=== PATIENT | male | born 1950 | race Caucasian/White ===

== ENCOUNTER 2017-06-16 13:00 | Inpatient (IN) | payer OTHER ==
[~2017-06-16] VITALS: Ht 180.3 cm; Wt 115.8 kg
[~2017-06-16 13:00] MED LIST: ALBIPROI INH; ALBU90OI6 INH; BUME2 PO; FURO20 PO; FURO80 PO; HYDACE5 PO; METAGLIP; METF500 PO; PIOG15 PO; SULTRIDS PO; VALS80 PO
[2017-06-16 13:49] LABS: BASOPHILS ABSOLUTE AUTO 0.04 K/mm3 (0.00-0.23); BASOPHILS PERCENT AUTO 0 % (0-2); EOSINOPHILS ABSOLUTE AUTO 0.02 K/mm3 (0.00-0.68); EOSINOPHILS PERCENT AUTO 0 % (0-6); Hematocrit 47.3 % (37.0-53.0); Hemoglobin 14.7 g/dL (13.5-17.5); IMMATURE GRAN PERCENT AUTO 1 % (0-1); LYMPHOCYTES ABSOLUTE AUTO 1.03 K/mm3 (0.84-5.20); LYMPHOCYTES PERCENT AUTO 9 % (21-46); MONOCYTES ABSOLUTE AUTO 0.96 K/mm3 (0.16-1.47); MONOCYTES PERCENT AUTO 8 % (4-13); Mean Corpuscular HGB 26.4 pg (26.0-34.0); Mean Corpuscular HGB Conc 31.1 g/dL (31.5-36.5); Mean Corpuscular Volume 85 fL (80-100); Mean Platelet Volume 9.3 fL (9.1-12.4); NEUTROPHILS ABSOLUTE AUTO 9.57 K/mm3 (1.96-9.15); NEUTROPHILS PERCENT AUTO 82 % (41-73); Platelet Count 466 K/mm3 (150-400); RDW Coefficient Variation 15.6 % (11.7-14.2); Red Blood Cell Count 5.56 M/mm3 (4.30-5.90); White Blood Cell Count 11.72 K/mm3 (4.00-11.30)
[2017-06-16 14:00] LABS: Alanine Aminotransfer (ALT/SGP 16 U/L (12-78); Albumin/Globulin Ratio 0.3 (0.8-1.8); Alk Phos 138 U/L (50-136); Anion Gap 4 mmol/L (6-16); Aspartate Aminotrans (AST/SGOT 21 U/L (12-37); Bilirubin, Total 0.9 mg/dL (0.1-1.0); Blood Urea Nitrogen 21 mg/dL (8-24); Bun/Creatinine Ratio 34.5 (12.0-20.0); CO2, Blood 32 mmol/L (21-32); Chloride, Blood 98 mmol/L (98-108); Creatinine, Blood 0.61 mg/dL (0.60-1.20); Globulin, Blood 6.7 g/dL (2.2-4.0); Glomerular Filtration Rate >60 (60-); Glucose, Blood 243 mg/dL (70-99); Potassium, Blood 4.1 mmol/L (3.5-5.5); Sodium, Blood 134 mmol/L (136-145); Total Protein, Blood 8.7 g/dL (6.4-8.2)
[2017-06-16 14:14] LABS: Source, Urine Clean Catch
[2017-06-16 14:32] LABS: Blood, Urine Neg (Neg); Glucose Qualitative, Urine Neg (Neg); Ketones, Urine 1+ (Neg); Leukocyte Esterase, Urine 3+ (Neg); Nitrite, Urine Pos (Neg); Protein, Urine 2+ (Neg); Specific Gravity, Urine 1.015 (1.003-1.022); Urobilinogen, Urine 4+ (Normal)
[2017-06-16 14:35] LABS: Bilirubin, Urine 1+ (Neg)
[2017-06-16 14:36] LABS: Appearance, Urine Turbid (Clear); Color, Urine Amber (P-Yellow)
[2017-06-16 14:38] LABS: Bacteria Many /hpf; Red Blood Cells, Urine 0-2 /hpf (0-2); Squamous Epithelial Cells Few /hpf (Few); Triple Phosphate Crystals Few /hpf
[2017-06-16 14:39] LABS: Amorphous Mod (0-Heavy)
[2017-06-16 14:41] LABS: Troponin I <0.015 ng/mL (0.000-0.040)
[2017-06-17 05:11] LABS: Hematocrit 43.7 % (37.0-53.0); Hemoglobin 13.3 g/dL (13.5-17.5); Mean Corpuscular HGB 26.5 pg (26.0-34.0); Mean Corpuscular HGB Conc 30.4 g/dL (31.5-36.5); Mean Corpuscular Volume 87 fL (80-100); Mean Platelet Volume 9.3 fL (9.1-12.4); Platelet Count 396 K/mm3 (150-400); RDW Coefficient Variation 15.4 % (11.7-14.2); RDW Standard Deviation 48.4 fL (35.1-46.3); Red Blood Cell Count 5.02 M/mm3 (4.30-5.90); White Blood Cell Count 10.85 K/mm3 (4.00-11.30)
[2017-06-17 05:27] LABS: International Normalized Ratio 1.21; Prothrombin Time Results 12.7 Sec (9.7-11.5)
[2017-06-17 05:44] LABS: Albumin, Blood 1.8 g/dL (3.4-5.0); Anion Gap 6 mmol/L (6-16); Blood Urea Nitrogen 19 mg/dL (8-24); Bun/Creatinine Ratio 27.8 (12.0-20.0); CO2, Blood 31 mmol/L (21-32); Calcium, Blood 8.4 mg/dL (8.5-10.1); Chloride, Blood 99 mmol/L (98-108); Creatinine, Blood 0.68 mg/dL (0.60-1.20); Glomerular Filtration Rate >60 (60-); Glucose, Blood 238 mg/dL (70-99); Magnesium, Blood 2.2 mg/dL (1.6-2.4); Phosphorus, Blood 3.6 mg/dL (2.5-4.9); Potassium, Blood 4.4 mmol/L (3.5-5.5); Sodium, Blood 136 mmol/L (136-145)
[2017-06-17 19:17] LABS: Vancomycin, Trough 10.2 ug/mL (5.0-10.0)
[2017-06-18 04:59] LABS: BASOPHILS ABSOLUTE AUTO 0.05 K/mm3 (0.00-0.23); BASOPHILS PERCENT AUTO 1 % (0-2); EOSINOPHILS ABSOLUTE AUTO 0.06 K/mm3 (0.00-0.68); EOSINOPHILS PERCENT AUTO 1 % (0-6); Hematocrit 36.5 % (37.0-53.0); Hemoglobin 11.1 g/dL (13.5-17.5); IMMATURE GRAN ABSOLUTE AUTO 0.08 K/mm3 (0.00-0.10); IMMATURE GRAN PERCENT AUTO 1 % (0-1); LYMPHOCYTES ABSOLUTE AUTO 0.67 K/mm3 (0.84-5.20); LYMPHOCYTES PERCENT AUTO 7 % (21-46); MONOCYTES ABSOLUTE AUTO 0.75 K/mm3 (0.16-1.47); MONOCYTES PERCENT AUTO 8 % (4-13); Mean Corpuscular HGB 26.4 pg (26.0-34.0); Mean Corpuscular HGB Conc 30.4 g/dL (31.5-36.5); Mean Corpuscular Volume 87 fL (80-100); Mean Platelet Volume 9.6 fL (9.1-12.4); NEUTROPHILS ABSOLUTE AUTO 8.38 K/mm3 (1.96-9.15); NEUTROPHILS PERCENT AUTO 84 % (41-73); Platelet Count 351 K/mm3 (150-400); RDW Coefficient Variation 15.4 % (11.7-14.2); RDW Standard Deviation 48.2 fL (35.1-46.3); Red Blood Cell Count 4.21 M/mm3 (4.30-5.90); White Blood Cell Count 9.99 K/mm3 (4.00-11.30)
[2017-06-19 05:08] LABS: BASOPHILS ABSOLUTE AUTO 0.04 K/mm3 (0.00-0.23); BASOPHILS PERCENT AUTO 0 % (0-2); EOSINOPHILS PERCENT AUTO 1 % (0-6); Hematocrit 34.8 % (37.0-53.0); Hemoglobin 10.3 g/dL (13.5-17.5); IMMATURE GRAN PERCENT AUTO 1 % (0-1); LYMPHOCYTES ABSOLUTE AUTO 0.78 K/mm3 (0.84-5.20); LYMPHOCYTES PERCENT AUTO 9 % (21-46); MONOCYTES ABSOLUTE AUTO 0.79 K/mm3 (0.16-1.47); MONOCYTES PERCENT AUTO 9 % (4-13); Mean Corpuscular HGB 26.7 pg (26.0-34.0); Mean Corpuscular HGB Conc 29.6 g/dL (31.5-36.5); Mean Platelet Volume 9.4 fL (9.1-12.4); NEUTROPHILS ABSOLUTE AUTO 7.09 K/mm3 (1.96-9.15); NEUTROPHILS PERCENT AUTO 80 % (41-73); Platelet Count 304 K/mm3 (150-400); RDW Coefficient Variation 15.3 % (11.7-14.2); RDW Standard Deviation 50.2 fL (35.1-46.3); Red Blood Cell Count 3.86 M/mm3 (4.30-5.90)
[2017-06-19 05:14] LABS: Mean Corpuscular Volume 90 fL (80-100)
[2017-06-19 05:30] LABS: Anion Gap 4 mmol/L (6-16); Blood Urea Nitrogen 15 mg/dL (8-24); Bun/Creatinine Ratio 30.2 (12.0-20.0); CO2, Blood 32 mmol/L (21-32); Calcium, Blood 7.8 mg/dL (8.5-10.1); Chloride, Blood 99 mmol/L (98-108); Glomerular Filtration Rate >60 (60-); Glucose, Blood 231 mg/dL (70-99); Potassium, Blood 4.1 mmol/L (3.5-5.5); Sodium, Blood 135 mmol/L (136-145)
[2017-06-23 11:04] LABS: BASOPHILS ABSOLUTE AUTO 0.03 K/mm3 (0.00-0.23); BASOPHILS PERCENT AUTO 1 % (0-2); EOSINOPHILS ABSOLUTE AUTO 0.06 K/mm3 (0.00-0.68); EOSINOPHILS PERCENT AUTO 1 % (0-6); Hematocrit 36.4 % (37.0-53.0); Hemoglobin 11.1 g/dL (13.5-17.5); IMMATURE GRAN ABSOLUTE AUTO 0.01 K/mm3 (0.00-0.10); IMMATURE GRAN PERCENT AUTO 0 % (0-1); LYMPHOCYTES PERCENT AUTO 14 % (21-46); MONOCYTES ABSOLUTE AUTO 0.51 K/mm3 (0.16-1.47); MONOCYTES PERCENT AUTO 10 % (4-13); Mean Corpuscular HGB 26.8 pg (26.0-34.0); Mean Corpuscular HGB Conc 30.5 g/dL (31.5-36.5); Mean Corpuscular Volume 88 fL (80-100); Mean Platelet Volume 8.9 fL (9.1-12.4); NEUTROPHILS PERCENT AUTO 74 % (41-73); Platelet Count 334 K/mm3 (150-400); RDW Coefficient Variation 15.9 % (11.7-14.2); RDW Standard Deviation 50.4 fL (35.1-46.3); Red Blood Cell Count 4.14 M/mm3 (4.30-5.90); White Blood Cell Count 5.11 K/mm3 (4.00-11.30)
[2017-06-23 11:28] LABS: Alanine Aminotransfer (ALT/SGP 15 U/L (12-78); Albumin, Blood 1.6 g/dL (3.4-5.0); Albumin/Globulin Ratio 0.3 (0.8-1.8); Alk Phos 131 U/L (50-136); Anion Gap 4 mmol/L (6-16); Aspartate Aminotrans (AST/SGOT 17 U/L (12-37); Bilirubin, Total 0.4 mg/dL (0.1-1.0); Blood Urea Nitrogen 17 mg/dL (8-24); Bun/Creatinine Ratio 38.6 (12.0-20.0); CO2, Blood 31 mmol/L (21-32); Calcium, Blood 8.4 mg/dL (8.5-10.1); Chloride, Blood 101 mmol/L (98-108); Creatinine, Blood 0.44 mg/dL (0.60-1.20); Globulin, Blood 5.7 g/dL (2.2-4.0); Glomerular Filtration Rate >60 (60-); Glucose, Blood 143 mg/dL (70-99); Potassium, Blood 4.2 mmol/L (3.5-5.5); Sodium, Blood 136 mmol/L (136-145); Total Protein, Blood 7.3 g/dL (6.4-8.2); Troponin I <0.015 ng/mL (0.000-0.040)
[2017-06-24 05:35] LABS: Hematocrit 36.1 % (37.0-53.0); Hemoglobin 10.9 g/dL (13.5-17.5); Mean Corpuscular HGB 26.5 pg (26.0-34.0); Mean Corpuscular HGB Conc 30.2 g/dL (31.5-36.5); Mean Corpuscular Volume 88 fL (80-100); Platelet Count 350 K/mm3 (150-400); RDW Standard Deviation 51.8 fL (35.1-46.3); Red Blood Cell Count 4.11 M/mm3 (4.30-5.90)
[2017-06-25 05:35] LABS: Hematocrit 35.1 % (37.0-53.0); Hemoglobin 10.6 g/dL (13.5-17.5); Mean Corpuscular HGB 26.5 pg (26.0-34.0); Mean Corpuscular HGB Conc 30.2 g/dL (31.5-36.5); Mean Corpuscular Volume 88 fL (80-100); Mean Platelet Volume 9.4 fL (9.1-12.4); Platelet Count 329 K/mm3 (150-400); RDW Coefficient Variation 15.8 % (11.7-14.2); RDW Standard Deviation 50.9 fL (35.1-46.3); White Blood Cell Count 2.29 K/mm3 (4.00-11.30)
[2017-06-26 04:47] LABS: Hematocrit 36.5 % (37.0-53.0); Hemoglobin 11.1 g/dL (13.5-17.5); Mean Corpuscular HGB 26.4 pg (26.0-34.0); Mean Corpuscular HGB Conc 30.4 g/dL (31.5-36.5); Mean Corpuscular Volume 87 fL (80-100); Mean Platelet Volume 8.9 fL (9.1-12.4); Platelet Count 324 K/mm3 (150-400); RDW Coefficient Variation 15.6 % (11.7-14.2); RDW Standard Deviation 49.6 fL (35.1-46.3); Red Blood Cell Count 4.21 M/mm3 (4.30-5.90); White Blood Cell Count 1.88 K/mm3 (4.00-11.30)
[2017-06-26 05:12] LABS: BAND PERCENT MAN 4 % (0-8); BASOPHILS ABSOLUTE MAN 0.01 K/mm3 (0.00-0.23); BASOPHILS PERCENT MAN 1 % (0-2); EOSINOPHILS ABSOLUTE MAN 0.09 K/mm3 (0.00-0.68); EOSINOPHILS PERCENT MAN 5 % (0-6); LYMPHOCYTES ABSOLUTE MAN 0.62 K/mm3 (0.84-5.20); LYMPHOCYTES PERCENT MAN 33 % (21-46); MONOCYTES ABSOLUTE MAN 0.56 K/mm3 (0.16-1.47); MONOCYTES PERCENT MAN 30 % (4-13); NEUTROPHILS ABSOLUTE MAN 0.58 K/mm3 (1.96-9.15); SEG NEUTROPHILS PERCENT MAN 27 % (41-73); TOTAL CELLS COUNTED 100
[2017-06-27 04:46] LABS: BASOPHILS ABSOLUTE AUTO 0.03 K/mm3 (0.00-0.23); BASOPHILS PERCENT AUTO 1 % (0-2); EOSINOPHILS ABSOLUTE AUTO 0.07 K/mm3 (0.00-0.68); EOSINOPHILS PERCENT AUTO 3 % (0-6); Hematocrit 35.9 % (37.0-53.0); Hemoglobin 10.9 g/dL (13.5-17.5); IMMATURE GRAN ABSOLUTE AUTO 0.01 K/mm3 (0.00-0.10); IMMATURE GRAN PERCENT AUTO 0 % (0-1); LYMPHOCYTES ABSOLUTE AUTO 0.87 K/mm3 (0.84-5.20); LYMPHOCYTES PERCENT AUTO 39 % (21-46); MONOCYTES ABSOLUTE AUTO 0.49 K/mm3 (0.16-1.47); MONOCYTES PERCENT AUTO 22 % (4-13); Mean Corpuscular HGB 26.3 pg (26.0-34.0); Mean Corpuscular HGB Conc 30.4 g/dL (31.5-36.5); Mean Corpuscular Volume 87 fL (80-100); Mean Platelet Volume 8.8 fL (9.1-12.4); NEUTROPHILS ABSOLUTE AUTO 0.78 K/mm3 (1.96-9.15); NEUTROPHILS PERCENT AUTO 35 % (41-73); Platelet Count 309 K/mm3 (150-400); RDW Coefficient Variation 15.6 % (11.7-14.2); RDW Standard Deviation 49.1 fL (35.1-46.3); Red Blood Cell Count 4.15 M/mm3 (4.30-5.90); White Blood Cell Count 2.25 K/mm3 (4.00-11.30)
[2017-06-28 05:00] LABS: BASOPHILS ABSOLUTE AUTO 0.03 K/mm3 (0.00-0.23); BASOPHILS PERCENT AUTO 1 % (0-2); EOSINOPHILS PERCENT AUTO 3 % (0-6); Hematocrit 37.2 % (37.0-53.0); Hemoglobin 11.2 g/dL (13.5-17.5); IMMATURE GRAN ABSOLUTE AUTO 0.01 K/mm3 (0.00-0.10); IMMATURE GRAN PERCENT AUTO 0 % (0-1); LYMPHOCYTES ABSOLUTE AUTO 1.04 K/mm3 (0.84-5.20); LYMPHOCYTES PERCENT AUTO 32 % (21-46); MONOCYTES ABSOLUTE AUTO 0.56 K/mm3 (0.16-1.47); MONOCYTES PERCENT AUTO 17 % (4-13); Mean Corpuscular HGB 26.3 pg (26.0-34.0); Mean Corpuscular HGB Conc 30.1 g/dL (31.5-36.5); Mean Corpuscular Volume 87 fL (80-100); Mean Platelet Volume 9.1 fL (9.1-12.4); NEUTROPHILS ABSOLUTE AUTO 1.56 K/mm3 (1.96-9.15); NEUTROPHILS PERCENT AUTO 47 % (41-73); Platelet Count 323 K/mm3 (150-400); RDW Coefficient Variation 15.9 % (11.7-14.2); RDW Standard Deviation 50.3 fL (35.1-46.3); Red Blood Cell Count 4.26 M/mm3 (4.30-5.90)
[2017-06-29 04:46] LABS: BASOPHILS ABSOLUTE AUTO 0.03 K/mm3 (0.00-0.23); BASOPHILS PERCENT AUTO 1 % (0-2); EOSINOPHILS ABSOLUTE AUTO 0.12 K/mm3 (0.00-0.68); EOSINOPHILS PERCENT AUTO 3 % (0-6); Hematocrit 36.8 % (37.0-53.0); Hemoglobin 11.4 g/dL (13.5-17.5); IMMATURE GRAN ABSOLUTE AUTO 0.02 K/mm3 (0.00-0.10); IMMATURE GRAN PERCENT AUTO 0 % (0-1); LYMPHOCYTES ABSOLUTE AUTO 1.16 K/mm3 (0.84-5.20); LYMPHOCYTES PERCENT AUTO 26 % (21-46); MONOCYTES ABSOLUTE AUTO 0.54 K/mm3 (0.16-1.47); MONOCYTES PERCENT AUTO 12 % (4-13); Mean Corpuscular HGB 26.8 pg (26.0-34.0); Mean Corpuscular Volume 86 fL (80-100); Mean Platelet Volume 8.7 fL (9.1-12.4); NEUTROPHILS ABSOLUTE AUTO 2.59 K/mm3 (1.96-9.15); NEUTROPHILS PERCENT AUTO 58 % (41-73); Platelet Count 319 K/mm3 (150-400); RDW Coefficient Variation 15.9 % (11.7-14.2); Red Blood Cell Count 4.26 M/mm3 (4.30-5.90); White Blood Cell Count 4.46 K/mm3 (4.00-11.30)
[2017-06-29 05:11] LABS: Anion Gap 6 mmol/L (6-16); Blood Urea Nitrogen 26 mg/dL (8-24); Bun/Creatinine Ratio 53.3 (12.0-20.0); CO2, Blood 29 mmol/L (21-32); Calcium, Blood 8.3 mg/dL (8.5-10.1); Chloride, Blood 104 mmol/L (98-108); Creatinine, Blood 0.49 mg/dL (0.60-1.20); Glomerular Filtration Rate >60 (60-); Glucose, Blood 109 mg/dL (70-99); Potassium, Blood 4.1 mmol/L (3.5-5.5); Sodium, Blood 139 mmol/L (136-145)
[2017-06-30 04:53] LABS: BASOPHILS ABSOLUTE AUTO 0.05 K/mm3 (0.00-0.23); BASOPHILS PERCENT AUTO 1 % (0-2); EOSINOPHILS ABSOLUTE AUTO 0.14 K/mm3 (0.00-0.68); EOSINOPHILS PERCENT AUTO 3 % (0-6); Hematocrit 37.4 % (37.0-53.0); Hemoglobin 11.2 g/dL (13.5-17.5); IMMATURE GRAN ABSOLUTE AUTO 0.02 K/mm3 (0.00-0.10); IMMATURE GRAN PERCENT AUTO 0 % (0-1); LYMPHOCYTES ABSOLUTE AUTO 1.24 K/mm3 (0.84-5.20); LYMPHOCYTES PERCENT AUTO 26 % (21-46); MONOCYTES ABSOLUTE AUTO 0.52 K/mm3 (0.16-1.47); MONOCYTES PERCENT AUTO 11 % (4-13); Mean Corpuscular HGB 26.3 pg (26.0-34.0); Mean Corpuscular HGB Conc 29.9 g/dL (31.5-36.5); Mean Corpuscular Volume 88 fL (80-100); Mean Platelet Volume 8.8 fL (9.1-12.4); NEUTROPHILS PERCENT AUTO 60 % (41-73); Platelet Count 331 K/mm3 (150-400); RDW Standard Deviation 51.5 fL (35.1-46.3); Red Blood Cell Count 4.26 M/mm3 (4.30-5.90); White Blood Cell Count 4.87 K/mm3 (4.00-11.30)
[2017-06-30 05:11] LABS: Anion Gap 5 mmol/L (6-16); Blood Urea Nitrogen 25 mg/dL (8-24); Bun/Creatinine Ratio 53.8 (12.0-20.0); CO2, Blood 30 mmol/L (21-32); Calcium, Blood 8.4 mg/dL (8.5-10.1); Chloride, Blood 106 mmol/L (98-108); Creatinine, Blood 0.47 mg/dL (0.60-1.20); Glomerular Filtration Rate >60 (60-); Glucose, Blood 81 mg/dL (70-99); Potassium, Blood 3.9 mmol/L (3.5-5.5); Sodium, Blood 141 mmol/L (136-145)
[2017-07-02 14:47] LABS: BASOPHILS ABSOLUTE AUTO 0.04 K/mm3 (0.00-0.23); BASOPHILS PERCENT AUTO 1 % (0-2); EOSINOPHILS ABSOLUTE AUTO 0.13 K/mm3 (0.00-0.68); EOSINOPHILS PERCENT AUTO 2 % (0-6); Hemoglobin 12.1 g/dL (13.5-17.5); IMMATURE GRAN ABSOLUTE AUTO 0.02 K/mm3 (0.00-0.10); IMMATURE GRAN PERCENT AUTO 0 % (0-1); LYMPHOCYTES ABSOLUTE AUTO 1.12 K/mm3 (0.84-5.20); LYMPHOCYTES PERCENT AUTO 20 % (21-46); MONOCYTES ABSOLUTE AUTO 0.36 K/mm3 (0.16-1.47); MONOCYTES PERCENT AUTO 6 % (4-13); Mean Corpuscular HGB 26.5 pg (26.0-34.0); Mean Corpuscular HGB Conc 30.3 g/dL (31.5-36.5); Mean Corpuscular Volume 88 fL (80-100); Mean Platelet Volume 8.8 fL (9.1-12.4); NEUTROPHILS ABSOLUTE AUTO 4.07 K/mm3 (1.96-9.15); NEUTROPHILS PERCENT AUTO 71 % (41-73); Platelet Count 312 K/mm3 (150-400); RDW Coefficient Variation 15.7 % (11.7-14.2); RDW Standard Deviation 50.2 fL (35.1-46.3); Red Blood Cell Count 4.57 M/mm3 (4.30-5.90); White Blood Cell Count 5.74 K/mm3 (4.00-11.30)
[2017-07-02 15:08] LABS: Alanine Aminotransfer (ALT/SGP 22 U/L (12-78); Albumin, Blood 2.2 g/dL (3.4-5.0); Albumin/Globulin Ratio 0.4 (0.8-1.8); Alk Phos 155 U/L (50-136); Anion Gap 6 mmol/L (6-16); Aspartate Aminotrans (AST/SGOT 18 U/L (12-37); Bilirubin, Total 0.3 mg/dL (0.1-1.0); Blood Urea Nitrogen 24 mg/dL (8-24); Bun/Creatinine Ratio 53.5 (12.0-20.0); CO2, Blood 29 mmol/L (21-32); Calcium, Blood 8.4 mg/dL (8.5-10.1); Chloride, Blood 102 mmol/L (98-108); Creatinine, Blood 0.45 mg/dL (0.60-1.20); Globulin, Blood 5.5 g/dL (2.2-4.0); Glomerular Filtration Rate >60 (60-); Glucose, Blood 205 mg/dL (70-99); Potassium, Blood 4.3 mmol/L (3.5-5.5); Sodium, Blood 137 mmol/L (136-145); Total Protein, Blood 7.7 g/dL (6.4-8.2)
[2017-07-05] MEDS ORDERED: Tylenol325 MG PO (13:37)
[2017-07-05] MEDS ORDERED: ALBU2.5V5 NEB ×2 (13:37→13:38)
[2017-07-05] MEDS ORDERED: Juven1 EACH PO (13:38)
[2017-07-05] MEDS ORDERED: ASCO500 PO (13:39)
[2017-07-05] MEDS ORDERED: DULO60 PO (13:40)
[2017-07-05] MEDS ORDERED: Ferrous Sulfat325 MG PO (13:41)
[2017-07-05] MEDS ORDERED: HYDR1TAB94 PO (13:42)
[2017-07-05] MEDS ORDERED: GABA100 PO (13:42)
[2017-07-05] MEDS ORDERED: Novolog Fl100 UNIT/1 INJ (13:43)
[2017-07-05] MEDS ORDERED: LEVFLO500 PO (13:46)
[2017-07-05] MEDS ORDERED: INSDET100 SC (13:46)
[2017-07-05] MEDS ORDERED: Nystop60 GM TOP (13:47)
[2017-07-05] MEDS ORDERED: SENN187 PO (13:48)
[2017-07-05] MEDS ORDERED: ZINC220 PO (13:48)
== END 2017-07-05 14:49 | DRG 239 ==
LOC: ER 13:00 → MEDS 15:55 → ENPENDDIS 07-05 10:00 → MEDS 07-05 14:49
PROVIDERS: Emergency Medicine; Family Medicine; Internal Medicine; Orthopaedic Surgery; Physician Assistant
PROC: 3E0234Z Introduction of Serum, Toxoid and Vaccine into Muscle, Percutaneous Approach (ICD-10-PCS; 2017-06-16)
PROC: 0Y6D0Z3 Detachment at Left Upper Leg, Low, Open Approach (ICD-10-PCS; principal; 2017-06-18)
DX: E11.52 Type 2 diabetes mellitus with diabetic peripheral angiopathy with gangrene (principal); A48.0 Gas gangrene; E66.2 Morbid (severe) obesity with alveolar hypoventilation; Z68.44 Body mass index [BMI] 60.0-69.9, adult; I50.32 Chronic diastolic (congestive) heart failure; N39.0 Urinary tract infection, site not specified; M86.8X7 Other osteomyelitis, ankle and foot; L03.116 Cellulitis of left lower limb; E11.65 Type 2 diabetes mellitus with hyperglycemia; D63.8 Anemia in other chronic diseases classified elsewhere; F17.200 Nicotine dependence, unspecified, uncomplicated; J44.9 Chronic obstructive pulmonary disease, unspecified; F43.10 Post-traumatic stress disorder, unspecified; I27.81 Cor pulmonale (chronic); Z23 Encounter for immunization; D72.819 Decreased white blood cell count, unspecified; B96.4 Proteus (mirabilis) (morganii) as the cause of diseases classified elsewhere; R53.82 Chronic fatigue, unspecified; E11.69 Type 2 diabetes mellitus with other specified complication; G89.29 Other chronic pain; F32.9 Major depressive disorder, single episode, unspecified; S30.810A Abrasion of lower back and pelvis, initial encounter; X58.XXXA Exposure to other specified factors, initial encounter; R19.7 Diarrhea, unspecified; L89.152 Pressure ulcer of sacral region, stage 2; E11.42 Type 2 diabetes mellitus with diabetic polyneuropathy; Z88.5 Allergy status to narcotic agent; Z91.19 Patient's noncompliance with other medical treatment and regimen; Z99.81 Dependence on supplemental oxygen
CPT/HCPCS: 36415; 71046; 73560-LT; 73630; 80048; 80053; 80069; 80202; 81001; 82947; 83036; 83605; 83735; 83880; 84443; 84484; 85007; 85025; 85027; 85610; 85651; 85730; 86140; 87040; 87070; 87075; 87077; 87086; 87147; 87186; 87205; 87493; 88307; 93005; 93010; 93922; 94640; 94664; 94667; 94760; 94762; 96374; 96375; 97110; 97162; 97166; 97530; 98960; 99285; 99407; C9113; G0008; G8978; G8979; G8987; G8988; J0696; J1650; J1815; J2250; J2405; J2543; J3010; J3370; J7030; J7050; J7120; Q2038

== ENCOUNTER → 2017-07-07 | Outpatient (CLI) | payer OTHER ==
[~2017-07-07] MED LIST changes: +ALBU2.5V5 NEB; +ASCO500 PO; +DULO60 PO; +Ferrous Sulfat325 MG PO; +GABA100 PO; +HYDR1TAB94 PO; +INSDET100 SC; +Juven1 EACH PO; +LEVFLO500 PO; +Novolog Fl100 UNIT/1 INJ; +Nystop60 GM TOP; +SENN187 PO; +Tylenol325 MG PO; +ZINC220 PO
== END ==
LOC: LAB UVN 11:23 → EDSTATUS 11:55
DX: L03.116 Cellulitis of left lower limb (principal); M86.172 Other acute osteomyelitis, left ankle and foot; I73.9 Peripheral vascular disease, unspecified; A48.0 Gas gangrene
CPT/HCPCS: 87070; 87075; 87205

== ENCOUNTER 2017-07-12 08:01 | Day surgery (SDC) | payer OTHER | END 2017-07-12 23:19 | disposition home or self-care (01) | LOC: WOUND | PROC: 0HBLXZZ Excision of Left Lower Leg Skin, External Approach (ICD-10-PCS; principal; 2017-07-12) | DX: T81.89XA Other complications of procedures, not elsewhere classified, initial encounter (principal); Z89.612 Acquired absence of left leg above knee; I50.32 Chronic diastolic (congestive) heart failure; I73.9 Peripheral vascular disease, unspecified; G47.33 Obstructive sleep apnea (adult) (pediatric); F33.9 Major depressive disorder, recurrent, unspecified; I27.81 Cor pulmonale (chronic); Z87.891 Personal history of nicotine dependence; E11.9 Type 2 diabetes mellitus without complications | CPT/HCPCS: G0463 ==

== ENCOUNTER 2017-07-26 00:50 | Day surgery (SDC) | payer MEDICARE, OTHER | END 2017-07-26 22:46 | disposition home or self-care (01) | LOC: WOUND 00:50 | DX: Z48.00 Encounter for change or removal of nonsurgical wound dressing (principal); Z89.612 Acquired absence of left leg above knee; I50.32 Chronic diastolic (congestive) heart failure; I73.9 Peripheral vascular disease, unspecified; G47.33 Obstructive sleep apnea (adult) (pediatric); F33.9 Major depressive disorder, recurrent, unspecified; I27.81 Cor pulmonale (chronic) | CPT/HCPCS: G0463 ==

== ENCOUNTER 2018-07-21 05:45 | Inpatient (IN) | payer OTHER ==
[~2018-07-21] VITALS: Ht 177.8 cm; Wt 144.7 kg
[2018-07-21 06:04] LABS: PCO2 Arterial 54.3 mmHg (35-45); PO2 Arterial 71.8 mmHg (80-100); pH Blood Arterial 7.39 (7.35-7.45)
[2018-07-21 06:06] LABS: BASOPHILS ABSOLUTE AUTO 0.04 K/mm3 (0.00-0.23); BASOPHILS PERCENT AUTO 1 % (0-2); EOSINOPHILS ABSOLUTE AUTO 0.11 K/mm3 (0.00-0.68); EOSINOPHILS PERCENT AUTO 1 % (0-6); Hematocrit 48.9 % (37.0-53.0); Hemoglobin 15.3 g/dL (13.5-17.5); IMMATURE GRAN ABSOLUTE AUTO 0.03 K/mm3 (0.00-0.10); IMMATURE GRAN PERCENT AUTO 0 % (0-1); LYMPHOCYTES ABSOLUTE AUTO 0.92 K/mm3 (0.84-5.20); LYMPHOCYTES PERCENT AUTO 11 % (21-46); MONOCYTES ABSOLUTE AUTO 0.61 K/mm3 (0.16-1.47); MONOCYTES PERCENT AUTO 7 % (4-13); Mean Corpuscular HGB 28.5 pg (26.0-34.0); Mean Corpuscular HGB Conc 31.3 g/dL (31.5-36.5); Mean Corpuscular Volume 91 fL (80-100); Mean Platelet Volume 9.6 fL (9.1-12.4); NEUTROPHILS PERCENT AUTO 80 % (41-73); Platelet Count 177 K/mm3 (150-400); RDW Coefficient Variation 14.7 % (11.7-14.2); RDW Standard Deviation 49.2 fL (35.1-46.3); Red Blood Cell Count 5.36 M/mm3 (4.30-5.90); White Blood Cell Count 8.61 K/mm3 (4.00-11.30)
[2018-07-21] MEDS ORDERED: Vitamin D400 UNI2 (06:07)
[2018-07-21] MEDS ORDERED: Flonase 0.05% N16 GM (06:09)
[2018-07-21] MEDS ORDERED: STRIVERDI RESPIM4 GM (06:09)
[2018-07-21] MEDS ORDERED: DICL25ER (06:09)
[2018-07-21 06:29] LABS: Alanine Aminotransfer (ALT/SGP 15 U/L (12-78); Albumin, Blood 3.3 g/dL (3.4-5.0); Albumin/Globulin Ratio 0.7 (0.8-1.8); Alk Phos 159 U/L (50-136); Anion Gap 4 mmol/L (6-16); Aspartate Aminotrans (AST/SGOT 8 U/L (12-37); Bilirubin, Total 0.5 mg/dL (0.1-1.0); Blood Urea Nitrogen 12 mg/dL (8-24); Bun/Creatinine Ratio 21.9 (12.0-20.0); CO2, Blood 34 mmol/L (21-32); Calcium, Blood 8.9 mg/dL (8.5-10.1); Chloride, Blood 99 mmol/L (98-108); Creatinine, Blood 0.55 mg/dL (0.60-1.20); Globulin, Blood 4.6 g/dL (2.2-4.0); Glomerular Filtration Rate >60 (60-); Glucose, Blood 235 mg/dL (70-99); Potassium, Blood 3.9 mmol/L (3.5-5.5); Sodium, Blood 137 mmol/L (136-145); Total Protein, Blood 7.9 g/dL (6.4-8.2); Troponin I <0.015 ng/mL (0.000-0.040)
--- NOTE | 2018-07-21 09:41 | NUR ---
Assumed Care: Assumed care of pt at approx 0945 when pt arrived to unit from ED. VSS. Mild resp distress post transfer to new bed. Denies any pain at this time. Arrived to room on 4L O2 NC - baseline 2L O2 NC. After a few minutes post transfer, pt states that his breathing did not feel SOB at rest any more. Remaines on 4L NC at this time and denies BiPAP. Pt states that he has chronic numbness to the RLE, and venous ulcers noted. LLE amputation, and pt normally uses wheelchair at baseline. Pt repositions self. Calls appropriately. Currently resting in bed with call light within reach and family at bedside. Will continue to monitor.
[2018-07-21 11:53] LABS: Adenovirus Not Detected (NOT DETECT); Bordetella pertussis Not Detected (NOT DETECT); Chlamydophila pneumoniae Not Detected (NOT DETECT); Coronavirus 229E Not Detected (NOT DETECT); Coronavirus HKU1 Not Detected (NOT DETECT); Coronavirus NL63 Not Detected (NOT DETECT); Coronavirus OC43 Detected (NOT DETECT); Human Metapneumovirus Not Detected (NOT DETECT); Human Rhinovirus/Enterovirus Not Detected (NOT DETECT); Influenza A Not Detected (NOT DETECT); Influenza A/2009-H1 Not Detected (NOT DETECT); Influenza A/H1 Not Detected (NOT DETECT); Influenza A/H3 Not Detected (NOT DETECT); Influenza B Not Detected (NOT DETECT); Mycoplasma pneumoniae Not Detected (NOT DETECT); Parainfluenza Virus 1 Not Detected (NOT DETECT); Parainfluenza Virus 2 Not Detected (NOT DETECT); Parainfluenza Virus 3 Not Detected (NOT DETECT); Parainfluenza Virus 4 Not Detected (NOT DETECT); Respiratory Syncytial Virus Not Detected (NOT DETECT)
--- NOTE | 2018-07-21 17:27 | NUR ---
Shift Summary No acute changes since initial shift assessment. VSS. In no apparent sign of distress. Pt does become dyspnic w/exertion. Denies any pain t/o the shift. Pt has remained on 4L O2 NC and has refused BiPAP except for approx 45min when he wore it this afternoon. Pt repositions self. Calls appropriately. No changes or acute events on tele. Pt denies any acute events or complaints t/o the shift. Currently resting in bed with call light within reach. Denies any further questions, complaints or requests at this time. Will continue to monitor until report is given to leticia MAC.
--- NOTE | 2018-07-22 02:00 | NUR ---
ASSUMED CARE OF PATIENT AT APPROXIMATELY 1915 FROM EDDI Romero RN. PATIENT ALERT AND ORIENTED X4; FORGETFUL AT TIMES. PATIENT DENIED PAIN AT START OF SHIFT BUT LATER COMPLAINED OF HEADACHE; MEDICATED PER EMAR; GOOD RESULTS. PATIENT REPORTS CHRONIC NUMBESS IN LEGS. PATIENT DENIES NAUSEA. PATIENT AV DISSOCIATION ON TELE; OXYGEN SATURATION ABOVE 90% ON 4LPM VIA NC (BASELINE IS 2) OR ON BIPAP. PATIENT ABLE TO TOLERATE BIPAP FOR SHORT AMOUNT OF TIME. PATIENT MOVES AROUND IN BED; LAYS SIDEWAYS AT TIMES; EDUCATED ON FALL RISK AND PREVENTION. PATIENT BOOSTED AND REPOSISTIONED MULTIPLE TIMES. PIV S/L. PATIENT CURRENTLY SLEEPING IN BED; CALL LIGHT IN REACH; BED IN LOWEST POSISTION; BED ALARM ON; WILL CONTINUE TO MONITOR AND ASSESS UNTIL END OF SHIFT.
[2018-07-22 03:57] LABS: Hematocrit 49.2 % (37.0-53.0); Hemoglobin 15.3 g/dL (13.5-17.5); Mean Corpuscular HGB 28.4 pg (26.0-34.0); Mean Corpuscular HGB Conc 31.1 g/dL (31.5-36.5); Mean Corpuscular Volume 91 fL (80-100); Mean Platelet Volume 9.4 fL (9.1-12.4); Platelet Count 191 K/mm3 (150-400); RDW Coefficient Variation 14.9 % (11.7-14.2); RDW Standard Deviation 50.1 fL (35.1-46.3); Red Blood Cell Count 5.39 M/mm3 (4.30-5.90); White Blood Cell Count 8.57 K/mm3 (4.00-11.30)
[2018-07-22 04:18] LABS: Anion Gap 4 mmol/L (6-16); Blood Urea Nitrogen 25 mg/dL (8-24); Bun/Creatinine Ratio 48.6 (12.0-20.0); CO2, Blood 33 mmol/L (21-32); Calcium, Blood 9.1 mg/dL (8.5-10.1); Chloride, Blood 99 mmol/L (98-108); Creatinine, Blood 0.51 mg/dL (0.60-1.20); Glomerular Filtration Rate >60 (60-); Glucose, Blood 288 mg/dL (70-99); Potassium, Blood 4.6 mmol/L (3.5-5.5); Sodium, Blood 136 mmol/L (136-145)
--- NOTE | 2018-07-22 09:34 | NUR ---
Assumed Care: Assumed care of pt at approx 0700. VSS. In no apparent sign of distress. Pt is A&Ox4. Calls appropriately. Repositions self. C/o LOMBARDI this AM. Pt given tylenol and a cup of coffee per his request. 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 Camp aware and no further interventions or orders at this time. Pt has stable rate in the 80's. Denies any CP/pressure or dizziness. Dr. Camp to place orders for lasix, nicotene patch, and potassium replacement as well as ST per pt request d/t c/o coughing on food/drink per his report. See shift assessment for detailed assessment. Pt updated by Dr. Camp that he may expect a 3-5 day hospital stay d/t his viral infection and worsening resp status. Pt currently resting in bed with call light within reach. Denies any further questions, complaints or requests at this time. Will continue to monitor.
--- NOTE | 2018-07-22 14:29 | NUR ---
Met pt. in bed and talking with two family members in the room, pt.ots doing well offered prayers
--- NOTE | 2018-07-22 17:09 | NUR ---
Met with patient to review POLST he has one on file but put himself as DNR so new POLST needed. [facility]. Review of symptoms pt has been getting more headaches and starting to get some ringing in ears. He has cataracts and some blurry vision. no sores in mouth he does not have teeth. difficulty swallowing due todryness. Mild dyspnea today. no nausea or GI stress. pt states his foot hurts all the time and his back and shoulders ache. He states he dosed off in his chair at home and had a recent fall. Pt states he never really sleeps he doses off and ino if he sleeps a couple of hours. He states he has never had a sleep study. his cpap is really old and he cant stand it. He has never taken sleep medication. He is Struggling with grief and phantom leg pain. His children try to get him to go places but states he is starting to isolate. He says he feels like a freak. He relays a good relationship with his children. And, since his amputation his grandchildren are more involved in his life. He relays that his signed up for another tour in the and never came back. We reviewed that he did a good job of managing and raising his children. He would like to rebuild his life and have more independence and a dragline mechanic or girlfriend. We reviewed some startegies of getting out [facility] the [facility] and some spiritual care and grief support. We reviewed getting a sleep study and a new bipap and sleep hygience. Will update SS. Pt needs support post amputaion with grief and symptom management. We did not discuss his fear of loosing function of his other leg. Will update POLST with him, this visit ended up being theraputic dscussion of symptoms and stress. Pt may benefit from pulmonary program and /or home health.
--- NOTE | 2018-07-22 18:40 | NUR ---
Shift Summary: No acute changes since initial shift assessment. VSS. In no apparent sign of distress. Denies any pain at this time. Pt has remained on 6L O2 NC. C/o SOB with exertion. No acute changes or events on tele. Pt has repositioned self t/o the shift. Pt is currently resting in bed with call light within reach. Denies any further questions, complaints or requests at this time. Will continue to montior until report is given to leticia MAC.
[2018-07-23 04:08] LABS: BASOPHILS PERCENT AUTO 0 % (0-2); EOSINOPHILS PERCENT AUTO 0 % (0-6); Hematocrit 49.2 % (37.0-53.0); Hemoglobin 15.2 g/dL (13.5-17.5); IMMATURE GRAN ABSOLUTE AUTO 0.03 K/mm3 (0.00-0.10); IMMATURE GRAN PERCENT AUTO 0 % (0-1); LYMPHOCYTES ABSOLUTE AUTO 0.34 K/mm3 (0.84-5.20); LYMPHOCYTES PERCENT AUTO 4 % (21-46); MONOCYTES ABSOLUTE AUTO 0.27 K/mm3 (0.16-1.47); MONOCYTES PERCENT AUTO 3 % (4-13); Mean Corpuscular HGB 27.9 pg (26.0-34.0); Mean Corpuscular HGB Conc 30.9 g/dL (31.5-36.5); Mean Corpuscular Volume 90 fL (80-100); Mean Platelet Volume 9.8 fL (9.1-12.4); NEUTROPHILS PERCENT AUTO 93 % (41-73); Platelet Count 190 K/mm3 (150-400); RDW Coefficient Variation 14.7 % (11.7-14.2); RDW Standard Deviation 48.9 fL (35.1-46.3); Red Blood Cell Count 5.45 M/mm3 (4.30-5.90); White Blood Cell Count 9.34 K/mm3 (4.00-11.30)
[2018-07-23 04:24] LABS: Anion Gap 3 mmol/L (6-16); Blood Urea Nitrogen 31 mg/dL (8-24); Bun/Creatinine Ratio 55.6 (12.0-20.0); CO2, Blood 36 mmol/L (21-32); Calcium, Blood 8.9 mg/dL (8.5-10.1); Chloride, Blood 95 mmol/L (98-108); Creatinine, Blood 0.56 mg/dL (0.60-1.20); Glomerular Filtration Rate >60 (60-); Glucose, Blood 289 mg/dL (70-99); Potassium, Blood 4.7 mmol/L (3.5-5.5); Sodium, Blood 134 mmol/L (136-145)
--- NOTE | 2018-07-23 06:31 | NUR ---
END OF SHIFT SUMMARY ASSUMMED CARE OF PT @1900. PT HAD PREVIOUSLY BEEN TITRATED DOWN TO 4L NC BY RT. PT NOT TOLERATING WELL, THIS NURSE TITRATED BACK UP TO 5L NC. PT HAS TOLERATED THIS 02 AMOUNT WELL T/O NIGHT. BIPAP AT BEDSIDE, PT HAS NOT USED IT THIS SHIFT. PT HAS BEEN AWAKE FOR MAJORITY OF NIGHT. HAS ONLY BEGAN TOREST IN LAST FEW HOURS. PT HAS REQUIRED ASSISTANCE WITH URINATING INTO URINAL MULTIPLE TIMES THIS SHIFT. PT HAS BEEN REPOSITIONING SELF. HAS BEEN AT SIDE OF BED FOR MOST OF SHIFT. LUNGS HAVE REMIANED COARSE WITH EXPIRATORY WHEAZES. WHEEZES HAVE LESSENED THIS SHIFT. PT CONTINUES TO BE IN AV DISSOCIATION RHYTHM PER MASTER COASTAL WATERS. RL ULCERS, ASSESED BY NURSE, MEPILEX REAPPLIED AT BEGINNING OF SHIFT. PT VSS T/O SHIFT. PT VERY COOPERATIVE AND FRIENDLY T/O NIGHT. WILL CONTINUE TO MONITOR UNTIL SHIFT CHANGE.
--- NOTE | 2018-07-23 17:35 | NUR ---
The pt has been cooperative, alert, and without complaints throughout the day. Oxygen was weaned down to 4 l/min and he has kept his spo2 greater than 89%. Activity is limited to sitting on the side of the bed, and he was awake all day today. Lung sounds wheezy this morning, but no dypsnea at rest. Appetite good, voiding using the urinal. States he has not had a bowel movement for 2 days but that every 5-6 days is not unusual for him. He declined bowel care today. Blood sugar was elevated quite a bit this evening, at 355. He is covered with a sliding scale, but no long acting insulin or oral hypoglycemic medications. Vancomycin was started IV today by Dr. Camp, in addition to oral azithromycin which the pt had been receiving.
--- NOTE | 2018-07-24 01:15 | NUR ---
RESP STATUS PT NOTED TO HAVE INCREASING WHEEZING, EXP/INSP. LUNS SOUNDS CONGESTED TO AUSCULTATION. RT NOTIFIED, BREATHING TREATMENT ADMINISTERED. BREATH SOUNDS PRESENT WITH LESSENED WHEEZING/CONGESTION, PT PRESENTS WITH DECREASED LABORED BREATHING. PT NOW RESTING, EVEN CHEST RISE. SPO2 92%, 4L NC.
[2018-07-24 04:35] LABS: BASOPHILS ABSOLUTE AUTO 0.01 K/mm3 (0.00-0.23); BASOPHILS PERCENT AUTO 0 % (0-2); EOSINOPHILS PERCENT AUTO 0 % (0-6); Hematocrit 49.9 % (37.0-53.0); Hemoglobin 15.3 g/dL (13.5-17.5); IMMATURE GRAN ABSOLUTE AUTO 0.04 K/mm3 (0.00-0.10); IMMATURE GRAN PERCENT AUTO 0 % (0-1); LYMPHOCYTES ABSOLUTE AUTO 0.66 K/mm3 (0.84-5.20); LYMPHOCYTES PERCENT AUTO 7 % (21-46); MONOCYTES ABSOLUTE AUTO 0.92 K/mm3 (0.16-1.47); MONOCYTES PERCENT AUTO 9 % (4-13); Mean Corpuscular HGB Conc 30.7 g/dL (31.5-36.5); Mean Corpuscular Volume 91 fL (80-100); Mean Platelet Volume 9.7 fL (9.1-12.4); NEUTROPHILS ABSOLUTE AUTO 8.45 K/mm3 (1.96-9.15); NEUTROPHILS PERCENT AUTO 84 % (41-73); Platelet Count 194 K/mm3 (150-400); RDW Standard Deviation 49.7 fL (35.1-46.3); Red Blood Cell Count 5.46 M/mm3 (4.30-5.90); White Blood Cell Count 10.08 K/mm3 (4.00-11.30)
[2018-07-24 04:49] LABS: Anion Gap 4 mmol/L (6-16); Blood Urea Nitrogen 35 mg/dL (8-24); Bun/Creatinine Ratio 59.9 (12.0-20.0); CO2, Blood 38 mmol/L (21-32); Calcium, Blood 8.9 mg/dL (8.5-10.1); Chloride, Blood 97 mmol/L (98-108); Creatinine, Blood 0.58 mg/dL (0.60-1.20); Glomerular Filtration Rate >60 (60-); Glucose, Blood 105 mg/dL (70-99); Sodium, Blood 139 mmol/L (136-145)
--- NOTE | 2018-07-24 06:20 | NUR ---
END OF SHIFT SUMMARY ASSUMED CARE OF PT @1900. PT ALERT AND ORIENTED, TALKING APPROPRIATELY WITH STAFF. PT ON 4L NC QAT BEGINNING OF SHIFT. HAS REQUIRED TITRATION TO 5L WHILE SLEEPING. PT HAS BEEN AWAKE FOR MAJORITY OF SHIFT, RESTING THE LAST 3 HOURS. PT STATES RECEIVING BEDBATH LAST DAY SHIFT WHEN ASKED. LUNG SOUNDS HAVE FLUCTUATED FROM EXTREMELY WHEEZY/CONGESTED TO SIGNIFICANTLY LESS WHEEZY WITH BREATHING TREATMENTS. VANCOMYCIN INFUSED. PT STATES WANTING TO "GET OUT OF HERE" SOON HE CAN. URINE CONTINUES TO BE DARK YELLOW, CLOUDY, FOUL SMELL. WILL CONTINUE TO MONITOR PT UNTIL SHIFT CHANGE.
--- NOTE | 2018-07-24 16:16 | NUR ---
EVENING NOTE PT RESTING.SR. NO ECTOPY. LUNGS EXP WHEEZES T/O. WHEEZES ARE BETTER AFTER BREATHING TREAMENT. SCANR COUGH. HE IS USING THE FLUTTER VALVE. PT INDEPENDENT ON BED MOBILITY. HE NEEDS STAFF TO PLACE THE URINAL FOR VOIDING. PT HAS DENIED PAIN OR DISCOMFORT. GOOD APPETITE. COVERED BLOOD SUGAR PER SLIDING SCALE CONVERAGE BREAKFAST AND LUNCH. H/L PATENT. WOUND CARE TO RIGHT LE DONE. PLEASE SEE WOUND CARE ASSESSMENT FOR DETAILS. CONTINUE POT.
--- NOTE | 2018-07-25 02:01 | NUR ---
CHANGE IN MENTAL STATUS 0100 THIS NURSE WALKED INTO THE ROOM LIZZ GARNETT RN WAS ATTEMPTING TO OBTAIN VITAL SIGNS FROM PATIENT. UP UNTIL THIS TIME, PATIENT HAD APPEARED TO BE SLEEPING IN ROOM, LIGHTS OFF, 4L NC FLOWING. PT HAD BEEN CONFUSED BUT REDIRECTABLE BEFORE GOING TO SLEEP. PT HAD BEEN UP ONCE TO EAT A SANDWHICH, AND SHOWED NO SIGN OF COGNITION CHANGE. PT TALKING WITH STAFF. UPON ATTEMPTING TO OBTAIN VITALS, PT WOKEN UP AND SHOWS APARENT SIGNS OF AMS. PT PULLS NC OUT OF NOSE, SPEECH GRABLED, PT APPEARS AGITATED. THIS NURSE COMES IN TO HELP LIZZ MAC OBTAIN VITALS AND PLACE NC BACK IN NOSE. PT BEGINS TO SWING AT STAFF. PT RED IN FACE. BRANDYN GOLDEN CALLED BY CHARGE NURSE RENE TO OBTAIN NEEDED STAFF TO RESTRAIN PATIENT IN ORDER TO OBTAIN VS AND REPLACE NC. SECURITY TO ROOM. PT PLACED IN 4PT SOFT RESTRAINTS. SPO2 PRESENTS 75%. NC REPLACED, UNABLE TO GET SATS BACK ABOVE 90%, PT GRABBING AND PULLING NC OUT AND CHEWING ON IT. PT ATEMPTED TO BITE THIS NURSE MULTIPLE TIMES, SECURITY ABLE TO RESTRAIN HEAD. NONREBREATHER, 15L PLACED ON PT. SPO2 90%. PT EXTRMELY AGITATED AND CONFUSED AT THIS POINT. RESPIRATORY THERAPIST ANJELICA TO ROOM TO OBTAIN VBG, OBTAINED SUCCESFULLY. DR BEAR CALLED REGARDING PT. DR BEAR HAS PRIOR KNOWLEDGE OF PT. STATES TO PLACE ORDERS TO TRANSFER TO ICU, BEGIN BIPAP TREATMENT DUE TO PLAUSIBLE CO2 RETENTION ETIOLOGY OF AMS, AND TO PLACE PT ON PRECEDEX DRIP IN ICU HE HAD REQUIRED IT PREVIOUSLY IN ICU TO TOLERATE BIPAP. ORDERS ALONGSIDE ORDERS FOR 4PT SOFT RESTRAINTS AND ROBYN VEST PLACED. 0145 PT TAKEN TO ICU. BIPAP IN TOW. PT TO ROOM, TRANSFERRED TO ICU BED. MULTIPLE NURSES IN ROOM, RT ANJELICA IN ROOM TO BEGIN BIPAP. REPORT GIVEN TO NURSE, NURSE HAD PREVIOUSLY BEEN THE NURSE IN CARE FOR THIS PT BEFORE TRANSFERRING TO PCU. ALL BELONGINGS BROUGHT TO ICU WITH PATIENT.
--- NOTE | 2018-07-25 05:23 | NUR ---
PT TRANSFERRED TO ROOM APPROX 0430. LIFTING ASSISTANCE NEEDED FROM BED TO BED. A/O NO C/O PAIN. VSS. CALL LIGHT IN REACH.
--- NOTE | 2018-07-25 13:48 | NUR ---
PT REPORTS TAKING HIS CYMBALTA AT BEDTIME
--- NOTE | 2018-07-25 18:40 | NUR ---
SHIFT SUMMARY PT MOVING ABOUT IN BED AND LAYING HIS HEAD AT FOOT OF BED STATING HE PREFERS THAT POSITION. NO RESP DISTRESS NOTED. REMAINS ON O2. HOPES TO DISCHARGE TOMORROW. HE REPORTS HE HAS A CAREGIVER AT HOME.
--- NOTE | 2018-07-26 05:16 | NUR ---
VSS, AFEBRILE, A/O, PT SLEPT WELL FOR SOME TIME BUT WOKE VERY EARLY. PT DENIES PAIN, AND REPORTS A DESIRE TO GO HOME SOON POSSIBLE. PT SPENDS MUCH OF HIS TIME TALKING ON HIS CELL PHONE. NO SIGNIFICANT CHANGES NOTED. WILL REPORT TO ON-COMING SHIFT.
[2018-07-26 05:24] LABS: BASOPHILS ABSOLUTE AUTO 0.02 K/mm3 (0.00-0.23); BASOPHILS PERCENT AUTO 0 % (0-2); EOSINOPHILS ABSOLUTE AUTO 0.12 K/mm3 (0.00-0.68); EOSINOPHILS PERCENT AUTO 2 % (0-6); Hematocrit 47.9 % (37.0-53.0); Hemoglobin 14.6 g/dL (13.5-17.5); IMMATURE GRAN ABSOLUTE AUTO 0.03 K/mm3 (0.00-0.10); IMMATURE GRAN PERCENT AUTO 1 % (0-1); LYMPHOCYTES ABSOLUTE AUTO 1.29 K/mm3 (0.84-5.20); LYMPHOCYTES PERCENT AUTO 20 % (21-46); MONOCYTES ABSOLUTE AUTO 0.52 K/mm3 (0.16-1.47); MONOCYTES PERCENT AUTO 8 % (4-13); Mean Corpuscular HGB Conc 30.5 g/dL (31.5-36.5); Mean Corpuscular Volume 92 fL (80-100); Mean Platelet Volume 9.5 fL (9.1-12.4); NEUTROPHILS ABSOLUTE AUTO 4.41 K/mm3 (1.96-9.15); NEUTROPHILS PERCENT AUTO 69 % (41-73); Platelet Count 172 K/mm3 (150-400); RDW Coefficient Variation 14.5 % (11.7-14.2); RDW Standard Deviation 49.1 fL (35.1-46.3); Red Blood Cell Count 5.21 M/mm3 (4.30-5.90); White Blood Cell Count 6.39 K/mm3 (4.00-11.30)
[2018-07-26 05:43] LABS: Anion Gap 2 mmol/L (6-16); Blood Urea Nitrogen 25 mg/dL (8-24); Bun/Creatinine Ratio 47.7 (12.0-20.0); CO2, Blood 40 mmol/L (21-32); Calcium, Blood 8.8 mg/dL (8.5-10.1); Chloride, Blood 97 mmol/L (98-108); Creatinine, Blood 0.52 mg/dL (0.60-1.20); Glomerular Filtration Rate >60 (60-); Glucose, Blood 137 mg/dL (70-99); Potassium, Blood 4.4 mmol/L (3.5-5.5); Sodium, Blood 139 mmol/L (136-145)
[2018-07-26] MEDS ORDERED: CEFU500T30 PO (11:28)
[2018-07-26] MEDS ORDERED: FURO40 PO (11:29)
[2018-07-26] MEDS ORDERED: Nicoderm Cq1 EAC1 TOP (11:30)
[2018-07-26] MEDS ORDERED: PRED10 (11:30)
[2018-07-26] MEDS ORDERED: PRED20 (11:34)
[2018-07-26] MEDS ORDERED: POTA10T PO (11:35)
[2018-07-26] MEDS ORDERED: BRAIN MIGHT-DH1 EACH PO (11:38)
[2018-07-26] MEDS ORDERED: METF500 (11:39)
--- NOTE | 2018-07-26 11:59 | NUR ---
Met pt in bed and talking to family members in the room on visit ,pt. is doing much better encouraged him and prayed for him.
--- NOTE | 2018-07-26 16:08 | NUR ---
DISCHARGED TO HOME BY 1330 WITH INSTRUCTIONS AND BELONGINGS. HE HAS HOME O2 ALREADY. [facility] 11 AM. 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
== END 2018-07-26 13:30 | disposition home or self-care (01) | DRG 189 ==
LOC: ER 05:45 → PCU 07:44 → MEDS 07:44 → PCU 08:34 → MEDS 07-25 04:33 → ENPENDDIS 07-26 11:39 → MEDS 07-26 13:30
PROVIDERS: Emergency Medicine; Internal Medicine; ADMIT Hospitalist
DX: J96.21 Acute and chronic respiratory failure with hypoxia (principal); J13 Pneumonia due to Streptococcus pneumoniae; J44.1 Chronic obstructive pulmonary disease with (acute) exacerbation; E66.2 Morbid (severe) obesity with alveolar hypoventilation; I50.32 Chronic diastolic (congestive) heart failure; E11.9 Type 2 diabetes mellitus without complications; Z79.84 Long term (current) use of oral hypoglycemic drugs; F17.210 Nicotine dependence, cigarettes, uncomplicated; M54.9 Dorsalgia, unspecified; E11.40 Type 2 diabetes mellitus with diabetic neuropathy, unspecified; E66.01 Morbid (severe) obesity due to excess calories; Z89.612 Acquired absence of left leg above knee; F32.9 Major depressive disorder, single episode, unspecified; Z99.81 Dependence on supplemental oxygen
CPT/HCPCS: 36415; 36600; 71045; 80048; 80053; 82803; 82947; 83880; 84145; 84484; 85025; 85027; 87070; 87186; 87205; 87486; 87581; 87633; 87798; 92526; 92610; 93005; 93010; 94640; 94644; 94660; 94667; 94760; 94761; 94762; 96374; 96375; 99285-25; A9270-GY; J0456; J0696; J1650; J2920; J2930; J3370; J7050; J7512

== ENCOUNTER 2018-12-05 08:59 | Inpatient (IN) | payer MEDICARE, OTHER ==
[~2018-12-05] VITALS: Ht 175.3 cm; Wt 149.2 kg
[~2018-12-05 08:59] MED LIST changes: +B Complex #11 EACH PO; +CEFU500T30 PO; +DULO30 PO; -DULO60 PO; +FURO40 PO; +Ferrous Glucon324 M1 PO; -Ferrous Sulfat325 MG PO; +Flonase 0.05% N16 GM; -GABA100 PO; +GABA300 PO; +HYDR1TAB94; -HYDR1TAB94 PO; +Nicoderm Cq1 EAC1 TOP; +POTA10T PO; +PRED10; +PRED20; +STIOLTO RESPIMAT4 GM INH; +VITAMIN D32000 UNI2 PO; +VOLTAREN100 GM TOP
[2018-12-05 09:43] LABS: pH Blood Arterial 7.36 (7.35-7.45)
[2018-12-05 09:44] LABS: PCO2 Arterial 71 mmHg (35-45)
[2018-12-05 09:55] LABS: BASOPHILS ABSOLUTE AUTO 0.02 K/mm3 (0.00-0.23); BASOPHILS PERCENT AUTO 0 % (0-2); EOSINOPHILS ABSOLUTE AUTO 0.05 K/mm3 (0.00-0.68); EOSINOPHILS PERCENT AUTO 1 % (0-6); Hematocrit 44.2 % (37.0-53.0); Hemoglobin 13.8 g/dL (13.5-17.5); IMMATURE GRAN ABSOLUTE AUTO 0.03 K/mm3 (0.00-0.10); IMMATURE GRAN PERCENT AUTO 0 % (0-1); LYMPHOCYTES ABSOLUTE AUTO 0.68 K/mm3 (0.84-5.20); LYMPHOCYTES PERCENT AUTO 9 % (21-46); MONOCYTES ABSOLUTE AUTO 0.51 K/mm3 (0.16-1.47); MONOCYTES PERCENT AUTO 7 % (4-13); Mean Corpuscular HGB 29.1 pg (26.0-34.0); Mean Corpuscular HGB Conc 31.2 g/dL (31.5-36.5); Mean Corpuscular Volume 93 fL (80-100); Mean Platelet Volume 9.8 fL (9.1-12.4); NEUTROPHILS ABSOLUTE AUTO 6.35 K/mm3 (1.96-9.15); NEUTROPHILS PERCENT AUTO 83 % (41-73); Platelet Count 151 K/mm3 (150-400); RDW Coefficient Variation 13.9 % (11.7-14.2); RDW Standard Deviation 46.8 fL (35.1-46.3); Red Blood Cell Count 4.75 M/mm3 (4.30-5.90); White Blood Cell Count 7.64 K/mm3 (4.00-11.30)
[2018-12-05 10:15] LABS: Alanine Aminotransfer (ALT/SGP 15 U/L (12-78); Albumin, Blood 3.2 g/dL (3.4-5.0); Albumin/Globulin Ratio 0.8 (0.8-1.8); Alk Phos 128 U/L (50-136); Anion Gap 2 mmol/L (6-16); Aspartate Aminotrans (AST/SGOT 9 U/L (12-37); Bilirubin, Total 0.4 mg/dL (0.1-1.0); Blood Urea Nitrogen 14 mg/dL (8-24); CO2, Blood 39 mmol/L (21-32); Calcium, Blood 8.4 mg/dL (8.5-10.1); Chloride, Blood 97 mmol/L (98-108); Creatinine, Blood 0.48 mg/dL (0.60-1.20); Globulin, Blood 4.1 g/dL (2.2-4.0); Glomerular Filtration Rate >60 (60-); Glucose, Blood 244 mg/dL (70-99); Potassium, Blood 4.1 mmol/L (3.5-5.5); Sodium, Blood 138 mmol/L (136-145); Total Protein, Blood 7.3 g/dL (6.4-8.2); Troponin I <0.015 ng/mL (0.000-0.040)
[2018-12-05] MEDS ORDERED: ALBU90OI INH (11:14)
[2018-12-05] MEDS ORDERED: Aspirin EC81 MG PO (11:20)
[2018-12-05] MEDS ORDERED: ATOR80 PO (11:21)
[2018-12-05] MEDS ORDERED: ALBU3IS INH (14:00)
[2018-12-05 14:02] LABS: CPK Creatine Kinase 82 U/L (39-308); Troponin I <0.015 ng/mL (0.000-0.040)
--- NOTE | 2018-12-05 18:16 | NUR ---
PT ARRIVAL. PT ARRIVED ON UNIT VIA GURNEY. PT WAS INCONT OF URINE. PT WAS NOT ON BIPAP BUT ON 4L NC WITH O2 SATS >92%. PT'S VS STABLE AT THIS TIME. PT'S SKIN FOLDS IN HIS GROIN AREA A VERY RED, SORE AND SMELL OF URINE AND YEAST. PRESENT ON ADMIT PT HAS SKIN BREAKDOWN ON HIS COCCYX. PT IS ABLE TO HELP TURN HIMSELF IN BED. PT IS NOT AGREEABLE TO TO WEARING THE BIPAP AT THIS TIME. L/S COARSE RHONCHI AND WHEEZES T/O. BT PRESENT AND NORMOACTIVE. ABD IS SOFT AND NONTENDER TO PALP. PT IS GRUNTING WITH BREATHING AND USING ACCESSORY MUSCLES TO BREATH AT THIS TIME. O2 SATS ARE 90 ON 4LNC. CALL LIGHT IN REACH, BED IS LOCKED AND LOW WILL CONTINUE TO MONITOR.
[2018-12-05 18:28] LABS: Source, Urine Clean Catch
[2018-12-05 18:33] LABS: Bilirubin, Urine Neg (Neg); Blood, Urine 5+ (Neg); Glucose Qualitative, Urine 4+ (Neg); Ketones, Urine 4+ (Neg); Leukocyte Esterase, Urine 3+ (Neg); Nitrite, Urine Pos (Neg); Protein, Urine 1+ (Neg); Urobilinogen, Urine 1+ (Normal)
[2018-12-05 19:01] LABS: Appearance, Urine Hazy (Clear); Color, Urine Yellow (P-Yellow)
[2018-12-05 19:04] LABS: Bacteria Many /hpf; Red Blood Cells, Urine TNTC /hpf (0-2); Squamous Epithelial Cells Rare /hpf (Few); White Blood Cells, Urine TNTC /hpf (0-5)
[2018-12-05 22:08] LABS: CPK Creatine Kinase 98 U/L (39-308); Troponin I <0.015 ng/mL (0.000-0.040)
[2018-12-06 03:52] LABS: Hematocrit 44.7 % (37.0-53.0); Hemoglobin 13.8 g/dL (13.5-17.5); Mean Corpuscular HGB 28.4 pg (26.0-34.0); Mean Corpuscular HGB Conc 30.9 g/dL (31.5-36.5); Mean Corpuscular Volume 92 fL (80-100); Mean Platelet Volume 9.9 fL (9.1-12.4); Platelet Count 150 K/mm3 (150-400); RDW Coefficient Variation 13.7 % (11.7-14.2); Red Blood Cell Count 4.86 M/mm3 (4.30-5.90); White Blood Cell Count 8.51 K/mm3 (4.00-11.30)
[2018-12-06 04:15] LABS: Alanine Aminotransfer (ALT/SGP 18 U/L (12-78); Albumin, Blood 3.2 g/dL (3.4-5.0); Albumin/Globulin Ratio 0.8 (0.8-1.8); Alk Phos 112 U/L (50-136); Anion Gap 3 mmol/L (6-16); Aspartate Aminotrans (AST/SGOT 10 U/L (12-37); Bilirubin, Total 0.5 mg/dL (0.1-1.0); Blood Urea Nitrogen 19 mg/dL (8-24); CO2, Blood 39 mmol/L (21-32); Calcium, Blood 8.8 mg/dL (8.5-10.1); Chloride, Blood 94 mmol/L (98-108); Creatinine, Blood 0.45 mg/dL (0.60-1.20); Glomerular Filtration Rate >60 (60-); Glucose, Blood 249 mg/dL (70-99); Potassium, Blood 4.3 mmol/L (3.5-5.5); Sodium, Blood 136 mmol/L (136-145); Total Protein, Blood 7.2 g/dL (6.4-8.2)
--- NOTE | 2018-12-06 05:20 | NUR ---
SHIFT SUMMARY PT HAS REMAINED AOX4 THROUGHOUT SHIFT WITH OCCASIONAL DISORIENTATION UPON WAKING. VSS. PLEASANT AND COOPERATIVE WITH CARE. PT HAS RESTED THROUGHOUT MUCH OF THE NIGHT WITH BIPAP IN PLACE WITH SETTINGS OF 12/6 45% FIO2. O2 SATS HAVE REMAINED >90% ON 4-5L VIA NASAL CANNULA OR ON BIPAP. PT REMAINS INCONTINENT OF URINE AND STOOL; ENCOURAGED TO CALL FOR RESTROOM ASSISTANCE DUE TO EXCORIATED SKIN IN PERINEAL AREA AND PANNUS; NYSTATIN APPLIED. PT TOLERATED PO MEDS IN APPLESAUCE WELL, BUT DID HAVE SLIGHT COUGH SHORTLY AFTER SWALLOWING. PT ENCOURAGED TO USE CHIN TUCK METHOD WHEN SWALLOWING MEDICATIONS. WILL CONTINUE TO KEEP NPO OTHERWISE. NO OTHER CHANGES NOTED FROM INITIAL ASSESSMENT. WILL CONTINUE TO MONITOR AND REPORT TO ONCOMING SHIFT RN. BED IN LOW POSITION,CALL LIGHT IN REACH. BED ALARM SET FOR SAFETY.
--- NOTE | 2018-12-06 08:48 | NUR ---
AM NOTE. ASSUMED CARE OF PT APROX 0700. PT IS A&Ox4 AND ON BEDREST, PT WAS ADMITTED FOR RESP FAILURE AND ON THE BIPAP. PT REQUESTED TO HAVE THE BIPAP REMOVED AND PLACED ON 5 L NC WITH O2 SATS AT 90-93%, PT'S WORK OF BREATHING INRECREASED QUICKLY. PT WAS ENCOURAGED TO GO BACK ON THE BIPAP BUT REFUSED. PT REQUESTED A DIET ORDER, PROVIDER WAS AT THE BEDSIDE, EDUCATED PT ON EATING WHILE IN RESPIRATORY DISTRESS AND POSSIBLE ASPIRATION. PT STATED HIS UNDERSTANDING. SHORTLY AFTER THE PROVIDER LEFT THE PT'S SON ARRIVED WITH FAST FOOD AND GAVE IT TO THE PT. A BAJWA/COUDE WAS PLACED D/T PROVIDER WANTING STRICT I&O, PT WAS ALSO REFUSING TO TAKE THE DIURETIC THAT WAS ORDERED BECAUSE HE WAS "TIRED OF PEEING ALL THE TIME." PT EDUCATED ON CHF, FLUIDOVERLOAD AND DIURETICS. PT STATED HIS UNDERSTANDING. PT IS IN [place] IN THE 80'S-90'S. PT HAS TRACE EDEMA TO HIS RLE AND GENERALIZED EDEMA EVERYWEHRE ELSE. L/S COARSE WHEEZES T/O AND DIM T/O. REDNESS TO THE PT'S PANNUS AND GROIN AREA SEEMS SLIGHTLY IMPROVED FROM YESTERDAY AT ADMIT. WILL CONTINUE TO MONITOR.
--- NOTE | 2018-12-06 16:33 | NUR ---
PT UPDATE... AT APROX 1345 PT STARTED HAVING RESPIRTORY DISTRESS, PT WAS NOT ON THE BIPAP AT THIS TIME PT WAS ON 6L NC, PT HAD BEEN APPROACHED MULTIPLE TIMES ABOUT PUTTING THE BIPAP BACK ON FOR APROX 1 HOUR PRIOR TO THIS EVENT. PT REFUSED EACH TIME. THIS RN ENTERED THE ROOM AND NOTICED THE PT'S O2 SATS WERE AT 85% WITH 6L NC, PT WAS TALKING ON THE PHONE. PT WAS WORKING VERY HARD TO BREATH USING ACCESSORY MUSCLES. PT WAS ASKED TO HANG UP THE PHONE AND GET ON THE BIPAP, AT THIS TIME PT'S O2 SAT WAS AT 80%. PT WAS PLACED ON THE BIPAP, PT WAS WRITHING ON THE BED, YELLING THAT HE WAS HAVING 9/10 ABD PAIN AND "I CAN'T BREATH." PT'S AGITATION STARTED TO INCREASE, PT WAS PULLING ON THE BIPAP MASK TRYING TO REMOVE IT, WHILE STATING HE COULD NOT BREATH. AT THIS TIME PT'S EYES WERE NOT FOCUSING, HIS ARMS/HANDS WERE FLAPPING AND VERY SHAKY. PROVIDER WAS CALLED AND ORDERS OBTAINED FOR IV ATIVAN AND FENTANYL. PT WAS GIVEN THESE MEDICATIONS, WHICH HELPED SLIGHTLY, FOR THE NEXT HOUR AND A HALF THE PT WAS WRITHING AROUND THE BED, TRYING TO PULL THE BIPAP MASK OFF. PT WAS A&Ox1 AND REACHING OUT INTO THIN AIR, WHEN ASKED WHAT HE WAS DOING THE PT STATED "I AM PICKING APPLES IN THE ORCHARD." PT'S L/S AT THIS TIME HAD INCREASED COARSNESS/CRACKLES, PER RT. PROVIDER WAS CALLED AND ORDERS OBTAINED FOR ONE TIME DOSE OF LASIX 60MG. THIS WAS GIVEN TO THE PT. DURING THIS EPISODE THE PT STATED THAT HE WAS "FREEZING" PT WAS PALE AND DIAPHORETIC DURING THIS WELL. THIS RN STAYED WITH THE PT TO ENSURE THE PT DID NOT REMOVE THE BIPAP MASK AND DID NOT FALL OUT OF BED. DURING THIS TIME THE PT STATED: " I WANT TO GO HOME" WHENT HE PT WAS INFORMED THAT HE WAS IN NO CONDITION TO GO HOME RIGHT NOW THE PT STATED "I AM DONE, IF I AM GOING TO I WANT TO AT HOME I DON'T WANT TO DO THIS ANYMORE." AT THIS TIME THE PT BEGAN TO CALL OUT NAMES AND WAS HALLUCINATING. AT APROX 1600 THE PT BEGAN TO CALM DOWN AND REST, PT WAS NOT PULLING ON THE BIPAP MASK ANY MORE AND WAS RELAXING. CURRENTLY THE PT IS SLEEPING WITH THE BIPAP MASK ON. WILL CONTINUE TO MONITOR.
--- NOTE | 2018-12-06 18:32 | NUR ---
SHIFT SUMMARY. NO ACUTE CHANGES NOTED SINCE LAST NOTE. PT HAS BEEN SLEEPING SINCE THE EPISODE OF RESPIRATORY DISTRESS. PT'S BAJWA IS PATENT AND DRAINING PEYTON URINE TO GRAVITY. PT HAS BIPAP ON WITH SETTINGS OF 14/8 AND 45% FIO2. PT'S VS STABLE AT THIS TIME. WILL CONTINUE TO MONITOR UNTIL REPORT IS GIVEN TO ONCOMING RN.
--- NOTE | 2018-12-07 06:14 | NUR ---
SHIFT SUMMARY PT HAS REMAINED AOX4 THROUGHOUT SHIFT. VSS. MOSTLY COOPERATIVE WITH CARE. PT HAS WORN BIPAP THROUGHOUT MAJORITY OF THE NIGHT WHILE SLEEPING AND TOLERATED IT WELL. PT WOKE ONCE AND REQUESTED BREAK FROM BIPAP IN ORDER TO HAVE DRINK AND SNACK. BREATHING IS ALMOST INSTANTLY MORE LABORED WHEN BIPAP REMOVED WITH USE OF ACCESSORY MUSCLES, THOUGH O2 SATS REMAINED >90% ON 5L VIA NASAL CANNULA WHEN OFF BIPAP. PT TOLERATED SOFT FOOD WELL WITHOUT COUGHING. BIPAP OFF PT FOR APPROXIMATELY 30 MINUTES AND WAS COMPLIANT WHEN IT WAS SUGGESTED TO PUT IT BACK ON. LUNG SOUNDS REMAIN UNCHANGED FROM INITIAL ASSESSMENT. BAJWA REMAINS PATENT AND DRAINING TO GRAVITY NO OTHER CHANGES FROM INITIAL ASSESSMENT. WILL CONTINUE TO MONITOR AND REPORT TO ONCOMING SHIFT RN. BED IN LOW POSITION, CALL LIGHT IN REACH. BED ALARM SET FOR SAFETY.
--- NOTE | 2018-12-07 09:17 | NUR ---
PT'S FAMILY HAD BROUGHT HOME INHALER IN FOR PT, MEDICATION IS NOT ORDERED FOR ADMIT USE IS PLACED PN BEDSIDE TABLE PRIOR TO LEAVING PT'S ROOM, DURING MEDCIATION ADMIN IT IS NOTED THAT PT'S HOME MEDICATIONS ARE NO LONGER ON BEDSIDE TABLE, PT STS HE IS NOT SURE IF THEY HAD TAKEN THEM HOME. MED IS NOT ON FLOOR
--- NOTE | 2018-12-07 10:19 | NUR ---
ARRANGING HOME O2 FROM [facility] PT DOES NOT HAVE O2 TANKS AT HOME
[2018-12-07] MEDS ORDERED: VISBIOME 112.51 EACH PO (11:31)
[2018-12-07] MEDS ORDERED: LEVFLO500 PO (11:32)
[2018-12-07] MEDS ORDERED: PRED20 PO (11:33)
--- NOTE | 2018-12-07 14:55 | NUR ---
DISCHARGE NOTE PT STABLE FOR DISCHARGE. IV REMOVED. BAJWA REMOVED. DISCHARGE INSTRUCTIONS AND DISCHARGE MEDICATIONS REVIEWED WITH PT. PT VERBALIZES UNDERSTANDING AND DENIES QUESTIONS. PT DISCHARGED VIA PT's OWN WHEELCHAIR AND ON OXYGEN AT 5L/MIN VIA OR WITH BELONGINGS. DISCHARGED VIA TRANSPORT COMPANY.
--- NOTE | 2018-12-07 15:08 | NUR ---
Pt. is doing much better and may go home today offered prayers.
== END 2018-12-07 15:03 | disposition home or self-care (01) | DRG 291 ==
LOC: ER 08:59 → PCU 12:02 → ERHOLD 12:02 → PCU 17:42
PROVIDERS: Emergency Medicine; ADMIT Internal Medicine
PROC: 5A09357 Assistance with Respiratory Ventilation, Less than 24 Consecutive Hours, Continuous Positive Airway Pressure (ICD-10-PCS; principal; 2018-12-05)
DX: I11.0 Hypertensive heart disease with heart failure (principal); J96.21 Acute and chronic respiratory failure with hypoxia; J96.22 Acute and chronic respiratory failure with hypercapnia; J44.1 Chronic obstructive pulmonary disease with (acute) exacerbation; N39.0 Urinary tract infection, site not specified; Z68.42 Body mass index [BMI] 45.0-49.9, adult; I50.33 Acute on chronic diastolic (congestive) heart failure; E66.01 Morbid (severe) obesity due to excess calories; G47.33 Obstructive sleep apnea (adult) (pediatric); E11.9 Type 2 diabetes mellitus without complications; B96.4 Proteus (mirabilis) (morganii) as the cause of diseases classified elsewhere; E11.65 Type 2 diabetes mellitus with hyperglycemia; D64.9 Anemia, unspecified; F17.200 Nicotine dependence, unspecified, uncomplicated; Z89.612 Acquired absence of left leg above knee; Z88.5 Allergy status to narcotic agent; Z79.84 Long term (current) use of oral hypoglycemic drugs; Z79.82 Long term (current) use of aspirin; Z79.51 Long term (current) use of inhaled steroids; Z79.899 Other long term (current) drug therapy
CPT/HCPCS: 36415; 36600; 71045; 80053; 81001; 82550; 82803; 82947; 83880; 84484; 85025; 85027; 87077; 87081; 87086; 87186; 93005; 93010; 93306; 94640; 94660; 94762; 96372-59; 96374; 96375; 99285-25; A9270-GY; J0696; J1650; J1940; J1956; J2060; J2930; J3010

== ENCOUNTER 2019-07-27 17:50 | Inpatient (IN) | payer OTHER, MEDICARE ==
[~2019-07-27] VITALS: Ht 177.8 cm; Wt 130.1 kg
[~2019-07-27 17:50] MED LIST changes: +ALBU3IS INH; +ALBU90OI INH; +ATOR80 PO; +Aspirin EC81 MG PO; -HYDR1TAB94; +HYDR1TAB94 PO; +PRED20 PO; +VISBIOME 112.51 EACH PO; -VITAMIN D32000 UNI2 PO; +Vitamin D2000 UNIT PO
[2019-07-27 18:25] LABS: BASOPHILS ABSOLUTE AUTO 0.03 K/mm3 (0.00-0.23); BASOPHILS PERCENT AUTO 0 % (0-2); EOSINOPHILS ABSOLUTE AUTO 0.05 K/mm3 (0.00-0.68); EOSINOPHILS PERCENT AUTO 1 % (0-6); Hematocrit 36.7 % (37.0-53.0); Hemoglobin 10.3 g/dL (13.5-17.5); IMMATURE GRAN ABSOLUTE AUTO 0.03 K/mm3 (0.00-0.10); IMMATURE GRAN PERCENT AUTO 0 % (0-1); LYMPHOCYTES ABSOLUTE AUTO 0.53 K/mm3 (0.84-5.20); LYMPHOCYTES PERCENT AUTO 5 % (21-46); MONOCYTES ABSOLUTE AUTO 0.79 K/mm3 (0.16-1.47); MONOCYTES PERCENT AUTO 8 % (4-13); Mean Corpuscular HGB Conc 28.1 g/dL (31.5-36.5); Mean Corpuscular Volume 96 fL (80-100); Mean Platelet Volume 9.5 fL (9.1-12.4); NEUTROPHILS ABSOLUTE AUTO 8.52 K/mm3 (1.96-9.15); NEUTROPHILS PERCENT AUTO 86 % (41-73); Platelet Count 261 K/mm3 (150-400); Red Blood Cell Count 3.82 M/mm3 (4.30-5.90); White Blood Cell Count 9.95 K/mm3 (4.00-11.30)
[2019-07-27 18:40] LABS: PCO2 Arterial 83.9 mmHg (35-45); PO2 Arterial 70.4 mmHg (80-100); pH Blood Arterial 7.37 (7.35-7.45)
[2019-07-27 18:43] LABS: Alanine Aminotransfer (ALT/SGP 17 U/L (12-78); Albumin, Blood 2.5 g/dL (3.4-5.0); Albumin/Globulin Ratio 0.5 (0.8-1.8); Alk Phos 115 U/L (50-136); Aspartate Aminotrans (AST/SGOT 11 U/L (12-37); Bilirubin, Total 0.7 mg/dL (0.1-1.0); Blood Urea Nitrogen 15 mg/dL (8-24); Bun/Creatinine Ratio 30.7 (12.0-20.0); Calcium, Blood 8.8 mg/dL (8.5-10.1); Chloride, Blood 89 mmol/L (98-108); Creatinine, Blood 0.49 mg/dL (0.60-1.20); Glomerular Filtration Rate >60 (60-); Glucose, Blood 235 mg/dL (70-99); Magnesium, Blood 1.9 mg/dL (1.6-2.4); Potassium, Blood 4.6 mmol/L (3.5-5.5); Sodium, Blood 136 mmol/L (136-145); Total Protein, Blood 7.5 g/dL (6.4-8.2)
[2019-07-27 18:47] LABS: Anion Gap Unable to Calculate mmol/L (6-16)
[2019-07-27] MEDS ORDERED: BASAGLAR K100 UNIT/1 (18:49)
[2019-07-27 18:50] LABS: CO2, Blood >45 mmol/L (21-32)
[2019-07-27] MEDS ORDERED: Cymbalta30 MG PO (18:51)
[2019-07-27] MEDS ORDERED: FUROSEMIDE40 MG PO (18:51)
[2019-07-27 21:56] LABS: Adenovirus Not Detected (NOT DETECT); Coronavirus 229E Not Detected (NOT DETECT); Coronavirus HKU1 Not Detected (NOT DETECT); Coronavirus NL63 Not Detected (NOT DETECT); Coronavirus OC43 Not Detected (NOT DETECT); Human Metapneumovirus Not Detected (NOT DETECT); Human Rhinovirus/Enterovirus Not Detected (NOT DETECT)
[2019-07-27 21:57] LABS: Bordetella pertussis Not Detected (NOT DETECT); Chlamydophila pneumoniae Not Detected (NOT DETECT); Influenza A/2009-H1 Not Detected (NOT DETECT); Influenza A/H1 Not Detected (NOT DETECT); Influenza A/H3 Not Detected (NOT DETECT); Influenza B Not Detected (NOT DETECT); Mycoplasma pneumoniae Not Detected (NOT DETECT); Parainfluenza Virus 1 Not Detected (NOT DETECT); Parainfluenza Virus 2 Not Detected (NOT DETECT); Parainfluenza Virus 3 Not Detected (NOT DETECT); Parainfluenza Virus 4 Not Detected (NOT DETECT); Respiratory Syncytial Virus Not Detected (NOT DETECT)
--- NOTE | 2019-07-28 02:00 | NUR ---
PT ADMITTED TO ROOM ICU 8 FROM ED. REPORT RECEIVED. PT ARRIVES TO ROOM AT 2340 AND IS SLIDE TRANSFERRED TO BED FROM [facility]. PT NOTED TO BE SOMEWHAT AGITATED WITH MOVEMENT. PT SOMEWHAT UNKEMPT, AND ODEPHOROUS. DOMINGUEZ COLORED SECRETIONS FROM ETT SUCTIONING. AFLUTTER PER CARDIAC MONITORING. WILL REVIEW CHART AND PLAN OF CARE.
[2019-07-28 03:25] LABS: BASOPHILS ABSOLUTE AUTO 0.01 K/mm3 (0.00-0.23); BASOPHILS PERCENT AUTO 0 % (0-2); EOSINOPHILS ABSOLUTE AUTO 0.01 K/mm3 (0.00-0.68); EOSINOPHILS PERCENT AUTO 0 % (0-6); Hematocrit 32.9 % (37.0-53.0); Hemoglobin 9.3 g/dL (13.5-17.5); IMMATURE GRAN ABSOLUTE AUTO 0.05 K/mm3 (0.00-0.10); IMMATURE GRAN PERCENT AUTO 1 % (0-1); LYMPHOCYTES ABSOLUTE AUTO 0.26 K/mm3 (0.84-5.20); LYMPHOCYTES PERCENT AUTO 3 % (21-46); MONOCYTES ABSOLUTE AUTO 0.23 K/mm3 (0.16-1.47); MONOCYTES PERCENT AUTO 2 % (4-13); Mean Corpuscular HGB 26.3 pg (26.0-34.0); Mean Corpuscular HGB Conc 28.3 g/dL (31.5-36.5); Mean Platelet Volume 9.5 fL (9.1-12.4); NEUTROPHILS ABSOLUTE AUTO 8.94 K/mm3 (1.96-9.15); NEUTROPHILS PERCENT AUTO 94 % (41-73); Platelet Count 232 K/mm3 (150-400); RDW Coefficient Variation 15.9 % (11.7-14.2); RDW Standard Deviation 54.2 fL (35.1-46.3); Red Blood Cell Count 3.53 M/mm3 (4.30-5.90)
[2019-07-28 03:33] LABS: Mean Corpuscular Volume 93 fL (80-100)
[2019-07-28 03:41] LABS: Anion Gap 4 mmol/L (6-16); Blood Urea Nitrogen 18 mg/dL (8-24); Bun/Creatinine Ratio 39.9 (12.0-20.0); CO2, Blood 41 mmol/L (21-32); Calcium, Blood 8.4 mg/dL (8.5-10.1); Chloride, Blood 90 mmol/L (98-108); Creatinine, Blood 0.45 mg/dL (0.60-1.20); Glomerular Filtration Rate >60 (60-); Glucose, Blood 339 mg/dL (70-99); Potassium, Blood 4.6 mmol/L (3.5-5.5); Sodium, Blood 135 mmol/L (136-145)
--- NOTE | 2019-07-28 04:00 | NUR ---
FULL BEDBATH DONE. NO MAGGOTS NOTED. BITS OF FACIAL OR TOILET TISSUE NOTED. LIFT SHEET PLACED UNDER PT TO PROVIDE FOR EASE OF TURNING PT. SEE WOUND PICS IN CHART FOR DETAILS OF ALL WOUNDS FOUND.
--- NOTE | 2019-07-28 06:04 | NUR ---
PT CONTINUES ON VENT AC 16, Tv 500, FIO2 60, PEEP 5. PT TOLERATES THIS ON PROPOFOL AT 65 MCG/KG. SECRETIONS PER ETT SUCTIONING HAVE DECREASED. DURING TURNS IS SOMEWHAT RESISTANT. DOES MOVE EXTREMITIES EVEN WITH PROPOFOL. FULL BED BATH DONE WHICH FAILED TO FIND ANY SIGNS OF MAGGOTS. OF NOTE: WHAT WAS FOUND IS SMALL FRAGMENTS OF TISSUE THAT PT POSSIBLY HAD PLACED IN HIS FOLDS GROIN, AND ABDOMINAL FOLDS. POWDER APPLIED TO FOLDS AFTER BEDBATH COMPLETED. PILLOW CASES ALSO PLACED IN ANY FOLD THAT HAD ESCORIATION OR YEAST LIKE RASHING. SPOKE WITH DR BEAR PER PHONECALL AND GAVE UPDATE ON NO FINDINGS OF MAGGOTS WELL GLUTEAL AREA WITH ESCORIATION. ORDER RECEIVED FOR NYSTATIN PRN. WILL CONTINUE TO MONITOR PT, AND WILL REPORT OFF TO ONCOMING RN.
[2019-07-28 13:53] LABS: Free Thyroxine 1.34 ng/dL (0.70-1.60)
[2019-07-28 13:55] LABS: Thyroid Stimulating Hormone 0.277 uIU/mL (0.360-4.800); Triiodothyronine, Free 1.55 pg/mL (2.18-3.98)
--- NOTE | 2019-07-28 15:12 | NUR ---
Echocardiogram completed.
--- NOTE | 2019-07-28 19:00 | NUR ---
ASSUMED CARE ASSUMED CARE OF PATIENT. REMAINS INTUBATED- AC 16, TV 500, PEEP 7, FIO2 50%. RR 20s. SEDATED WITH PROPOFOL @ 50MCG/KG/MIN. MOVES EXTREMITIES WEAKLY AND SPONTANEOUSLY, BUT NOT FOLLOWING COMMANDS. BILATERAL SOFT WRIST RESTRAINTS IN PLACE TO PREVENT SELF-EXTUBATION. MONITOR SHOWS AFLUTTER, RATE 40s-50s. BP STABLE AT THIS TIME. OG TO LIS WITH SMALL AMOUNT OF LIQUID BROWN DRAINAGE. BAJWA PATENT AND DRAINING CLOUDY YELLOW URINE. LEFT AKA NOTED. MULTIPLE SKIN ISSUES NOTED. REMAINS IN ISOLATION TO R/O COVID. SEE SHIFT ASSESSMENT FOR FULL ASSESSMENT.
--- NOTE | 2019-07-28 20:05 | NUR ---
SEDATION/CALL TO MD DR. CUEVAS NOTIFIED OF CONTINUED NEED FOR HIGHER DOSE PROPOFOL AND CONTINUED BRADYCARDIA, RATE 40s. NEW ORDER RECEIVED FOR ATIVAN IV. WILL ATTEMPT TO TITRATE PROPOFOL DOWN POSSIBLE.
[2019-07-28 21:39] LABS: Source, Urine Catheter
[2019-07-28 21:42] LABS: Bilirubin, Urine Neg (Neg); Blood, Urine 5+ (Neg); Glucose Qualitative, Urine Neg (Neg); Ketones, Urine Neg (Neg); Leukocyte Esterase, Urine 3+ (Neg); Nitrite, Urine Neg (Neg); Protein, Urine 2+ (Neg); Specific Gravity, Urine 1.015 (1.003-1.022); Urobilinogen, Urine 2+ (Normal)
[2019-07-28 22:00] LABS: Appearance, Urine Cloudy (Clear); Color, Urine Yellow (P-Yellow)
[2019-07-28 22:09] LABS: Red Blood Cells, Urine 25-50 /hpf (0-2); Squamous Epithelial Cells Rare /hpf (Few); White Blood Cells, Urine 50-100 /hpf (0-5)
[2019-07-28 22:10] LABS: Bacteria Few /hpf; Transitional Epithelial Cells Few /hpf (0-Rare)
--- NOTE | 2019-07-28 23:20 | NUR ---
HR/BP DR. CUEVAS NOTIFIED OF CONTINUED HR 35-45 AND HYPOPTENSION WITH BP 80s/30s. NEW ORDER RECEIVED FOR EPINEPHRINE GTT TO START AT 7MCG/MIN PER MD.
[2019-07-29 03:46] LABS: Hematocrit 36.9 % (37.0-53.0); Hemoglobin 10.6 g/dL (13.5-17.5); Mean Corpuscular HGB 26.4 pg (26.0-34.0); Mean Corpuscular HGB Conc 28.7 g/dL (31.5-36.5); Mean Corpuscular Volume 92 fL (80-100); Mean Platelet Volume 9.6 fL (9.1-12.4); Platelet Count 327 K/mm3 (150-400); RDW Coefficient Variation 16.1 % (11.7-14.2); RDW Standard Deviation 54.8 fL (35.1-46.3); Red Blood Cell Count 4.02 M/mm3 (4.30-5.90); White Blood Cell Count 11.73 K/mm3 (4.00-11.30)
[2019-07-29 04:03] LABS: Anion Gap 4 mmol/L (6-16); Blood Urea Nitrogen 22 mg/dL (8-24); Bun/Creatinine Ratio 46.5 (12.0-20.0); CO2, Blood 43 mmol/L (21-32); Calcium, Blood 8.9 mg/dL (8.5-10.1); Chloride, Blood 91 mmol/L (98-108); Creatinine, Blood 0.47 mg/dL (0.60-1.20); Glomerular Filtration Rate >60 (60-); Glucose, Blood 221 mg/dL (70-99); Phosphorus, Blood 2.4 mg/dL (2.5-4.9); Potassium, Blood 3.6 mmol/L (3.5-5.5); Sodium, Blood 138 mmol/L (136-145)
--- NOTE | 2019-07-29 06:23 | NUR ---
SHIFT SUMMARY REMAINS INTUBATED- AC 16, TV 500, PEEP 7, FIO2 BETWEEN 50-60%. FIO2 NOW AT 60%. RR 16-20s. SEDATED WITH PROPOFOL BETWEEN 35-50MCG/KG/MIN- NOW AT 40MCG/KG/MIN. ALSO MEDICATED WITH ATIVAN 2MG IV X 1 FOR SEDATION. NORCO GIVEN X 1 FOR PAIN. BILATERAL SOFT WRIST RESTRAINTS REMAIN IN PLACE TO PREVENT SELF-EXTUBATION. PT REACHES HANDS UP TOWARDS ETT WHEN RESTRAINTS OFF. MOVES ALL EXTREMITIES. NOT FOLLOWING ANY COMMANDS. MONITOR SHOWS AFLUTTER, RATE NOW 60-70s. BP STABLE. EPINEPHRINE STARTED DURING SHIFT AND INFUSED BETWEEN 3-7MCG/MIN. NOW INFUSING @ 3MCG/MIN. OG CLAMPED. BAJWA PATENT AND DRAINING CLOUDY YELLOW URINE. INCONTINENT OF EXTRA LARGE STOOL X 1. UPDATE GIVEN TO DAUGHTER KEN THIS AM. WILL REPORT TO DAY SHIFT RN WHEN AVAILABLE.
--- NOTE | 2019-07-29 08:44 | NUR ---
PT SEDATED ON PROPOFOL AT 40MCG FOR MECH VENT. PT ON EPI GTT AT 3MCG FOR HYPOTENSION/BRADYCARDIA. PT IN AFLUTTER W RATE 60-80'S. BP W MAP>65. PT GRIMACES, STACKS BREATHS, EXCESSIVELY GAG'S AND COUGHS WITH MINIMAL STIMULATION. ATIVAN 1MG IVP GIVEN . PROP DECREASED TO 35MCG, EPI DECREASED 2MCG. PT HAS COPIOUS AMTS OF THICK SPUTUM. PEEP AT 7, FIO2 AT 60%. SATS 97%, WILL TITRATE FIO2 DOWN. PT MORBIDLY OBESE W EXCORITATED SKIN T/O. BLOOD SUGARS TRENDING UP EPI GTT IS IN D5. WILL NOTIFY
[2019-07-29 09:00] LABS: Vancomycin, Trough 9.3 ug/mL (5.0-10.0)
[2019-07-29 11:26] LABS: Base Excess Venous 24.5 mmol/L; Bicarbonate Venous 45.3 mmol/L (24.0-30.0); PCO2 Venous 66.4 mmHg (38-42); PO2 Venous 37.7 mmHg (38-42); pH Blood Venous 7.47 (7.34-7.37)
--- NOTE | 2019-07-29 12:58 | NUR ---
PICC PLACED TO NERIS W/O DIFFICULTY. PRECEDEX STARTED AT 0.2MCG AND TITRATED UP TO 0.6MCG OVER 2 HRS. PROPOFOL DECREASED TO 20MCG, WILL ATTEMPT TO WEAN PROPOFOL OFF PER DR HIGH. FIO2 TITRATED DOWN TO 45% W GOAL SATS 88-93% PER DR HIGH. RESP RATE DECREASED ON VENT TO [address] HIGH. SLIDING SCALE INCREASED TO HIGH. PT AROUSES MORE EASILY, DOES NOT FOLLOW COMMANDS, DOES NOT OPEN EYES, BUT IS CALM AND TOLERATING VENT. COPIOUS AMT OF THIN WHITE SECRETIONS REMAIN UNCHANGED. LARGE ROUND WOUND TO R [place] FROM BLISTER CLEANED, PICTURE TAKEN, DRSG PLACED. PT HAS SEVERAL OLDER OPEN WOUNDS TO BUTTOCKS, NEW PICTURES TAKEN FOR IMPROVED CLARITY. MEPILEX PLACED. TUBE FEEDING TO BE STARTED. EPI TITRATED BACK TO 3MCG HR DECREASED INTO 50'S WITH INCREASE OF PRECEDEX. ORDERS TO TITRATE EPI TO COMPENSATE FOR PRECEDEX GIVEN BY DR HIGH.
--- NOTE | 2019-07-29 17:04 | NUR ---
SHIFT SUMMERY PRECEDEX GTT AT 0.7MCG, PROPOFOL TITRATED OFF. EPI AT 2MCG TO KEEP HEART RATE >50. HR BETWEEN 50-60'S, BP STABLE. WILL TITRATE PRECEDEX DOWN TOLERATED. PT MOVES SPONT, DOES NOT OPEN EYES, BUT ATTEMPTS TO VOICE, DOES NOT FOLLOW DIRECTIONS. SATS 88-92% ON 50% FIO2. RESP REMIAN AT 14, PT'S RATE 16-18. LUNGS CLEAR, OCC COARSE. COPIOUS THIN WHITE SECRETIONS CONTINUE FROM ETT SX. VITAL PROTEIN TF STARTED AT 15CC/HR, WHICH IS THE GOAL RATE. PT HAS HAD >3000 U/O W LASIX. PT'S DAUGHTER GIVEN UP DATE VIA PHONE.
--- NOTE | 2019-07-29 18:21 | NUR ---
PRECEDEX TITRATED DOWN TO 0.6MCG, EPI DECREASED TO 1MCG.
--- NOTE | 2019-07-29 19:00 | NUR ---
ASSUMED CARE ASSUMED CARE OF PATIENT. REMAINS INTUBATED- AC 14, TV 500, PEEP 7, FIO2 50%. RR 19. SEDATED WITH PRECEDEX @ 0.6MCG/KG/HR. MOVES ALL EXTTEMITIES SPONTANEOUSLY. NOT FOLLOWING ANY COMMANDS. DOES OPEN EYES TO NOXIOUS STIMULI. BILATERAL SOFT WRIST RESTRAINTS IN PLACE TO PREVENT SELF-EXTUBATION. MONITOR SHOWS AFLUTTER, RATE 50S-60s. BP STABLE. EPINEPHRINE CONTINUES AT 1MCG/MIN. OG WITH VITAL HIGH PROTEIN AT GOAL RATE OF 15CC/HR WITH 30CC H20 Q4H. BAJWA PATENT AND DRAINING CLOUDY YELLOW URINE. SEE SHIFT ASSESSMENT FOR FULL ASSESSMENT.
[2019-07-30 04:15] LABS: Anion Gap 5 mmol/L (6-16); Blood Urea Nitrogen 20 mg/dL (8-24); Bun/Creatinine Ratio 48.9 (12.0-20.0); CO2, Blood 43 mmol/L (21-32); Calcium, Blood 8.3 mg/dL (8.5-10.1); Chloride, Blood 92 mmol/L (98-108); Creatinine, Blood 0.41 mg/dL (0.60-1.20); Glomerular Filtration Rate >60 (60-); Glucose, Blood 235 mg/dL (70-99); Magnesium, Blood 1.9 mg/dL (1.6-2.4); Phosphorus, Blood 3.2 mg/dL (2.5-4.9); Potassium, Blood 3.2 mmol/L (3.5-5.5); Sodium, Blood 140 mmol/L (136-145)
--- NOTE | 2019-07-30 06:27 | NUR ---
SHIFT SUMMARY REMAINS INTUBATED- AC 14, TV 500, PEEP 7, FIO2 50%. RR 16-20s. SEDATED WITH PRECEDEX BETWEEN 0.5-0.6MCG/KG/HR- NOW AT 0.5MCG/KG/HR. NORCO GIVEN X 1 FOR PAIN. BILATERAL SOFT WRIST RESTRAINTS REMAIN IN PLACE TO PREVENT SELF-EXTUBATION. PT REACHES HANDS UP TOWARDS ETT WHEN RESTRAINTS OFF. MOVES ALL EXTREMITIES. NOT FOLLOWING ANY COMMANDS. OPENS EYES WITH NOXIOUS STIMULI. MONITOR SHOWS AFLUTTER, RATE 50s-70s. BP STABLE. EPINEPHRINE INFUSED BETWEEN 1-1.5MCG/MIN. NOW INFUSING @ 3MCG/MIN. OG WITH VITAL HIGH PROTEIN AT GOAL RATE OF 15CC/HR WITH 30CC H20 q4H. OG RESIDUAL BETWEEN 10-80cc. BAJWA PATENT AND DRAINING CLOUDY YELLOW URINE. INCONTINENT OF SMALL SMEAR OF DARK BROWN STOOL X 1. AM POTASSIUM LEVEL IS 3.2- IV KCL STARTED PER ELECTROLYTE PROTOCOL. 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 WILL REPORT TO DAY SHIFT RN WHEN AVAILABLE.
--- NOTE | 2019-07-30 08:53 | NUR ---
BEDSIDE REPORT TAKEN AT 0710. PT OPENS EYES TO VOICE AND TECHNICAL RESEARCH SCIENTIST HAND TO COMMAND. PT UNABLE TO NOD APPROPRIATELY TO QUESTIONS. EPI DECREASED FROM 1.5MCG TO 1MCG. HR IN 50-60'S, BP STABLE. FIO2 DECREASED TO 45%, PT MARLEY WELL W SATS 90-92%. PEEP REMIANS AT 7 AND MAY BE DECREASED TO [address] HIGH. PRECEDEX AT 0.5MCG. PROPOFOL HAS BEEN OFF SINCE YESTERDAY. PT CONT TO HAVE COPIOUS AMT'S OF THIN WHITE SECRETIONS FROM ETT.
--- NOTE | 2019-07-30 10:55 | NUR ---
DR HIGH IN TO SEE PT. FIO2 DECREASED TO 40, PEEP DECREASED TO 5. ATIVAN GIVEN FOR AGITATION. PT WILL REMIAN ON VENT TODAY D/T EXCESSIVE SECRETIONS. PT IS COVID NEG, MRSA POS. NEW TF ORDERS.
--- NOTE | 2019-07-30 12:00 | NUR ---
PT AWAKE, ANXIOUS, MILDLY AGITATED. NODS HEAD YES TO PAIN, AND YES TO FEELING ANXIOUS/AFRAID. RESP HIGH 30'S. ATIVAN 1MG IVP AND VICODIN 5MG DOWN OGT GIVEN FOR PAIN AND ANXIETY; THIS HAD A GOOD EFFECT. PRECEDEX LEFT AT 0.5MCG. NO OTHER CHANGES IN 1200 ASSESSMENT FROM AM ASSESS. PT'S DAUGHTER GIVEN UPDATE VIA PHONE
--- NOTE | 2019-07-30 12:30 | NUR ---
TUBE FEEDING CHANGED TO PIVOT 1.5 AT 20CC/HR. RESIDUAL 5CC.
--- NOTE | 2019-07-30 16:41 | NUR ---
UNNA BOOT REMOVED FROM RIGHT FOOT THAT WAS PLACED YESTERDAY BY MYSELF FOR DRY FLAKEY/PEELING SKIN AND SORES TO TOES. FOOT LOOKS MUCH IMPROVED. PRECEDEX REMIANS AT 0.5MCG, EPI AT 1MCG. NO OTHER CHANGES FROM PRIOR ASSESSMENT
--- NOTE | 2019-07-30 21:00 | NUR ---
ASSUMPTION OF CARE ASSUMED CARE OF PT @1900, PT INTUBATED AND SEDATED, VENT SET TO AC 14/500/5/50%, PRECEDEX INFUSING @ 0.5. MONITOR SHOWS AFLUTTER, HR 60'S, BP STABLE, EPI INFUSING @ 1mcg/min. EXTENSIVE REDNESS AND SOME EXCORIATION TO BREANNE AND ABD FOLDS, AREAS CLEANED, DRIED AND NYSTATIN POWDERED APPLIED, WOUND TO RIGHT [place] CLEANED AND NEW DRESSING PLACED. PT MOVING ALL EXTREMETIES, NOT FOLLOWING COMMANDS, OPENS EYES TO PRESSURE, GRIMACES WITH SOME NURSING CARE.
[2019-07-31 04:47] LABS: BASOPHILS ABSOLUTE AUTO 0.02 K/mm3 (0.00-0.23); BASOPHILS PERCENT AUTO 0 % (0-2); EOSINOPHILS ABSOLUTE AUTO 0.09 K/mm3 (0.00-0.68); EOSINOPHILS PERCENT AUTO 1 % (0-6); Hemoglobin 10.1 g/dL (13.5-17.5); IMMATURE GRAN ABSOLUTE AUTO 0.09 K/mm3 (0.00-0.10); IMMATURE GRAN PERCENT AUTO 1 % (0-1); LYMPHOCYTES ABSOLUTE AUTO 0.61 K/mm3 (0.84-5.20); LYMPHOCYTES PERCENT AUTO 8 % (21-46); MONOCYTES ABSOLUTE AUTO 0.71 K/mm3 (0.16-1.47); MONOCYTES PERCENT AUTO 9 % (4-13); Mean Corpuscular HGB 26.1 pg (26.0-34.0); Mean Corpuscular HGB Conc 28.9 g/dL (31.5-36.5); Mean Corpuscular Volume 90 fL (80-100); Mean Platelet Volume 9.6 fL (9.1-12.4); NEUTROPHILS ABSOLUTE AUTO 6.53 K/mm3 (1.96-9.15); NEUTROPHILS PERCENT AUTO 81 % (41-73); Platelet Count 261 K/mm3 (150-400); RDW Coefficient Variation 16.5 % (11.7-14.2); RDW Standard Deviation 54.6 fL (35.1-46.3); Red Blood Cell Count 3.87 M/mm3 (4.30-5.90); White Blood Cell Count 8.05 K/mm3 (4.00-11.30)
[2019-07-31 05:02] LABS: Anion Gap 2 mmol/L (6-16); Blood Urea Nitrogen 25 mg/dL (8-24); Bun/Creatinine Ratio 54.8 (12.0-20.0); CO2, Blood 41 mmol/L (21-32); Calcium, Blood 8.2 mg/dL (8.5-10.1); Chloride, Blood 96 mmol/L (98-108); Creatinine, Blood 0.46 mg/dL (0.60-1.20); Glomerular Filtration Rate >60 (60-); Glucose, Blood 253 mg/dL (70-99); Magnesium, Blood 1.9 mg/dL (1.6-2.4); Potassium, Blood 3.8 mmol/L (3.5-5.5); Sodium, Blood 139 mmol/L (136-145)
--- NOTE | 2019-07-31 06:17 | NUR ---
SHIFT SUMMARY PT REMAINS INUTBATED AND SEDATED, VENT SET TO AC 14/500/5/40%, MONITOR SHOWS AFLUTTER WITH HR 50'S-60'S, BP LOW BUT STABLE WITH MAPS>65, EPI ON SB SINCE 514. SEDATION VACATION AND SBT THIS AM, PT BECAME MORE ALERT WITH PRECEDEX @ 0.3, FOLLOWING SOME COMMANDS, PROFOUNDLY WEAK COMMUNITY ARTS OFFICER, BARELY ABLE TO LIFT HAND OFF OF BED, PT REPORTS DISCOMFORT WITH ETT, DENIES PAIN, TRIES TO MOUTH WORDS TO COMMUNICATE. RESPIRATORY RATE INCREASED TO 50'S DURING SBT. PT CONTINUES TO HAVE VERY LARGE AMOUNTS OF ORAL AND ETT SECRETIONS. TF INF @ GOAL RATE OF 40ml/hr, RESIDUALS 40-110, CBG'S 250-305. BAJWA IN PLACE WITH GOOD URINE OUTPUT. PRECEDEX CURRENTLY INFUSING @ 0.2, PT AROUSABLE BUT QUICKLY FALLS ASLEEP.
--- NOTE | 2019-07-31 06:29 | NUR ---
SHIFT SUMMARY PT SLEEPS ON AND OFF T/O SHIFT, USES CALL LIGHT APPROPRIATELY, REMAINS ORIENTED. PT REMAINS ON AIRVO, DECLINES BIPAP T/O SHIFT, OXYGEN NEEDS UNCHANGED WITH FIO2 50-70%, HOWEVER PT HAS EXTREME DYSPNEA WITH MINIMAL EXERTION (REPOSITIONS IN BED) REQUIRING BREIF INCREASE OF FIO2 UP TO 90% FOR RECOVERY, ALL OTHER VSS. PT REMAINS NPO AFTER MIDNIGHT. BAJWA IN PLACE, DECREASED URINE OUTPUT. PT HARO, REPOSITIONS SELF IN BED DESIRED.
--- NOTE | 2019-07-31 10:44 | NUR ---
CARE ASSUMED ASSESSMENT COMPLETED, PT SEDATED WITH PRECEDEX 0.2MCG, VENT SETTINGS AC 14, Vt 500, FIO2 40%, PEEP 5. PT'S RR 19, SPO2 88-93%. LS COARSE T/O WITH SOME WHEEZES, COPIOUS AMOUNTS OF THICK YELLOW SPUTUM FROM ETT. HR 60'S A FLUTTER, BP WNL. SKIN EXCORIATED IN FOLDS, NYSTATIN POWDER APPLIED. DRESSINGS TO COCCYX AND RLE CDI, WILL CHANGE LATER THIS SHIFT. PT REPOSITIONED, RLE ELEVATED, SWB IN PLACE. PT BECAME AGITATED AFTER CARES, MEDICATED WITH ATIVAN, PRECEDEX RATE INCREASED. WILL CONTINUE TO MONITOR.
[2019-07-31 11:44] LABS: Vancomycin, Trough 11.7 ug/mL (5.0-10.0)
--- NOTE | 2019-07-31 15:07 | NUR ---
UPDATE PT'S LUNGS CLEARING THIS AFTERNOON, NO COARSE LS OR WHEEZES NOTED. FIO2 REMAINS 45% WITH SPO2 LOW 90'S. SECRETIONS FROM ETT SLOWING. DRESSINGS TO RLE AND COCCYX CHANGED, SEE REASSESSMENT CHARTING. NYSTATIN APPLIED TO GROIN AND SKIN FOLDS. WOUNDS AND EXCORIATIONS IMPROVING BASED ON CHART PICTURES. HR 50'S, BP STABLE, EPINEPHERINE REMAINS OFF. PRECEDEX AT 0.3MCG.
--- NOTE | 2019-07-31 18:54 | NUR ---
SEDATION VACATION/END OF SHIFT SEDATION VACATION COMPLETED AT 1800, PRECEDEX OFF FOR ABOUT 1 HOUR, PT REMAINED CALM AND QUIET, TOLERATED VENT WITHOUT DIFFICULTY, VSS. PT ABLE TO FOLLOW SIMPLE COMMANDS AND TRACK, RR 18, VT'S 500'S. PT RESEDATED WITH PRECEDEX 0.3MCG FOR COMFORT. REPOSITIONED Q2H T/O SHIFT, RLE AND UE'S ELEVATED ON PILLOWS. PT'S LS HAVE CLEARED T/O DAY, SECRETIONS HAVE DECREASED. HR 50'S-60'S AT THIS TIME, BP WNL. REPORT TO ONCOMING SHIFT.
--- NOTE | 2019-07-31 19:10 | NUR ---
ASSUME CARE: REPORT RECIEVED FROM EDDI OFF GOING RN. VENT SETTING AC 14, TV 500, FIO2 45% PEEP 5, RATE 18, SPO2 93% LUNG SOUNDS DISTANT WITH FEW SCATTERED EXPIRATIORY WHEEZES IN THE BASES. MONITOR INTACT SHOWING A FLUTTER HEART RATE 50'S-60'S. AROUSES/ OPENS EYES TO VERBAL STIMULI. ABDOMEN SOFT WITH BOWEL SOUNDS FOUR QUADS. BAJWA PATENT DRAINING PEYTON URINE WITH SEDIMENT. DRESSING TO WOUNDS INTACT. NYSTATIN POWDER TO FOLDS . BREANNE CARE GIVEN. CONTINUE TO MONITOR AND REPORT CHANGE IN PATENT CONDITION.
[2019-08-01 04:20] LABS: BASOPHILS ABSOLUTE AUTO 0.02 K/mm3 (0.00-0.23); BASOPHILS PERCENT AUTO 0 % (0-2); EOSINOPHILS ABSOLUTE AUTO 0.19 K/mm3 (0.00-0.68); EOSINOPHILS PERCENT AUTO 3 % (0-6); Hemoglobin 8.9 g/dL (13.5-17.5); IMMATURE GRAN ABSOLUTE AUTO 0.08 K/mm3 (0.00-0.10); IMMATURE GRAN PERCENT AUTO 1 % (0-1); LYMPHOCYTES ABSOLUTE AUTO 0.64 K/mm3 (0.84-5.20); LYMPHOCYTES PERCENT AUTO 9 % (21-46); MONOCYTES ABSOLUTE AUTO 0.48 K/mm3 (0.16-1.47); MONOCYTES PERCENT AUTO 7 % (4-13); Mean Corpuscular HGB 26.5 pg (26.0-34.0); Mean Corpuscular HGB Conc 28.7 g/dL (31.5-36.5); Mean Corpuscular Volume 92 fL (80-100); Mean Platelet Volume 9.7 fL (9.1-12.4); NEUTROPHILS PERCENT AUTO 80 % (41-73); Platelet Count 199 K/mm3 (150-400); RDW Standard Deviation 54.4 fL (35.1-46.3); Red Blood Cell Count 3.36 M/mm3 (4.30-5.90); White Blood Cell Count 7.01 K/mm3 (4.00-11.30)
[2019-08-01 04:37] LABS: Alanine Aminotransfer (ALT/SGP 10 U/L (12-78); Albumin, Blood 1.5 g/dL (3.4-5.0); Albumin/Globulin Ratio 0.4 (0.8-1.8); Alk Phos 76 U/L (50-136); Anion Gap 3 mmol/L (6-16); Aspartate Aminotrans (AST/SGOT 7 U/L (12-37); Blood Urea Nitrogen 27 mg/dL (8-24); Bun/Creatinine Ratio 73.2 (12.0-20.0); CO2, Blood 35 mmol/L (21-32); Calcium, Blood 7.1 mg/dL (8.5-10.1); Chloride, Blood 103 mmol/L (98-108); Creatinine, Blood 0.37 mg/dL (0.60-1.20); Glomerular Filtration Rate >60 (60-); Glucose, Blood 225 mg/dL (70-99); Magnesium, Blood 1.8 mg/dL (1.6-2.4); Potassium, Blood 3.5 mmol/L (3.5-5.5); Sodium, Blood 141 mmol/L (136-145); Total Protein, Blood 5.5 g/dL (6.4-8.2)
[2019-08-01 05:24] LABS: PCO2 Arterial 60.7 mmHg (35-45); PO2 Arterial 61.3 mmHg (80-100); pH Blood Arterial 7.45 (7.35-7.45)
--- NOTE | 2019-08-01 06:55 | NUR ---
SHIFT SUMMARY: VENT SETTINGS REMAIN SAME AC 14, TV 500, FIO2 45% PEEP 5. RATE 18, SPO2 94% DID NOT PASS WEAN THIS AM SECONDARY TO INCREASED RESP RATE, AND DECREASED TV. MONITOR REMAINS INTACT SHOWING A FLUTTER HEART RATE 50'S-60'S. ABDOMEN SOFT WITH BOWEL SOUNDS FOUR QUADS. BAJWA PATENT DRAINING PEYTON URINE. DRESSINGS TO WOUNDS DRY/INTACT. EXTREMITIES ELEVATED ON PILLOWS SECONDARY TO GENERALIZED DEPENDENT EDEMA. CONTINUE TO MONITOR AND REPORT CHANGE IN PATIENT CONDITION. MEDICATED WITH ATIVAN FOR INCREASED AGITATION. AROUSES TO VERBAL STIMULI MAKES EYE CONTACT AND FOLLOWS SIMPLE REQUESTS.
--- NOTE | 2019-08-01 10:29 | NUR ---
SEDATION VACATION/WEAN PRECEDEX TURNED OFF AND PT WAS OPENING EYES SPONTANEOUSLY AND FOLLOWING COMMANDS AFTER ABOUT 20 MINUTES. RT NOTIFIED AND STARTED WEAN. PT DID NOT TOLERATE WEAN WELL WITH RR GOING UP TO THE HIGH 30S AND ONLY PULLING VOLUMES IN THE 200S WITH PS 12. PT SWITCHED BACK TO AC MODE AND SEDATION RESTARTED. DR. ZENDEJAS INFORMED OF PT'S FAILURE TO WEAN.
[2019-08-01 11:30] LABS: Vancomycin, Trough 17.8 ug/mL (5.0-10.0)
--- NOTE | 2019-08-01 11:50 | NUR ---
REASSESSMENT PT REMAINS SEDATED AND INTUBATED. PT WAS OPENING EYES SPONTANEOUSLY AND FOLLOWING COMMANDS WHEN HIS SEDATION IS OFF. HE DID NOT DO WELL ON HIS REPEAT WEAN WITH RR GOING UP AND NOT PULLING GOOD VOLUMES. AFLUTTER WITH RATE IN THE 50-60S, BP STABLE, SEE VITALS. LUNGS CLEAR. LARGE AMT OF THICK WHITE SECRETIONS AND ORAL SECRETIONS. TOLERATING TUBE FEED WITH LESS THAN 10ML RESIDUAL. SPOKE WITH PT'S SHEKHAR AND PROVIDED UPDATE. CONTINUING TO MONITOR.
--- NOTE | 2019-08-01 16:25 | NUR ---
SHIFT SUMMARY PT REMAINED INTUBATED AND SEDATED TODAY. HIS LUNGS THIS AFTERNOON HAD SOME SCATTERED WHEEZES THAT CLEARED WITH SUCTIONING. ONLY A MODERATE AMT OF SECRETIONS THIS AFTERNOON. NO INCREASE IN OXYGEN/VENT NEEDS THIS SHIFT. REMAINS IN AFIB WITH RATE IN THE 50S AND 60S, BP STABLE, SEE FLOWSHEET. TOLERATING TUBE FEED. URINE IS CL WITH SMALL AMT OF SEDIMENT. FAMILY WAS UPDATED. CONTINUING TO MONITOR.
--- NOTE | 2019-08-01 19:00 | NUR ---
ASSUMED CARE ASSUMED CARE OF PATIENT. REMAINS INTUBATED- AC 14, TV 500, PEEP 5, FIO2 50%. RR 20s. SEDATED WITH PRECEDEX @ 0.4MCG/KG/HR. OPENS EYES TO VERBAL STIMULI. BILATERAL SOFT WRIST RESTRAINTS IN PLACE TO PREVENT SELF-EXTUBATION. MONITOR SHOWS AFLUTTER, RATE 60s. BP STABLE. OG WITH PIVOT 1.5 AT GOAL RATE OF 45CC/HR. 30CC H20 FLUSH SCHEDULED EVERY 4H. BAJWA PATENT AND DRAINING DARK YELLOW URINE. L AKA NOTED. PICC LINE PATENT TO NERIS. REMAINS IN DROPLET/CONTACT ISOLATION FOR MRSA IN SPUTUM AND URINE. SEE SHIFT ASSESSMENT FOR FULL ASSESSMENT.
[2019-08-02 05:15] LABS: PCO2 Arterial 56.3 mmHg (35-45); PO2 Arterial 56.5 mmHg (80-100); pH Blood Arterial 7.47 (7.35-7.45)
[2019-08-02 05:49] LABS: BASOPHILS ABSOLUTE AUTO 0.03 K/mm3 (0.00-0.23); BASOPHILS PERCENT AUTO 0 % (0-2); EOSINOPHILS ABSOLUTE AUTO 0.14 K/mm3 (0.00-0.68); EOSINOPHILS PERCENT AUTO 2 % (0-6); Hematocrit 33.5 % (37.0-53.0); Hemoglobin 9.7 g/dL (13.5-17.5); IMMATURE GRAN ABSOLUTE AUTO 0.06 K/mm3 (0.00-0.10); IMMATURE GRAN PERCENT AUTO 1 % (0-1); LYMPHOCYTES ABSOLUTE AUTO 0.81 K/mm3 (0.84-5.20); LYMPHOCYTES PERCENT AUTO 11 % (21-46); MONOCYTES PERCENT AUTO 10 % (4-13); Mean Corpuscular HGB 26.6 pg (26.0-34.0); Mean Corpuscular Volume 92 fL (80-100); Mean Platelet Volume 10.4 fL (9.1-12.4); NEUTROPHILS ABSOLUTE AUTO 5.51 K/mm3 (1.96-9.15); NEUTROPHILS PERCENT AUTO 76 % (41-73); Platelet Count 225 K/mm3 (150-400); RDW Standard Deviation 53.7 fL (35.1-46.3); Red Blood Cell Count 3.64 M/mm3 (4.30-5.90); White Blood Cell Count 7.25 K/mm3 (4.00-11.30)
[2019-08-02 05:56] LABS: Anion Gap 2 mmol/L (6-16); Blood Urea Nitrogen 29 mg/dL (8-24); Bun/Creatinine Ratio 54.3 (12.0-20.0); CO2, Blood 37 mmol/L (21-32); Calcium, Blood 8.1 mg/dL (8.5-10.1); Chloride, Blood 100 mmol/L (98-108); Creatinine, Blood 0.53 mg/dL (0.60-1.20); Glomerular Filtration Rate >60 (60-); Glucose, Blood 283 mg/dL (70-99); Magnesium, Blood 2.3 mg/dL (1.6-2.4); Phosphorus, Blood 2.3 mg/dL (2.5-4.9); Potassium, Blood 4.4 mmol/L (3.5-5.5); Sodium, Blood 139 mmol/L (136-145)
--- NOTE | 2019-08-02 06:27 | NUR ---
SHIFT SUMMARY NO ACUTE CHANGES DURING NOC. REMAINS INTUBATED- AC 14, TV 500, PEEP 5, FIO2 55%. SEDATED WITH PRECEDEX @ 0.4MCG/KG/HR. SHORT SEDATION VACATION DONE- PT SQUEEZED HANDS TO COMMAND AND OPENED EYES. REACHED BILATERAL HANDS UP TO ETT WHEN RESTRAINTS OFF. SEDATION RESTARTED AFTER PATIENT STARTED COUGHING AND RESPIRATORY RATE INCREASED. BP STABLE T/O NOC. REMAINED IN AFLUTTER, RATE 50s-70s. TMAX 100.7F- MEDICATED WITH TYLENOL 650MG PT WITH TEMP DECREASING TO 99.6F. MEDICATED WITH NORCO X 1 DURING SHIFT FOR GRIMACING. OG WITH PIVOT 1.5 AT GOAL RATE OF 45CC/HR. OG RESIDUAL <10CC WITH EACH CHECK. BAJWA PATENT AND DRAINING YELLOW URINE. SEDIMENT NOTED IN URINE. NA PHOS IVPB ORDERED PER ELECTROLYTE REPLACEMENT PROTOCOL FOR PHOS LEVEL OF 2.3. WILL REPORT TO DAY SHIFT RN WHEN AVAILABLE.
--- NOTE | 2019-08-02 07:05 | NUR ---
I saw [facility] MAC waste 25mcg Fentanyl
--- NOTE | 2019-08-02 10:00 | NUR ---
PT ASSESSED THIS AM AT 0715. PT SEDATED ON PRECEDEX AT 0.4MCG FOR MECH VENT. PT SOMULENT BUT AROUSES TO LIGHT TOUCH/VOICE. PT NODS HEAD APPROPRIATELY AT TIMES, AND RADIO INSTALLER AUTOMOBILE HAND TO COMMAND. AT 0800, PRECEDEX DECREASED TO 0.2MCG FOR PROBABLE WEANING TRIAL THIS AM, THEN TURNED OFF AT 0900. AT [address] ZENDEJAS AT BEDSIDE. PT PLACED ON SPONT W PS18/PEEP10. PT TOLERATED THIS WELL AND WAS THEN CHANGED TO PS12/PEEP6 AT 1120.
[2019-08-02 12:40] LABS: Creatinine, Blood 0.49 mg/dL (0.60-1.20); Vancomycin, Trough 16.4 ug/mL (5.0-10.0)
--- NOTE | 2019-08-02 13:38 | NUR ---
PT RESP RATE 40'S, PT ANXIOUS, SLIGHTLY AGITATED BUT REMAINS SOMEWHAT SOMULENT AT THE SAME TIME. FENT 25MCG HELPED PT'S PAIN AND HE WAS ABLE TO TOLERATE VENT FOR ABOUT 30MIN BEFORE RESP RATE UP AGAIN. DR HAMILTON NOTIFIED AND AT BEDSIDE. PT TO BE STARTED ON LOW DOSE PROPOFOL; DC PRECEDEX, AND PLACE PT BACK ON AC SETTINGS. AC14/TV500/55%/5. LASIX 20MG IV GIVEN PER DR ZENDEJAS. CATH MAX TO WHITE PICC PORT FOR POOR PATENCY. DR ZENDEJAS UPDATED PT'S DAUGHTER THIS AM WELL I. DR CASILLAS IN TO SEE PT THIS AM WELL. PT TOLERATING TUBE FEEDING W 0 RESIDUALS, LUNGS COARSE T/O WITH FAINT INSP WHEEZING TO NIDA. TEMP 100.0, NO OTHER CHANGES
--- NOTE | 2019-08-02 19:00 | NUR ---
ASSUMED CARE ASSUMED CARE OF PATIENT. REMAINS INTUBATED- AC 14, TV 500, PEEP 5, FIO2 55%. RR 20s. SEDATED WITH PRECEDEX NOW AT 20MCG/KG/MIN- INCREASED FROM 10MCG/KG/MIN D/T INCREASED RESTLESSNESS NOTED. PT ATTEMPTING TO MOUTH WORDS. DOES NOT NOD/SHAKE HEAD YES/NO. MOVES ALL EXTREMITIES. NOT FOLLOWING COMMANDS. MONITOR SHOWS AFLUTTER WITH OCCASIONAL PVCs, RATE 70s. BP STABLE. OG WITH PIVOT 1.5 AT GOAL RATE OF 45CC/HR. BAJWA PATENT AND DRAINING YELLOW URINE SOME SEDIMENT NOTED. L AKA NOTED. NERIS PICC PATENT WITH DRSG D/I. REMAINS IN DROPLET/CONTACT ISOLATION FOR MRSA. SEE SHIFT ASSESSMENT FOR FULL ASSESSMENT.
--- NOTE | 2019-08-02 19:39 | NUR ---
PT TOLERATED TWO HOUR WEAN FROM APPROX 10-12. RESP RATE AND AGITATION INCREASED DURING THIS TIME. AFTER GOSMAN PLACED PT BACK ON AC SETTINGS PROPOFOL WAS NOT NEEDED IMMEDIATELY. PT CALM AND RELAXED ONLY NEEDING TWO DOSES OF FENT AT 25MCG. PROPOFOL STARTED AT 10MCG AT 1739 FOR INCREASED AGITATION. TF RESIDUALS "0" T/O SHIFT. PT HAD COPIOUS WHITE SECRETIONS WITH EVERY TURN. REPORT GIVEN TO DREAD MAC AT 1900.
[2019-08-03 03:33] LABS: BASOPHILS ABSOLUTE AUTO 0.02 K/mm3 (0.00-0.23); BASOPHILS PERCENT AUTO 0 % (0-2); EOSINOPHILS ABSOLUTE AUTO 0.24 K/mm3 (0.00-0.68); EOSINOPHILS PERCENT AUTO 3 % (0-6); Hematocrit 33.7 % (37.0-53.0); Hemoglobin 9.6 g/dL (13.5-17.5); IMMATURE GRAN ABSOLUTE AUTO 0.08 K/mm3 (0.00-0.10); IMMATURE GRAN PERCENT AUTO 1 % (0-1); LYMPHOCYTES ABSOLUTE AUTO 0.85 K/mm3 (0.84-5.20); LYMPHOCYTES PERCENT AUTO 12 % (21-46); MONOCYTES ABSOLUTE AUTO 0.65 K/mm3 (0.16-1.47); MONOCYTES PERCENT AUTO 9 % (4-13); Mean Corpuscular HGB Conc 28.5 g/dL (31.5-36.5); Mean Corpuscular Volume 91 fL (80-100); Mean Platelet Volume 10.1 fL (9.1-12.4); NEUTROPHILS ABSOLUTE AUTO 5.27 K/mm3 (1.96-9.15); NEUTROPHILS PERCENT AUTO 74 % (41-73); Platelet Count 230 K/mm3 (150-400); RDW Coefficient Variation 15.9 % (11.7-14.2); RDW Standard Deviation 53.9 fL (35.1-46.3); Red Blood Cell Count 3.69 M/mm3 (4.30-5.90); White Blood Cell Count 7.11 K/mm3 (4.00-11.30)
--- NOTE | 2019-08-03 03:40 | NUR ---
RUE EDEMA RUE EDEMA NOTED TO BE INCREASED. NO REDNESS NOTED TO EXTREMITY. WARM TO TOUCH, BUT NOT HOT. STRONG RADIAL PULSE.
[2019-08-03 03:48] LABS: Anion Gap 3 mmol/L (6-16); Blood Urea Nitrogen 28 mg/dL (8-24); Bun/Creatinine Ratio 58.3 (12.0-20.0); CO2, Blood 38 mmol/L (21-32); Calcium, Blood 8.2 mg/dL (8.5-10.1); Chloride, Blood 100 mmol/L (98-108); Creatinine, Blood 0.48 mg/dL (0.60-1.20); Glomerular Filtration Rate >60 (60-); Glucose, Blood 209 mg/dL (70-99); Magnesium, Blood 2.1 mg/dL (1.6-2.4); Phosphorus, Blood 2.3 mg/dL (2.5-4.9); Potassium, Blood 3.9 mmol/L (3.5-5.5); Sodium, Blood 141 mmol/L (136-145)
--- NOTE | 2019-08-03 05:58 | NUR ---
SHIFT SUMMARY NO ACUTE CHANGES DURING NOC. REMAINS INTUBATED- AC 14, TV 500, PEEP 5, FIO2 45-55% T/O MOST OF NOC. CHANGED TO PRESSURE SUPPORT AT 0518- SEE RT DOCUMENTATION. SEDATED WITH PROPOFOL 10-20MCG/KG/MIN DURING NOC- NOW AT 10MCG/KG/MIN. WITH PROPOFOL @ 10MCG/KG/MIN, PT SQUEEZED HANDS TO COMMAND AND OPENED EYES. ATTEMPTS TO MOUTH WORDS. DOES NOT NOD/SHAKE HEAD YES/NO. PERIODS OF INCREASED RESTLESSNESS, BUT PT CALMS WITH REASSURANCE. REACHES BILATERAL HANDS UP TO ETT WHEN RESTRAINTS OFF. BP STABLE T/O NOC. REMAINED IN AFLUTTER, RATE 50s-70s. OCCASIONAL PVCs AND TRIGEMINY NOTED. AFEBRILE. MEDICATED WITH FENTANYL 25MCG IV X 2 DOSES FOR GRIMACING. RUE WITH INCREASED SWELLING NOTED.OG WITH PIVOT 1.5 AT GOAL RATE OF 45CC/HR. OG RESIDUAL <10CC WITH EACH CHECK. BAJWA PATENT AND DRAINING YELLOW URINE WITH SEDIMENT. POTASSIUM PHOS IVPB STARTED PER ELECTROLYTE REPLACEMENT PROTOCOL FOR PHOS LEVEL OF 2.3. WILL REPORT TO DAY SHIFT RN WHEN AVAILABLE.
[2019-08-03 05:59] LABS: PCO2 Arterial 58.6 mmHg (35-45); PO2 Arterial 56.7 mmHg (80-100); pH Blood Arterial 7.46 (7.35-7.45)
--- NOTE | 2019-08-03 08:55 | NUR ---
REPORT TAKEN AT 0700. PT ON PROPOFOL AT 10MCG FOR MECH VENT. PT ON SPONT W PS 15/5. PT DECREASED TO 13/5 AROUND 0800 AND ONLY TOLERATED THIS FOR APPROX 30 MIN BEFORE RESP RATE HIGH 30'S, TV <300, WITH INCREASED AGITATION. PT PLACED BACK TO 13/5 ALONG WITH FENT 25MCG WHICH SEEMED TO HELP WELL. ON ASSESSMENT PT IN AND OUT OF SLEEP W EYES OPEN SPONT. PT VERY SOMULENT AT TIMES, AROUSES TO SHAKE AND LOUD VOICE. NODS HEAD APPROPRIATELY AT TIMES. WILL GRASP HAND TO COMMAND. LUNGS COARSE AT TIMES AND CONTINUES TO HAVE COPIOUS ETT SECRETIONS W TURNS AND ORAL CARE; SECRETIONS THIN AND WHITE.
--- NOTE | 2019-08-03 09:51 | NUR ---
DR KENNEY IN TO SEE PT, VENOUS DOPPLER TO BE ORDERED.
--- NOTE | 2019-08-03 11:52 | NUR ---
PT CONT TO DO WELL ON PS WEAN W PROPOFOL AT 10MCG. BACK/BOTTOM CHACKED AT 1100. NO CHANGE IN SKIN, OVERALL INTACT, NO CHANGE TO PRIOR ULCERS, MEPILEX ON. PT'S BACK FELT VERY HOT C/O TYMPANIC READING OF 99.9. RECTAL PROBE PLACED W IMMEDIATE READING OF 103.8. DR KENNEY IN UNIT AND NOTIFIED. TYLENOL GIVEN DOWN OGT. GONZALEZ CX'S REPEATED.
--- NOTE | 2019-08-03 13:03 | NUR ---
NO IMPROVEMENT IN TEMP AFTER TYLENOL GIVEN. ICE TO UNDERARMS, NECK, AND GROIN. FAN PLACED ON PT. BACTRIM INFUSING.
--- NOTE | 2019-08-03 14:56 | NUR ---
TEMP REMAINS AT 103.6. ICED TOWEL PLACED TO CHEST W FAN. PT SLIGHTLY LESS RESPONSIVE ON SAME PROPOFOL DOSE AT 10MCG. PT HAS NOT RECEIVED ADDITIONAL SEDATION. PT ROUSED SOMEWHAT AFTER ICE PACKS PLACED, BUT OVERALL REMAINS VERY SOMULENT. COPIOUS SECRETIONS UNCHANGED.
--- NOTE | 2019-08-03 16:51 | NUR ---
PROPOFOL PLACED ON STANDBY TO ASSESS NEURO FUNCTION PT HAD BEEN MORE SOMULENT THAN EARLIER. PT AWOKE AFTER 10MIN AND WAS ABLE TO FOLLOW COMMANDS AND NOD HEAD NO TO PAIN, AND NO TO DISCOMFORT. PROPOFOL RESUMED AGAIN AT 10MCG. ICED TOWEL DRY AND ROOM TEMP REPLACED W ITH NEW COOL TOWEL. TEMP DOWN TO 101.1. NEW ICE PACKS AND FAN PLACED WELL.
--- NOTE | 2019-08-03 16:57 | NUR ---
RUE WITHOUT CLOT PER DOPPLER.
--- NOTE | 2019-08-03 18:30 | NUR ---
PT TEMP NOW 100.0. PT CONT TO TOLERATE PS WEAN ON PROPOFOL AT 10MCG. DR KENNEY CALLED PT'S DAUGHTER AND GAVE FULL UPDATE ON PT'S CONDITION. RESIDUALS "0" T/O SHIFT. PT REMAINS IN AFLUTTER W CONTROLLED RATE IN 70-80'S. BP'S HAVE BEEN STABLE/SLIGHTLY HTN T/O SHIFT.
--- NOTE | 2019-08-03 19:00 | NUR ---
ASSUMED CARE ASSUMED CARE OF PATIENT. REMAINS INTUBATED- PS 15/5, FIO2 45%. RR 20. SEDATED WITH PROPOFOL @ 10MCG/KG/MIN. OCCASIONALLY RESTLESS. MOVING ALL EXTREMITIES AND FOLLOWS SIMPLE COMMANDS. DOES NOT NOD HEAD, BUT DOES TRY TO MOUTH WORDS. BILATERAL SOFT WRIST RESTRAINTS IN PLACE TO PREVENT SELF-EXTUBATION. MONITOR SHOWS AFLUTTER WITH OCCASIONALY PVCs, RATE 60s. BP STABLE. TEMP 99.6F VIA RECTAL PROBE. OG WITH PIVOT 1.5 AT GOAL RATE OF 45CC/HR. BAJWA PATENT AND DRAINING YELLOW URINE WITH SEDIMENT. NERIS PICC NOTED. RUE SWELLING NOTED. SEE SHIFT ASSESSMENT FOR FULL ASSESSMENT.
--- NOTE | 2019-08-04 00:40 | NUR ---
HR/RR MONITOR SHOWS AFLUTTER, RATE MID-40s TO 60s. SBP 90s-100s. RR 8-12. PROPOFOL INFUSING AT 10MCG/KG/MIN. WILL HOLD SEDATION AT THIS TIME AND RE-EVALUATE.
--- NOTE | 2019-08-04 01:08 | NUR ---
CHANGE BACK TO AC VENTILATION PT'S RESPIRATORY RATE CONTINUES TO BE 8-10. TV >800. WHEN ASKED IF HE FEELS LIKE HE IS HAVING A HARD TIME BREATHING, HE SHRUGS HIS SHOULDERS AND THEN NODS HIS HEAD 'YES". CHANGED BACK TO AC VENTILATION AT THIS TIME- AC 14, TV 500, PEEP 5, AND FIO2 NOW 35%.
--- NOTE | 2019-08-04 01:20 | NUR ---
RESTLESSNESS/SEDATION PT WITH INCREASED RESTLESSNESS. ATTEMPTING TO MOUTH WORDS AND POLLING AGAINST RESTRAINTS. DENIES C/O PAIN BY SHAKING HIS HEAD "NO." RR MID-20s, TV MID-300s. MEDICATED WITH ATIVAN 1MG IV AND PROPOFOL RESTARTED AT 10MCG/KG/MIN AT THIS TIME. WILL CONTINUE TO MONITOR.
[2019-08-04 03:49] LABS: BASOPHILS ABSOLUTE AUTO 0.01 K/mm3 (0.00-0.23); BASOPHILS PERCENT AUTO 0 % (0-2); EOSINOPHILS ABSOLUTE AUTO 0.24 K/mm3 (0.00-0.68); EOSINOPHILS PERCENT AUTO 4 % (0-6); Hematocrit 30.7 % (37.0-53.0); Hemoglobin 8.9 g/dL (13.5-17.5); IMMATURE GRAN ABSOLUTE AUTO 0.04 K/mm3 (0.00-0.10); IMMATURE GRAN PERCENT AUTO 1 % (0-1); LYMPHOCYTES ABSOLUTE AUTO 0.52 K/mm3 (0.84-5.20); LYMPHOCYTES PERCENT AUTO 9 % (21-46); MONOCYTES ABSOLUTE AUTO 0.53 K/mm3 (0.16-1.47); MONOCYTES PERCENT AUTO 9 % (4-13); Mean Corpuscular HGB 26.3 pg (26.0-34.0); Mean Corpuscular Volume 91 fL (80-100); Mean Platelet Volume 10.4 fL (9.1-12.4); NEUTROPHILS ABSOLUTE AUTO 4.48 K/mm3 (1.96-9.15); NEUTROPHILS PERCENT AUTO 77 % (41-73); Platelet Count 195 K/mm3 (150-400); RDW Coefficient Variation 15.7 % (11.7-14.2); RDW Standard Deviation 52.2 fL (35.1-46.3); Red Blood Cell Count 3.39 M/mm3 (4.30-5.90); White Blood Cell Count 5.82 K/mm3 (4.00-11.30)
[2019-08-04 04:08] LABS: Anion Gap 3 mmol/L (6-16); Blood Urea Nitrogen 27 mg/dL (8-24); Bun/Creatinine Ratio 57.1 (12.0-20.0); CO2, Blood 37 mmol/L (21-32); Calcium, Blood 8.1 mg/dL (8.5-10.1); Chloride, Blood 97 mmol/L (98-108); Creatinine, Blood 0.47 mg/dL (0.60-1.20); Glomerular Filtration Rate >60 (60-); Glucose, Blood 239 mg/dL (70-99); Phosphorus, Blood 2.2 mg/dL (2.5-4.9); Sodium, Blood 137 mmol/L (136-145)
--- NOTE | 2019-08-04 05:18 | NUR ---
SHIFT SUMMARY NO ACUTE CHANGES. PT REMAINED ON PS 15/5 UNTIL 0100 THIS AM. CHANGED BACK TO AC 14, TV 500, PEEP 5 AT THAT TIME D/T PT COMPLAINING THAT HE FELT LIKE HE COULDN'T BREATHE. FIO2 BETWEEN 35-45% T/O SHIFT- NOW AT 45%. SEDATED WITH PROPOFOL AT 10MCG/KG/MIN. SHORT SEDATION VACATION DONE THIS AM. PT OPENS EYES TO SOUND. OCCASIONALLY NODS HEAD YES/NO APPROPRIATELY. ATTEMPTS TO MOUTH WORDS AND POINT AT THINGS. MEDICATED WITH ATIVAN X 1 DOSE AN ADJUNCT TO SEDATION. ALSO MEDICATED WITH FENTANLY 25MCG IV X 1 FOR C/O PAIN WITH GOOD RELIEF. BILATERAL SOFT WRIST RESTRAINTS REMAIN IN PLACE. REMAINS IN AFLUTTER, RATE 40s-60s. BP STABLE. TMAX 99.7F. OG WITH PIVOT 1.5 AT GOAL RATE OF 45CC/HR. BAJWA PATENT AND DRAINING YELLOW URINE WITH SEDIMENT- TOTAL OF 1200CC T/O NOC. NERIS PICC PATENT. RUE EDEMA UNCHANGED. WILL REPORT TO DAY SHIFT RN WHEN AVAILABLE.
[2019-08-04 05:29] LABS: PO2 Arterial 58.5 mmHg (80-100); pH Blood Arterial 7.44 (7.35-7.45)
--- NOTE | 2019-08-04 09:36 | NUR ---
CARE ASSUMED ASSESSMENT COMPLETED, PT REMAINS LIGHTLY SEDATED WITH PROPOFOL 10MCG/KG/MIN, IS ABLE TO OPEN EYES TO SOUND, TRACKS, FOLLOWS DIRECTIONS, SHAKES HEAD "NO" WHEN ASKED IF HAVING PAIN. VENT SETTINGS AC 14, Vt 500, FIO2 45%, PEEP 5, PLAN FOR PRESSURE SUPPORT AROUND LUNCH TIME TODAY. PT MEDICATED WITH ATIVAN FOR RESTLESSNESS/COUGHING WITH GOOD RESULTS. HR 70'S AFLUTTER, BP WNL, LS COARSE ON RIGHT, DIM ON LEFT, NO WHEEZES NOTED. DRESSINGS REMAIN CDI, WILL CHANGE AND TAKE PICTURES TODAY. RUE EDEMATOUS, NO HEAT OR REDNESS NOTED. ALL EXTREMS ELEVATED ON PILLOWS. BLISTERS TO R 1ST, 2ND, AND 3RD TOES DRY, APPEAR UNCHANGED FROM WEDNESDAY WHEN THIS RN CARED FOR PT LAST.
--- NOTE | 2019-08-04 10:10 | NUR ---
UPDATE TF DECREASED TO PIVOT 1.5 40ML/HR PER GLASS DRILLER. VENT AND PROPOFOL SETTINGS UNCHANGED, PT TOLERATING WELL. SPO2 >90%, RR 18. PT GIVEN TYLENOL THIS MORNING FOR FEVER, TEMP PER RECTAL PROBE DECREASING. PT RESTING QUIETLY WITH EYES CLOSED, NO RESTLESSNESS/AGITATION/COUGHING NOTED.
[2019-08-04 11:32] LABS: Vancomycin, Trough 17.1 ug/mL (5.0-10.0)
--- NOTE | 2019-08-04 11:47 | NUR ---
UPDATE RT AT BEDSIDE, VENT MODE CHANGED TO PRESSURE SUPPORT 12/5, RR 13, Vt 600'S, SPO2 97%. PT RESTING QUIETLY, WILL CONTINUE TO MONITOR. PROPOFOL REMAINS AT 10MCG.
--- NOTE | 2019-08-04 13:53 | NUR ---
UPDATE PT BECAME TACHYPNEIC ON SPONTANEOUS MODE, Vt'S 200'S. ATIVAN ADMINISTERED FOR ANXIETY, PS CHANGED TO 15/5 WITHOUT IMPROVEMENT IN Vt OR RR. PT BACK TO AC MODE AT PREVIOUS SETTINGS AROUND 1250. PT'S RR NOW 16, VT'S 500'S. PT RESTING QUIETLY WITH EYES CLOSED, WILL CONTINUE TO MONITOR.
--- NOTE | 2019-08-04 18:47 | NUR ---
END OF SHIFT PT TOLERATED VENT SETTINGS WELL, AC 14, Vt 500, FIO2 45%, PEEP 5. NO SEDATION VACATION THIS SHIFT PATIENT IS ALERT, RESPONSIVE, FOLLOWS DIRECTIONS, AND ANSWERS YES/NO QUESTIONS WITH PROPOFOL AT 10MCG/KG/MIN. MEDICATED WITH ATIVAN INTERMITTENTLY FOR COUGHING/RESTLESSNESS WITH GOOD RESULTS. VSS THIS SHIFT, HR 70'S AFLUTTER WITH PVC'S. LS COARSE TODAY, SECRETIONS FROM ETT DECREASING THIS EVENING, REMAIN WHITE. WOUND PICTURES TAKEN, WOUNDS CLEANSED AND DRESSED, SEE WOUND ASSESSMENT. PT RESTING IN BED WITH EYES CLOSED AT THIS TIME, VSS, NO S/SX AGITATION/RESTLESSNESS NOTED. PLAN TO ATTEMPT PS SETTING AGAIN TOMORROW. REPORT TO ONCOMING NURSE.
--- NOTE | 2019-08-04 20:00 | NUR ---
ASSUMED CARE OF PT AT 1915. REPORT RECEIVED AT BEDSIDE. PT PRESENTS IN BED. DOES OPEN EYES WITH VERBAL STIMULI. PT VENTED. AC 14, Tv 500, FIO2 45%, PEEP 5. SUCTIONED PT WITH RETURN OF PALE YELLOW SECRETIONS. WILL REVIEW CHART AND PLAN OF CARE FOR THIS PT.
--- NOTE | 2019-08-04 21:49 | NUR ---
FULL BEDBATH DONE FOR PT. TOLERATES IT WELL. DOES HAVE SOME COUGH WITH TURNS. MYCOSTATIN PUT IN FOLDS. SKIN FOLDS NOTED TO HAVE LIGHT PINK IN COLORATION WITH SOME BROKEN SKIN IN RIGHT PANNUS. WILL DO Q 2 HOUR TURNS TO PROTECT SKIN INTEGRITY.
--- NOTE | 2019-08-05 01:11 | NUR ---
MEDICATED PT WITH 25 MCG FENTANYL TO IMPROVE TOLERANCE OF VENT. ALSO INCREASED PROPOFOL TO 25 MCG/KG. MAINTAINING SAS 3-4. WILL CONTINUE TO MONITOR PT.
[2019-08-05 03:49] LABS: BASOPHILS ABSOLUTE AUTO 0.03 K/mm3 (0.00-0.23); BASOPHILS PERCENT AUTO 1 % (0-2); EOSINOPHILS ABSOLUTE AUTO 0.26 K/mm3 (0.00-0.68); EOSINOPHILS PERCENT AUTO 5 % (0-6); Hematocrit 30.9 % (37.0-53.0); Hemoglobin 9.2 g/dL (13.5-17.5); IMMATURE GRAN ABSOLUTE AUTO 0.03 K/mm3 (0.00-0.10); IMMATURE GRAN PERCENT AUTO 1 % (0-1); LYMPHOCYTES ABSOLUTE AUTO 0.53 K/mm3 (0.84-5.20); LYMPHOCYTES PERCENT AUTO 10 % (21-46); MONOCYTES ABSOLUTE AUTO 0.48 K/mm3 (0.16-1.47); MONOCYTES PERCENT AUTO 9 % (4-13); Mean Corpuscular HGB 26.6 pg (26.0-34.0); Mean Corpuscular HGB Conc 29.8 g/dL (31.5-36.5); Mean Corpuscular Volume 89 fL (80-100); Mean Platelet Volume 10.7 fL (9.1-12.4); NEUTROPHILS ABSOLUTE AUTO 4.13 K/mm3 (1.96-9.15); NEUTROPHILS PERCENT AUTO 76 % (41-73); Platelet Count 216 K/mm3 (150-400); RDW Coefficient Variation 15.3 % (11.7-14.2); RDW Standard Deviation 49.9 fL (35.1-46.3); Red Blood Cell Count 3.46 M/mm3 (4.30-5.90); White Blood Cell Count 5.46 K/mm3 (4.00-11.30)
[2019-08-05 04:06] LABS: Anion Gap 2 mmol/L (6-16); Blood Urea Nitrogen 21 mg/dL (8-24); Bun/Creatinine Ratio 40.6 (12.0-20.0); CO2, Blood 37 mmol/L (21-32); Chloride, Blood 97 mmol/L (98-108); Creatinine, Blood 0.52 mg/dL (0.60-1.20); Glomerular Filtration Rate >60 (60-); Glucose, Blood 173 mg/dL (70-99); Phosphorus, Blood 2.9 mg/dL (2.5-4.9); Sodium, Blood 136 mmol/L (136-145)
--- NOTE | 2019-08-05 06:08 | NUR ---
PT HAS BEEN MEDICATED SEVERAL TIMES THIS NIGHT WITH 25 MCG'S FENTANYL FOR VENT TOLERANCE. HAVE HAD PT TO PRESSURE SUPPORT THIS AM. UNFORTUNATELY PT'S RESPIRATORY RATE > 30 DURING THIS TIME. PT PLACED BACK TO AC SETTINGS PREVIOUS. PT CONTINUES TO TOLERATE TUBE FEEDING AT GOAL. PT HAS RHONCHI SCATTERED THROUGHOUT LUNGS. LIGHT YELLOW SECRETIONS PER ETT. COLOR HAS IMPROVED TO PALE COLOR. WHEN PT OFF SEDATION, WAS ABLE TO NOD HEAD 'YES' AND 'NO' TO QUESTIONS. PT CURRENTLY RESTING WITHOUT ISSUES. WILL CONTINUE TO MONITOR PT, AND WILL REPORT OFF TO ONCOMING RN.
--- NOTE | 2019-08-05 08:15 | NUR ---
ASSUMED CARE RECEIVED REPORT FROM BUBBA POPE. PT IS LYING ON HIS LEFT SIDE INTUBATED WITH 8.0 ETT LOCATED 24 @ [facility]. VENT SETTINGS: AC14/500/5/45%; PEAK PRESSURES ARE IN THE 20'S, HIS RR IS LOW 20'S. PROPOFOL INFUSING AT 25 MCG/KG/MIN, AND NS TKO INFUSING. HE IS IN A FLUTTER CURRENTLY WITH A RATE IN THE LOW 60's, WITH STABLE BPs. HE HAS A PICC LINE IN HIS NERIS WITH A BLUE/GOLDEN PORT THAT IS NOT FLUSHING OR DRAWING BLOOD, THE SITE LOOKS WNL AND THE OTHER TWO PORTS ARE INFUSING ADEQUETLY. HE IS ON TF VIA OG TUBE, PIVOT 1.5 INFUSING AT GOAL, 40 ML/HR WITH Q4H 30 ML FLUSHES. HIS 0800 RESIDUALS WERE 0. HE HAS A PATENT BAJWA DRAINING YELLOW URINE. HE HAS BILATERAL SOFT WRIST RESTRAINTS SECURED TO BED. BED LOW AND LOCKED.
--- NOTE | 2019-08-05 14:58 | NUR ---
UPDATE WOUND CARE - PT'S RIGHT ANTERIOR [place] OPEN BLISTER/ULCER(?) APPEARS TO BE HEALING UP QUITE WELL COMPARED TO PREVIOUS PICTURES. GRANULATION TISSUE PRESENT, NO S/S OF INFECTION, AND NO DRAINAGE AT THIS TIME. RIGHT LATERAL [place] OPEN BLISTER ALSO APPEARS TO BE HEALING UP COMPARATIVELY WITH NO SIGNS OF INFECTION AND NO DRAINAGE. NEW MEPIPLEX CLOVERS WERE REPLACED FOR BOTH OF THEM. ON THE COCCYX THERE APPEARS TO BE EXCORIATIONS, RATHER THAN A DECUB ULCER. THERE WAS SCANT SEROSANGUINOUS DRAINAGE, SURROUNDING TISSUE LOOKED LIKE A 'CECE RED'. APPEARS TO BE GETTING BETTER COMPARATIVELY TO THE PREVIOUS PICTURES. THE MEPIPLEX WAS CHANGED TO A NEW ONE HERE WELL. FOLDS: PANNUS, BREANNE AREA, BREASTS, AND LEGS - THE BREANNE AREA WAS VERY MOIST, AND RED AROUND THE SCROTUM AND BREANNE-ANAL AREA. WE USED SOAPY WARM WATER AND CLEANED UP THE AREA (ALONG WITH THE FOLDS IN HIS BREASTS, LEGS AND PANNUS). AFTER, WE PATTED DRY THE AREA DRY, AND APPLIED NYSTATIN POWDER. THE RIGHT BREAST HAD SOME ERYTHEMA INSIDE THE FOLD. THE LEFT UNDER-SIDE OF THE PANNUS HAD SOME ERYTHEMA AND MOISTURE WELL. THE RLE HAS SOME MAJOR DARKENED DISCOLORATION, WITH NO HAIR GROWING. THE RIGHT FOOT WAS VERY DRY WITH WHAT APPEARED TO BE SCABS THAT HAVE NEVER REALLY HEALED.
--- NOTE | 2019-08-05 15:18 | NUR ---
VITAL SIGNS/RESP RATE CORRECTION THE ICU MONITOR IS CALCULATING THE RESPIRATORY RATE INCORRECTLY. THE VENTILATOR SHOWS THE PT BREATHING ~18-25 BREATHS/MIN, WHILE THE MONITOR SEEMS TO BE DOUBLING THE RATE SHOWING IT IN THE 30's-40's. SO WHEN LOOKING AT VITALS FOR MAJORITY OF MY SHIFT - PAY NO ATTENTION TO THE RRs > 30, FOR HE REMAINED IN THE 18-25 RANGE UP TIL AT LEAST THIS POINT (1518).
--- NOTE | 2019-08-05 17:13 | NUR ---
SHIFT SUMMARY PT CURRENTLY LYING SUPINE UNDERGOING A SPONTANEOUS BREATHING TRIAL. VENT IS ON SPONTANEOUS SETTINGS WITH PS 15/5. PROPOFOL IS ON STANDBY. PT IS MAINTAINING TIDAL VOLUMES > 300, AND A RR BELOW 30 - HOWEVER, WILL SOMETIMES HIT THE 30'S, BUT HE IS REDIRECTABLE AND FOLLOWS COMMANDS. HE CONSCIOUSLY WILL TRY TO TAKE SLOWER AND DEEPER BREATHS WHEN YOU TELL HIM TO. SATS ARE MAINTAINED AT 90-92%. NEURO. PT FOLLOWS COMMANDS, SQUEEZES FINGERS, AND LETS GO. HE HARO ON COMMAND. HE CAN NOD AND SHAKE HIS HEAD, HOWEVER, IT CAN BE QUITE DIFFICULT TO GET HIM TO DO THIS PART. HE MAY NOT BE ABLE TO UNDERSTAND EVERYTHING I AM SAYING, THOUGH. HE TRACKS WITH HIS EYES. HE CONTINUES TO TRY AND REACH FOR HIS TUBE AND FIGHTS AGAINST RESTRAINTS. EVERYTIME I WALK IN AND TELL HIM TO STOP AND RELAX - HE DOES, UNTIL HE REACHES AGAIN MINUTES LATER. THE PLAN IS TO KEEP HIM ON SPONTANEOUS MODE (UNLESS HE FAILS CERTAIN PARAMETERS) TILL TONIGHT, AND THEN HE CAN HAVE A BREAK ON AC MODE OVERNIGHT. PREVIOUS SETTINGS WERE AC 14/500/5/45%. PT IS PRODUCING LESS PHLEGM BY THE END OF SHIFT, BUT IT HAS BEEN WHITE COLOR WITH THIN - TO - MODERATELY THICK CONSISTENCY. SEE PREVIOUS NOTE REGARDING WOUND CARE. WOUNDS OVERALL LOOK THOUGH THEY ARE GETTING BETTER. HE HAS PLENTY URINE OUTPUT, BUT SWELLING REMAINS FAILY SIGNIFICANT IN HIS UPPER EXTREMETIES. DR. KENNEY INCREASED LASIX DOSE TO 40 MG BID, FROM 20 MG. NO BM TODAY. RESIDUALS WERE 0 - TO - 5 TODAY, FORMULA COLORED. PIVOT 1.5 REMAINS AT 40 ML/HR, GOAL WITH THE Q4H 30 mL WATER FLUSHES. PT'S 1200 SUGAR WS 160 AND WITHIN THE RANGE THE DOCTOR WISHED FOR IN HER NOTE. THE SLIDING SCALE TOLD ME TO GIVE HER 3 UNITS OF REGULAR INSULIN ANYWAY. BED LOW AND LOCKED. NO CALL FROM FAMILY TODAY. PT MEDICATED WITH FENTANYL/NORCO WITH ELEVATED CPOT SCORE.
--- NOTE | 2019-08-05 19:00 | NUR ---
PT BACK ON AC /5/45% VENT SETTINGS. HE WAS GETTING TIRED, RESTLESS, AND TACHYPNEIC. HE SPENT A FEW HOURS ON SPONTANEOUS 03/08, DR KENNEY WANTED HIM TO GO BACK TO AC SETTINGS FOR OVERNIGHT. PT SAT'ING LOW 90'S, AND DOING WELL AFTER TURNING SEDATION BACK ON.
--- NOTE | 2019-08-05 20:00 | NUR ---
ASSUMED CARE OF PT AT 191. REPORT RECEIVED AT 1914. PT PRESENTS IN BED. VENTED. AC 14, Tv 500, FIO2 45 %, PEEP 5. PT TOLERATING VENT WITH PROPOFOL AT 35 MCG/KG. WILL REVIEW CHART AND PLAN OF CARE FOR THIS PT.
--- NOTE | 2019-08-06 | NUR ---
FULL BEDBATH COMPLETED. OF NOTE: PT'S WOUNDS AND ESCORIATIONS HAVE BEEN HEALING WELL. DID PLACE MYCOSTATIN TO ANY AREA THAT WAS REDDENED AND ESCORIATED. PILLOW CASES PLACED IN FOLDS. HAVE SUCTIONED PT PER ETT. SMALL AMOUNTS OF LIGHT COLORED SECRETIONS. PT CONTINUES ON TUBE FEEDING AT GOAL RATE. PT TOLERATING WELL. MINIMAL RESIDUALS NOTED. WILL CONTINUE TO MONITOR PT.
[2019-08-06 05:02] LABS: BASOPHILS ABSOLUTE AUTO 0.03 K/mm3 (0.00-0.23); BASOPHILS PERCENT AUTO 1 % (0-2); EOSINOPHILS PERCENT AUTO 4 % (0-6); Hemoglobin 9.4 g/dL (13.5-17.5); IMMATURE GRAN ABSOLUTE AUTO 0.03 K/mm3 (0.00-0.10); IMMATURE GRAN PERCENT AUTO 1 % (0-1); LYMPHOCYTES ABSOLUTE AUTO 0.72 K/mm3 (0.84-5.20); LYMPHOCYTES PERCENT AUTO 15 % (21-46); MONOCYTES ABSOLUTE AUTO 0.44 K/mm3 (0.16-1.47); MONOCYTES PERCENT AUTO 9 % (4-13); Mean Corpuscular HGB 26.3 pg (26.0-34.0); Mean Corpuscular HGB Conc 29.4 g/dL (31.5-36.5); Mean Corpuscular Volume 90 fL (80-100); Mean Platelet Volume 10.8 fL (9.1-12.4); NEUTROPHILS ABSOLUTE AUTO 3.29 K/mm3 (1.96-9.15); NEUTROPHILS PERCENT AUTO 70 % (41-73); Platelet Count 228 K/mm3 (150-400); RDW Coefficient Variation 15.5 % (11.7-14.2); RDW Standard Deviation 50.5 fL (35.1-46.3); Red Blood Cell Count 3.57 M/mm3 (4.30-5.90); White Blood Cell Count 4.71 K/mm3 (4.00-11.30)
[2019-08-06 05:24] LABS: Anion Gap 4 mmol/L (6-16); Blood Urea Nitrogen 21 mg/dL (8-24); Bun/Creatinine Ratio 40.3 (12.0-20.0); CO2, Blood 36 mmol/L (21-32); Calcium, Blood 8.3 mg/dL (8.5-10.1); Chloride, Blood 98 mmol/L (98-108); Creatinine, Blood 0.52 mg/dL (0.60-1.20); Glomerular Filtration Rate >60 (60-); Glucose, Blood 158 mg/dL (70-99); Potassium, Blood 4.2 mmol/L (3.5-5.5); Sodium, Blood 138 mmol/L (136-145)
--- NOTE | 2019-08-06 06:14 | NUR ---
MEDICATED PT WITH 25 MCG'S FENTANYL WHILE FOR VENT TOLERANCE. PT CURRENTLY OFF PROPOFOL SEDATION AND ON SPONTANEOUS BREATHING. PT'S RESPIRATORY RATE 20'S TO LOW 30'S. IS DIRECTABLE. NO S/S ADVERSE REACTIONS TO ANTIBIOTIC THERAPY TO NOTE. PT HAS REMAINED AFEBRILE THROUGHOUT THE SHIFT. WILL CONTINUE TO MONITOR PT, AND WILL REPORT OFF TO ONCOMING RN.
--- NOTE | 2019-08-06 09:55 | NUR ---
PT IS ON PS 16 AT PEEP-10. VS NOTED. PT RESTING WELL ON SETTING.
--- NOTE | 2019-08-06 10:27 | NUR ---
PT HAS BEEN TURNED TO PD [address] KENNEY AND PT IS TOLERATING WELL. PEEP REMAINS AT 10 AND FIO2 AT 45%.
--- NOTE | 2019-08-06 12:14 | NUR ---
T.F. PIVOT DEC. TO 25ML/HR PER VAMSHI Guy. VERBAL ORDER AND WRITTEN TO FOLLOW. PT APPEARS TO BE ATTEMPTING TO REACH FOR ET TUBE AND RESTRAINTS FULLY ASSESSES WITH THIS TURN.
--- NOTE | 2019-08-06 18:30 | NUR ---
PT IS TOLEARTING PS-14 WITH 10 PEEP AND RR HAS GENERALLY BEEN 18-35 WITH TV 600-800 AND HAS SEEMED TO TOLERATE THESE SETTINGS THIS DAY. PT SECREATIONS HAVE BEEN LESS AND WHITE IN CHARACTER. I/O'S NOTED. NO TF RESIDUALS AND PIVOT AT 25ML. CBG NOTED AND COVERED. WOUND DSG REMAIN INTACT. PT HAS BEEN OBSERVED ACTIVELY ATTEMPTING TO REACH FOR ETT AND RESTRAINTS HAVE BEEN DOUBLE CHECKED.
--- NOTE | 2019-08-06 20:00 | NUR ---
PATIENT RESTLESS AND PULLING ON RESTRAINTS, SHAKING HEAD YES AND NO TO QUESTIONS, BUT NOT ALWAYS CONSISTENT WITH ANSWERS. ETT REMAINS IN PLACE WITH VENT CHANGED TO AC 14, TV 500, PEEP 10, FIO2 45% BY RT. PROPOFOL RESTARTED AT 25 MCG TO HELP PATIENT RELAX. OG IN PLACE WITH TUBE FEEDING AT GOAL RATE OF 25 CC/HR. LEFT AKA. DRESSING INTACT TO LEFT LEG AND COCCYX. FAN ON PATIENT DUE TO ELEVATED TEMP OF 101.0
[2019-08-07 04:15] LABS: Base Excess Venous 13.4 mmol/L; Bicarbonate Venous 35.8 mmol/L (24.0-30.0); PCO2 Venous 44.2 mmHg (38-42); pH Blood Venous 7.52 (7.34-7.37)
[2019-08-07 04:41] LABS: BASOPHILS ABSOLUTE AUTO 0.03 K/mm3 (0.00-0.23); BASOPHILS PERCENT AUTO 1 % (0-2); EOSINOPHILS ABSOLUTE AUTO 0.16 K/mm3 (0.00-0.68); EOSINOPHILS PERCENT AUTO 3 % (0-6); Hematocrit 31.3 % (37.0-53.0); Hemoglobin 9.1 g/dL (13.5-17.5); IMMATURE GRAN ABSOLUTE AUTO 0.02 K/mm3 (0.00-0.10); IMMATURE GRAN PERCENT AUTO 0 % (0-1); LYMPHOCYTES ABSOLUTE AUTO 1.02 K/mm3 (0.84-5.20); LYMPHOCYTES PERCENT AUTO 19 % (21-46); MONOCYTES ABSOLUTE AUTO 0.55 K/mm3 (0.16-1.47); MONOCYTES PERCENT AUTO 11 % (4-13); Mean Corpuscular HGB 25.9 pg (26.0-34.0); Mean Corpuscular HGB Conc 29.1 g/dL (31.5-36.5); Mean Corpuscular Volume 89 fL (80-100); Mean Platelet Volume 10.9 fL (9.1-12.4); NEUTROPHILS ABSOLUTE AUTO 3.47 K/mm3 (1.96-9.15); NEUTROPHILS PERCENT AUTO 66 % (41-73); Platelet Count 250 K/mm3 (150-400); RDW Standard Deviation 51.9 fL (35.1-46.3); Red Blood Cell Count 3.52 M/mm3 (4.30-5.90); White Blood Cell Count 5.25 K/mm3 (4.00-11.30)
[2019-08-07 04:57] LABS: Anion Gap 4 mmol/L (6-16); Blood Urea Nitrogen 22 mg/dL (8-24); Bun/Creatinine Ratio 38.4 (12.0-20.0); CO2, Blood 35 mmol/L (21-32); Calcium, Blood 8.3 mg/dL (8.5-10.1); Chloride, Blood 97 mmol/L (98-108); Creatinine, Blood 0.57 mg/dL (0.60-1.20); Glomerular Filtration Rate >60 (60-); Glucose, Blood 119 mg/dL (70-99); Potassium, Blood 3.8 mmol/L (3.5-5.5); Sodium, Blood 136 mmol/L (136-145)
--- NOTE | 2019-08-07 06:28 | NUR ---
SUMMARY PATIENT REMAINS INTUBATED AND SEDATED WITH VENT SET AT AC 14, TV 500, PEEP 8, FIO2 40%. PROPOFOL ON FOR THE NIGHT TITRATED TO 20 MCG THIS AM. PATIENT AWAKENS EASILY, CONTINUES TO REACH FOR ETT WHEN AWAKE, BILAT WRIST RESTRAINTS CONTINUES TO PREVENT ACCIDENTAL EXTUBATION. OG REMAINS IN PLACE WITH TUBE FEEDING AT GOAL RATE OF 25/HR.
--- NOTE | 2019-08-07 08:00 | NUR ---
PT OPENS EYES TO VOICE. NODS APPROPRIATELY TO "YES" OR "NO" QUESTIONS APPROPRIATELY. PT REACHES FOR ETT WHEN NOT RESTRAINED, BUT GENERALLY COOPERATIVE AND FOLLOWING COMMANDS WITH PROPOFOL @ 20 MCG/KG/MIN. ECG CONTIUES AFLUTTER WITH RATE 50-60'S. TEMP 100.0 (RECTAL). BP STABLE. LUNGS COARSE T/O AND DIMINISHED IN THE BASES. ETT TO VENT: AC 14, TV 500, FIO2 40% PEEP 8. SATS>90% SUCTION PRODUCTIVE OF A MODERATE AMOUNT OF THICK, DOMINGUEZ SECRETIONS. ABDOMEN OBESE WITH HYPOACTIVE BT'S X 4. NO RESIDUAL FROM OGTF-CONTINUES WITH PIVOT 1.5 @ GOAL OF 25 ML/HR. BAJWA WITH ADEQUATE AMOUNT OF CLEAR, YELLOW URINE TO UROMETER. NYSTATIN POWDER TO SKIN FOLDS. DRESSING TO COCCYX C/D/I. DRESSING X 2 (MEPILEX) TO RIGHT LOWER EXTREMITY C/D/I. SCATTERED SCABS PRESENT TO RIGHT LOWER EXTREMITY. EDEMA CONTINUES-SKIN THIN AND FRAGILE.
--- NOTE | 2019-08-07 08:30 | NUR ---
PROPOFOL DECREASED TO 10 MCG/KG/MIN AND PT MED WITH FENTANYL 25 MCG IVP X 1 IN PREP FOR SBT. VENT PLACED ON PS 14/10-FIO2 40%.
--- NOTE | 2019-08-07 08:45 | NUR ---
PT AGITIATED. RESPIRATORY RATE 30'S. STACKING BREATHES. SATS 85%. TITRATED FIO2 TO 60% TO KEEP SATS>90% AND MED WITH ATIVAN 2 MG IVP X 1 FOR AGITATION.
--- NOTE | 2019-08-07 09:00 | NUR ---
PT NO LONGER AGITATED. SATS 97% TITRATED FIO2 DOWN TO 50%.
--- NOTE | 2019-08-07 10:10 | NUR ---
DR. HIGH IN TO SEE PT. UPDATED TO CURRENT VS AND STATUS. PS 14, PEEP 8, FIO2 40$-SATS >90%
--- NOTE | 2019-08-07 10:45 | NUR ---
PT AGITATED. RESP 30. SATS 85% ON FIO2 40%-MED WITH FENTANYL 25 MCG IVP X 1.
--- NOTE | 2019-08-07 11:20 | NUR ---
PT PLACED ON PS 5-MAINTAINING SATS>90%
--- NOTE | 2019-08-07 11:45 | NUR ---
PT MAINTAINING SATS>90% ON PS 14, PEEP 5, FIO2 40% CONTINUES TO TOLERATE TF @ GOAL WITH NO RESIDUAL. CBG 119-NO COVERAGE REQUIRED. VANCO TROUGH SENT.
[2019-08-07 12:24] LABS: Vancomycin, Trough 21.9 ug/mL (5.0-10.0)
--- NOTE | 2019-08-07 15:30 | NUR ---
PT AWAKE AND ALERT-SLIGHTLY AGITATED-REACHING FOR ETT/PULLING ON RESTRAINTS.. MED WITH FENTANYL 50 MCG IVP X1, THEN WOUND CARE AND DRESSING CHANGE TO COCCYX. PT GIVEN SUPPOSITORY NO BM X SEVERAL DAYS, AND LINEN CHANGE COMPLETED. PT TOLERATED WELL. PT THEN SHAVED. PT AGITATED AFTER SHAVE AND ORAL CARE COMPLETED. MED WITH ATIVAN 2 MG IVP X 1. PROPOFOL DRIP CONTINUES @ 10 MCG/KG/MIN. LUNGS DIMINISHED IN THE BASES. SUCTION PRODUCTIVE OF MODERATE AMOUNT OF THICK, DOMINGUEZ SECRETIONS-SOME MUCUS PLUGS SUCTIONED. MAINTAINS SATS>90% ON PS 14, FIO2 40%, PEEP 5. CONTINUES TO TOLERATE OFTF WITH MINIMAL RESIDUAL. BAJWA WITH 1200 CC OUT SO FAR THIS SHIFT. PT GIVEN AFTERNOON DOSE OF LASIX-SEE EMAR.
--- NOTE | 2019-08-07 16:15 | NUR ---
PT NO LONGER ABLE TO MAINTAIN SATS>90% ON PS VENTILATION. RETURNED TO AC 14, TV 500, FIO2 40%, PEEP 5-SATS>90%. PROPOFOL INCREASED TO 20 MCG/KG/MIN.
--- NOTE | 2019-08-07 17:37 | NUR ---
PT RESTING QUIETLY ON VENT/AC MODE. PROPOFOL @ 20 MCG/KG/MIN. PT REACHES FOR ETT WHEN NOT RESTRAINED. LUNGS DIMINISHED THROUGH OUT, BUT MAINTAINS SATS >90% ON FIO2 40%. TOLERATED PS 14 FROM 6512-9511 THIS SHIFT. EDEMA REMAINS UNCHANGED. CONTINUES TO TOLERATE TF WELL MINIMAL RESIDUAL. CBG 119-NO COVERAGE REQUIRED. INTAKE 1110 VS. 2500 (-[phone]) THIS SHIFT.
--- NOTE | 2019-08-07 17:48 | NUR ---
SATS TRENDING 85-87% ON FIO2 40% TITRATED FIO2 TO 50% TO KEEP SATS>90%
--- NOTE | 2019-08-07 19:45 | NUR ---
PATIENT INTUBATED AND SEDATED WITH PROPOFOL AT 20 MCG, VENT SET AT AC 14, TV 500, PEEP 5, FIO2 40%. PATIENT OPENS EYES SPONT, PULLING AT RESTRAINTS, NOT ALWAYS FOLLOWING DIRECTIONS. INCONT OF LARGE LIQUID BROWN STOOL, PROPOFOL INCREASED TO 30 MCG TO HELP PATIENT RELAX AFTER BED CHANGE AND BATH. OG IN PLACE WITH TUBE FEEDING AT GOAL RATE OF 25 CC/HR.
[2019-08-08 04:59] LABS: Anion Gap 6 mmol/L (6-16); Blood Urea Nitrogen 26 mg/dL (8-24); Bun/Creatinine Ratio 51.1 (12.0-20.0); CO2, Blood 34 mmol/L (21-32); Calcium, Blood 8.4 mg/dL (8.5-10.1); Chloride, Blood 100 mmol/L (98-108); Creatinine, Blood 0.51 mg/dL (0.60-1.20); Glomerular Filtration Rate >60 (60-); Glucose, Blood 120 mg/dL (70-99); Potassium, Blood 3.7 mmol/L (3.5-5.5); Sodium, Blood 140 mmol/L (136-145)
--- NOTE | 2019-08-08 06:29 | NUR ---
SUMMARY PATIENT REMAINS INTUBATED AND SEDATED, PROPOFOL AT 25 MCG, VENT SET AT AC 14, TV 500, PEEP 5, FIO2 40%. PATIENT HAVING LARGE AMT OF THIN LIGHT YELLOW SECRETIONS VIA ETT. AWAKENS EASILY TO SLIGHT STIMULI, FOLLOWING SIMPLE DIRECTIONS AND NODDING YES AND NO. OG REMAINS IN PLACE WITH TUBE FEEDING AT GOAL RATE OF 25 CC/HR WITH NO MEASURABLE RESIDUALS. PATIENT PASSING SEVERAL LARGE SOFT LOOSE BROWN BM'S T/O NIGHT.
--- NOTE | 2019-08-08 07:30 | NUR ---
ASSUMED CARE: PT RESTING IN BED, OPENS EYES, NODS TO YES/NO QUESTIONS. CURRENTLY ON 25 MCG/KG/MIN OF PROPOFOL. HR AFLUTTER IN 40S AT THIS TIME. VENT SETTINGS AC 14/500/35%/5. BAJWA CLEAR YELLOW URINE. NO ACUTE NEEDS OR CONCERNS AT THIS TIME.
--- NOTE | 2019-08-08 10:30 | NUR ---
DR LU CAME IN TO SEE PT AND SWITCHED HIM TO PRESSURE SUPPORT OF 10 AND ASKED TO SWITCH PT TO PRECEDEX FROM PROPOFOL. PT WAS BOOSTED UP IN BED AND PUT IN CHAIR POSITION. STARTED REQUIRING A LOT OF ORAL AND ET SUCTIONING. THIN YELLOW SECRETIONS NOTED IN ET TUBE.
--- NOTE | 2019-08-08 12:13 | NUR ---
DR LU CHECKED IN WITH PT, TURNED PRESSURE SUPPORT UP TO 14 AND REQUESTED PRECEDEX INCREASED TO 0.8MCG/KG/MIN. ORDER FOR UP TO 1.4. PT APPEARS TO TOLERATE THIS MORE DUE TO SATURATION IN 90S AND MAINTAINING.
--- NOTE | 2019-08-08 13:34 | NUR ---
PT'S HR DROPPING INTO 30S. TITRATED PRECEDEX DOWN TO 0.3 WITH NO IMPROVEMENT. DISCUSSED WITH [employer]BER [employer]URITY WHO SUGGESTED TITRATING TO 0.1 WHICH IS WHERE PRECEDEX IS SET NOW. PT ROUSES EASILY BUT APPEARS VERY TIRED. HR CURRENTLY 48. WILL CONTINUE TO MONITOR
[2019-08-08 13:39] LABS: Vancomycin, Trough 22.9 ug/mL (5.0-10.0)
--- NOTE | 2019-08-08 14:31 | NUR ---
CALL TO DR LU TO ASK FOR FURTHER ORDERS DUE TO PT'S HR IN 40S WITH PRECEDEX AT 0.1MCG/KG/MIN. DR INSTRUCTED EPINEPHRINE AND TITRATE FOR HR 65 OR BETTER AND TO KEEP PRECEDEX GOING SO PT CAN BE AWAKE ENOUGH TO WEAN OFF VENT. VERIFIED EPI DRIP WITH BUBBA RUIZ
--- NOTE | 2019-08-08 18:06 | NUR ---
SHIFT SUMMARY: PT RESTING QUIETLY IN BED, ON PRESSURE SUPPORT AT 14, 500/40%/5. PRECEDEX GTT AT 0.5MCG/KG/MIN. EPINEPHRINE AT 5MCG/MIN. HR IN 70S TO 80S. OCCASIONAL PVCS NOTED. TUBE FEED WITH 0 RESIDUALS THIS SHIFT. BAJWA WITH YELLOW URINE, SOME SEDIMENT NOTED. CARE NEEDS COMPLETED. NO FURTHER NEEDS NOTED AT THIS TIME.
--- NOTE | 2019-08-08 18:39 | NUR ---
DR LU CAME IN TO SEE PT. AWARE OF DRIP SETTINGS AND ADJUSTED PER HIS RECOMMENDATIONS. DR LU ADJUSTED PRESSURE SUPPORT TO 8. DR ALSO AWARE OF PT'S OCCASIONAL PVCS. STATES TO KEEP PT AT PRESSURE SUPPORT T/O NIGHT LONG PT ALLOWS. PT REPOSITIONED. NO FURTHER NEEDS OR CONCERNS AT THIS TIME.
--- NOTE | 2019-08-08 19:00 | NUR ---
ASSUMED CARE ASSUMED CARE OF PATIENT. REMAINS INTUBATED- PS 8, PEEP 5, FIO2 40%. RR UPPER 30s. SEDATED WITH PRECEDEX AT 0.8MCG/KG/HR. OPENS EYES TO VERBAL STIMULI. NODS HEAD YES/NO APPROPRIATELY. ATTEMPTS TO MOUTH WORDS. RESTLESSNESS NOTED. BILATERAL SOFT WRIST RESTRAINTS IN PLACE TO PREVENT SELF-EXTUBATION. MONITOR SHOWS AFLUTTER WITH OCCASIONAL PVCs, RATE 70s. EPINEPHRINE GTT INFUSING AT 2.5MCG/MIN. BP STABLE. OG WITH PIVOT 1.5 AT GOAL RATE OF 25CC/HR. 30CC H20 Q4H. BAJWA PATENT AND DRAINING YELLOW URINE. L AKA NOTED. RIGHT PICC PATENT, DRSG D/I. SEE SHIFT ASSESSMENT FOR FULL ASSESSMENT.
--- NOTE | 2019-08-08 20:43 | NUR ---
RESTLESSNESS/TACHYPNEA INCREASED RESTLESSNESS AND COUGHING NOTED. RR INCREASED TO 30-40s. PRECEDEX CONTINUES AT 0.8MCG/KG/HR. MEDICATED WITH ATIVAN 2MG IV.
--- NOTE | 2019-08-08 21:06 | NUR ---
TACHYPNEA RT AT BEDSIDE. PT CONTINUES WITH TACHYPNEA 30s-40s. PRESSURE SUPPORT INCREASED TO 10/5 AT THIS TIME AND RR IMMEDIATELY DECREASED TO MID-20s.
--- NOTE | 2019-08-08 23:10 | NUR ---
CHANGE TO AC RR MID-30s TO 40s. PT NODS HEAD "YES" WHEN ASKED IF HE FEELS LIKE HE'S HAVING A HARD TIME BREATHING. CHANGED TO AC VENTILATION- AC 14, TV 500, PEEP 5, FIO2 40%. RR NOW MID-20s. PRECEDEX CONTINUES AT 0.8MCG/KG/HR.
[2019-08-09 04:15] LABS: BASOPHILS ABSOLUTE AUTO 0.03 K/mm3 (0.00-0.23); BASOPHILS PERCENT AUTO 1 % (0-2); EOSINOPHILS ABSOLUTE AUTO 0.08 K/mm3 (0.00-0.68); EOSINOPHILS PERCENT AUTO 1 % (0-6); Hematocrit 35.4 % (37.0-53.0); Hemoglobin 10.6 g/dL (13.5-17.5); IMMATURE GRAN ABSOLUTE AUTO 0.05 K/mm3 (0.00-0.10); IMMATURE GRAN PERCENT AUTO 1 % (0-1); LYMPHOCYTES ABSOLUTE AUTO 0.75 K/mm3 (0.84-5.20); LYMPHOCYTES PERCENT AUTO 12 % (21-46); MONOCYTES ABSOLUTE AUTO 0.54 K/mm3 (0.16-1.47); MONOCYTES PERCENT AUTO 9 % (4-13); Mean Corpuscular HGB 26.2 pg (26.0-34.0); Mean Corpuscular HGB Conc 29.9 g/dL (31.5-36.5); Mean Corpuscular Volume 88 fL (80-100); Mean Platelet Volume 10.4 fL (9.1-12.4); NEUTROPHILS ABSOLUTE AUTO 4.93 K/mm3 (1.96-9.15); NEUTROPHILS PERCENT AUTO 77 % (41-73); Platelet Count 345 K/mm3 (150-400); RDW Coefficient Variation 15.9 % (11.7-14.2); RDW Standard Deviation 51.5 fL (35.1-46.3); Red Blood Cell Count 4.04 M/mm3 (4.30-5.90); White Blood Cell Count 6.38 K/mm3 (4.00-11.30)
[2019-08-09 04:33] LABS: Anion Gap 5 mmol/L (6-16); Blood Urea Nitrogen 26 mg/dL (8-24); Bun/Creatinine Ratio 53.1 (12.0-20.0); CO2, Blood 34 mmol/L (21-32); Calcium, Blood 8.4 mg/dL (8.5-10.1); Chloride, Blood 98 mmol/L (98-108); Creatinine, Blood 0.49 mg/dL (0.60-1.20); Glomerular Filtration Rate >60 (60-); Glucose, Blood 244 mg/dL (70-99); Potassium, Blood 3.9 mmol/L (3.5-5.5); Sodium, Blood 137 mmol/L (136-145)
--- NOTE | 2019-08-09 06:03 | NUR ---
SHIFT SUMMARY NO ACUTE CHANGES DURING NOC. REMAINS INTUBATED. PS 8-10/5 WITH FIO2 40% UNTIL APPROXIMATELY 2300 AND THEN CHANGED TO AC 14, TV 500, PEEP 5. FIO2 NOW @ 30%. RR ANYWHERE FOR 14-40s. SX THICK YELLOW SPUTUM. SEDATED WITH PRECEDCEX BETWEEN 0.6-0.8MCG/KG/HR- NOW INFUSING @ 0.6MCG/KG/HR. MEDICATED WITH ATIVAN 2MG IV X 1 DOSE DURING SHIFT FOR TACHYPNEA AND RESTLESSNESS. PT FOLLOWS SOME COMMANDS AND NODS HEAD 'YES/NO" APPROPRIATELY. DENIED C/O PAIN WHEN ASKED. REMAINED IN AFLUTTER, RATE 50-70s. BP STABLE. EPINEPHRINE INFUSED BETWEEN 2.5-3MCG/MIN- NOW AT 3MCG/MIN. OG WITH PIVOT 1.5 AT GOAL RATE OF 25CC/HR. 30CC HW0 FLUSH Q4H TO KEEP TUBE PATENT. OG RESIDUAL HAS CONSISTENTLY BEEN BETWEEN 0-5CC. BAJWA PATENT AND DRAINING YELLOW URINE. PICC LINE PATENT TO NERIS. REMAINS IN DROPLET/CONTACT ISOLATION. WILL REPORT TO DAY SHIFT RN WHEN AVAILABLE.
--- NOTE | 2019-08-09 07:05 | NUR ---
ASSUMED CARE: RECEIVED REPORT FROM NOC RN. PT LYING IN BED NO DISTRESS NOTED, EVEN CHEST RISE AND FALL. WILL CONTINUE TO MONITOR AND ASSESS FURTHER.
--- NOTE | 2019-08-09 07:46 | NUR ---
IV FLUIDS RUNNING AT THIS TIME: PRECEDEX @ 0.6 MCG/KG/HR @ DOSING WT OF 144KG NS @ TKO FOR PIGGYBACKS EPINPHRINE DOUBLE STRENGTH (4MCG/ML) @ 3 MCG/MIN TUBE FEEDING PIVOT 1.5 @ 25ML/HR & H2O FLUSH OF 30ML Q 4HR
--- NOTE | 2019-08-09 09:00 | NUR ---
DR ASSESSMENT: REVIEWED PT STATUS WITH DR JONES. NO CHANGES TO ORDERS AT THIST TIME
--- NOTE | 2019-08-09 09:30 | NUR ---
DITITION: DISCUSSED DIETARY NEEDS OF PT WITH FADIA YOON. DISCUSSED INCREASING TUBE FEEDING ALTHOUGH PT MAY END UP GETTING EXTUBATED TOMORROW AND REMOVING LIQUACEL. WILL CONTINUE TO MONITOR AND ASSESS FURTHER.
--- NOTE | 2019-08-09 10:00 | NUR ---
CHANGED TO SPONTANIOUS: DR LU IN TO ASSESS PT. TURNED VENT TO PRESSURE SUPPORT AND INCREASED PRECEDEX TO 1MCG/KG/HR.
--- NOTE | 2019-08-09 10:30 | NUR ---
INCREASED RESPRATORY RATE: PT IS NOTED TO BE SOUNDING THE ALARM ON THE VENT DUE TO INCREASED RESPRATORY RATE IN THE 40'S. INCREASED THE PRECEDEX TO 1.4MCG/KG/HR PER ORDERS. DAUGHTER CALLED AND GAVE UPDATE. DAUGHTER IS CONCERNED ABOUT POSSIBLE TRACH AND WOULD LIKE TO SEE THE PT BEFORE A TRACH IS PLACED IF IT BECOMES NEEDED. DR LU AND COTTON TIPPER STACEY UPDATED.
--- NOTE | 2019-08-09 10:45 | NUR ---
PRESSURE SUPPORT: DISCUSSED WITH DR LU IF WE COULD INCREASE PRESSURE SUPPORT D/T PTS NOTED ANXIETY AND INCREASED RESPRATORY RATE. RECEIVED ORDER TO ADMINISTER FENTANYL AND CONTINUE AT CURRENT VENT SETTINGS.
--- NOTE | 2019-08-09 11:45 | NUR ---
VENT SETTINGS FULL SUPPORT: VENT SETTINGS RETURNED TO FULL SUPPORT FROM SPONTANIOUS AT THIS TIME PER DR LU. PT APPEARED TO REDUCE RESPRATORY RATE AND INCREASE TIDAL VOLUME AFTER RECEIVING FENTENYL. DR LU STATE WE WILL REASSESS FOR POSSIBLE EXTUBATION TOMORROW.
--- NOTE | 2019-08-09 19:00 | NUR ---
INITAL SHIFT ASSESSMENT PT IS ALERT AT THIS TIME. HE IS INTUBATED AND SEDATED WITH A PRECEDEX GTT. SEE FLOW SHEET FOR TITRATION T/O SHIFT. CURRENTLY AT 0.9MCG. PT IS ALERT ENOUGH TO SHAKE HEAD YES OR NO TO QUESTIONS. SEEMS TO BE FAIRLY ORIENTED. HE IS ABLE TO FOLLOW SOME COMMANDS. ABLE TO SQUEEZE THIS NURSES HAND WHEN ASKED. RT IN ROOM TO ASSESS PT WELL. MINIMAL RETURN TO ET SUCTIONING AND ORAL CARE TOLERATED WITH MINIMAL ORAL SECRETIONS. VITALS ARE STABLE AT THIS TIME. PT IS ON AN EPI GTT AT 3MCG TO HELP KEEP HR ABOVE 60BMP. WILL TITRATE INDICATED. GTT ARE RUNNING INTO PICC LINE TO RIGHT UPPER ARM. DRESSING CDI NO S/S OF INFECTIONS. PT HAS AN OG TUBE IN PLACE WELL WITH TUBE FEEDING RUNNING ORDERED. NO RESIDUALS AT THIS CHECK. BAJWA CATH IN PLACE NO S/S OF INFECTION. CATH CARE DONE AT THIS TIME WELL. DRESSINGS TO RIGHT LEG IN PLACE. WILL CHANGE WITH BED BATH. RASHAD SOFT WRIST RESTRAINTS IN PLACE. NO S/S OF SKIN BREAK DOWN AND GOOD CIRCULATION. WILL CON'T TO MONITOR AND KEEP PT SAFE T/O SHIFT.
--- NOTE | 2019-08-09 23:28 | NUR ---
SHIFT UPDATE PT CON'T TO BE STABLE WITH NO CHANGES FROM BASELINE. NO CHANGES TO GTT RATES. PT WAS GIVEN SOME FENTANYL IV FOR AGGITATION AND SHAKING HIS HEAD YES TO PAIN. HE WAS UNABLE TO COMMUNICATE WHERE HIS PAIN IS LOCATED. PT RESPONDING WELL TO FENTANYL. HE WAS TURNED AT THIS TIME AND TOLERATED THIS WELL. RASHAD WRIST RESTRAINTS CON'T TO BE IN PLACE WITH GOOD CIRCULATION. CHANGED PICC DRESSING WELL. CON'T TO BE PATENT. WILL CON'T TO MONITOR AND KEEP PT SAFE T/O SHIFT.
[2019-08-10 03:48] LABS: Anion Gap 5 mmol/L (6-16); Blood Urea Nitrogen 24 mg/dL (8-24); Bun/Creatinine Ratio 52.2 (12.0-20.0); CO2, Blood 33 mmol/L (21-32); Calcium, Blood 8.2 mg/dL (8.5-10.1); Chloride, Blood 95 mmol/L (98-108); Creatinine, Blood 0.46 mg/dL (0.60-1.20); Glomerular Filtration Rate >60 (60-); Glucose, Blood 269 mg/dL (70-99); Potassium, Blood 3.7 mmol/L (3.5-5.5); Sodium, Blood 133 mmol/L (136-145)
--- NOTE | 2019-08-10 05:44 | NUR ---
SHIFT SUMMARY PT OVERALL HAS HAD NO ACUTE CHANGES T/O SHIFT. FIO2 INCREASED TO 40% THIS AM. PT HAD SATS HOLDING IN THE HIGH 80'S. RT NOTED THAT PT WEARS 4-5L AT HOME OF OXYGEN THUS IT WAS DECIDED TO INCREASE TO 40%. PRECEDEX GTT CON'T TO BE ON AT 0.9MCG. EPI GTT CON'T TO BE ON AT 3MCG. VITALS ARE STABLE. OG IN PLACE WITH TUBE FEEDING RUNNING. CON'T TO HAVE NO RESIDUALS. BAJWA CATH IN PLACE WITH HIGH OUTPUT. PT IS RESPONDING WELL TO LASIX IV. PT IS STILL FOLLOWING SOME SIMPLE COMMANDS AND SHAKING HEAD YES AND NO. SOFT BILATERAL WRIST RESTRAINTS CON'T TO BE IN PLACE WITH NO SKIN BREAK DOWN ISSUES. WILL CON'T TO KEEP PT SAFE TILL REPORT TO ONCOMING RN.
[2019-08-10 08:19] LABS: Vancomycin, Trough 12.8 ug/mL (5.0-10.0)
--- NOTE | 2019-08-10 12:30 | NUR ---
REASSESSMENT/EXTUBATION PT EXTUBATED AT 1220 AND PLACED RIGHT ONTO BIPAP. PT IS TOLERATING SO FAR. PRECEDEX AND EPI GTTS TURNED OFF. PT'S SHEKHAR IS AT THE BEDSIDE ALONG WITH PALLIATIVE CARE. TUBE FEEDING STOPPED WITH EXTUBATION. LUNGS REMAIN COARSE IN THE BASES. LARGE AMT OF SPUTUM SUCTIONED PRIOR TO EXTUBATION. REMAINS IN AFLUTTER, BP STABLE. CONTINUING TO MONITOR.
--- NOTE | 2019-08-10 12:45 | NUR ---
REASSESSMENT PT IS RESTING IN BED, JUST TALKED WITH DR. REHMAN AND PLAN IS FOR PT TO GO TO [employer] [facility] THIS AFTERNOON. PT'S TO COME BY FOR QUICK VISIT BEFORE HE GOES. PT IS STILL DYSPNEIC AT REST, BUT ABLE TO TALK IN FULL SENTENCES. HE DESATS TO THE MID 80S WITH TOO MUCH TALKING OR IF HE FORGETS TO FOCUS ON BREATHING THROUGH HIS NOSE. AIRVO REMAINS AT 60L AND 95%. SR TO ST WITH RATE IN THE 90-LOW 100S WITH FREQUENT PVCS AT TIMES. HTN WITH SBP IN THE 140-160S. ECHO AND VENOUS DOPPLER COMPLETE. CONTINUING TO MONITOR.
--- NOTE | 2019-08-10 12:50 | NUR ---
Spoke with Bedside RN Priscilla. Plan is to extubate Pt today. Pt has been intubated for 14 days. Priscilla reports daughter eTodora is unsure if Pt would want to have trach. Pt extubated and placed on BIPAP. Pt appears lethargic but is slowly waking. Escorted Pt's daughter from ICU waiting room to room. Encouraged Claire to express fears and discuss concerns. Teodora appears slightly withdrawn and not ready to engage in conversation. Teodora reports plan to have discussion with Pt once awake enough to determine his wishes. Instructed Teodora this RN will remain available for any questions or concerns. Palliative Care will remain available.
--- NOTE | 2019-08-10 16:18 | NUR ---
Patient is lying in bed and able to look around but can't communicate well except to nod his head for yes and no. Patient says he is not going well and that he would like prayer. I provide prayer and a calming presence.
--- NOTE | 2019-08-10 16:21 | NUR ---
SHIFT SUMMARY PT WAS EXTUBATED TODAY AND HAS DONE WELL ON THE BIPAP. HE IS ORIENTED TO SELF, PLACE AND YEAR. FOLLOWS DIRECTIONS. LUNGS ARE COARSE IN THE BASES. AFLUTTER WITH RATE IN THE 60S. BP STABLE. PRECEDEX AND EPI REMAIN OFF. BAJWA DRAINING CLOUDY YELLOW URINE. NO BM TODAY. PT'S SHEKHAR CAME BY AND WAS ABLE TO SEE PT. SHE WAS FULLY UPDATED BY DR. HIGH. CONTINUING TO MONITOR.
--- NOTE | 2019-08-10 20:00 | NUR ---
ASSUMED CARE OF PT AT 1915. REPORT RECEIVED AT BEDSIDE. PT PRESENTS IN BED. ALERT AND ORIENTED. DR HIGH IN AND DISCUSSES PLAN OF CARE FOR THIS PT. SPOKE WITH PT CONCERNING DR HIGH'S RECOMMENDATIONS. PT ABLE TO HOLD CONVERSATION. DOES HAVE PRODUCTIVE MOIST COUGH WHICH HE IS HAVING DIFFICULTY CLEARING. YAUNKEUR SUCTIONING DONE WITH GOOD RESULTS. WILL REVIEW CHART AND PLAN OF CARE FOR THIS PT.
--- NOTE | 2019-08-11 | NUR ---
PT'S MENTATION AND ABILITY TO FOLLOW COMMANDS HAVE BEEN GREATLY IMPROVED. PT PROVIDED YAUNKEUR AND TEACHING HOW TO SELF CLEAR HIS SECRETIONS HAS BEEN VERY SUCCESSFUL. HAVE DONE SAFE SWALLOW TEACHING WITH PT DOING CHIN TUCK WITH SWALLOW. PT DEMONSTRATES SAFE SWALLOW. ABLE TO TAKE HIS MED WITHOUT ISSUES. PT TO WEAR BIPAP MASK THIS NIGHT.
[2019-08-11 03:45] LABS: BASOPHILS ABSOLUTE AUTO 0.04 K/mm3 (0.00-0.23); BASOPHILS PERCENT AUTO 1 % (0-2); EOSINOPHILS ABSOLUTE AUTO 0.28 K/mm3 (0.00-0.68); EOSINOPHILS PERCENT AUTO 5 % (0-6); Hematocrit 37.8 % (37.0-53.0); Hemoglobin 11.1 g/dL (13.5-17.5); IMMATURE GRAN ABSOLUTE AUTO 0.05 K/mm3 (0.00-0.10); IMMATURE GRAN PERCENT AUTO 1 % (0-1); LYMPHOCYTES PERCENT AUTO 16 % (21-46); MONOCYTES ABSOLUTE AUTO 0.45 K/mm3 (0.16-1.47); MONOCYTES PERCENT AUTO 8 % (4-13); Mean Corpuscular HGB 25.6 pg (26.0-34.0); Mean Corpuscular HGB Conc 29.4 g/dL (31.5-36.5); Mean Corpuscular Volume 87 fL (80-100); Mean Platelet Volume 9.5 fL (9.1-12.4); NEUTROPHILS ABSOLUTE AUTO 3.96 K/mm3 (1.96-9.15); NEUTROPHILS PERCENT AUTO 70 % (41-73); Platelet Count 297 K/mm3 (150-400); RDW Coefficient Variation 15.7 % (11.7-14.2); RDW Standard Deviation 50.5 fL (35.1-46.3); Red Blood Cell Count 4.33 M/mm3 (4.30-5.90); White Blood Cell Count 5.68 K/mm3 (4.00-11.30)
[2019-08-11 04:00] LABS: Anion Gap 4 mmol/L (6-16); Blood Urea Nitrogen 24 mg/dL (8-24); CO2, Blood 34 mmol/L (21-32); Calcium, Blood 8.1 mg/dL (8.5-10.1); Chloride, Blood 98 mmol/L (98-108); Creatinine, Blood 0.44 mg/dL (0.60-1.20); Glomerular Filtration Rate >60 (60-); Glucose, Blood 130 mg/dL (70-99); Potassium, Blood 3.1 mmol/L (3.5-5.5); Sodium, Blood 136 mmol/L (136-145)
--- NOTE | 2019-08-11 06:17 | NUR ---
PT HAS BEEN COMPLIANT WITH WEARING BIPAP MASK MOST OF THE NIGHT. DID HAVE BREAK FROM MASK TO NASAL CANNULA SO THAT HE COULD WATCH TELEVISION. PT REMAINS VERY ALERT AND ORIENTED. PLEASANT AND COOPERATIVE WITH CARE AND ASSESSMENT. HAS NO COMPLAINTS OF PAIN OR DISTRESS. HAVE ORIENTED PT TO DATE AND TIME. ALLOWED PT TO ASK QUESTIONS. WILL CONTINUE TO MONTITOR PT, AND WILL REPORT OFF TO ONCOMING RN.
--- NOTE | 2019-08-11 07:05 | NUR ---
ASSUMED CARE: RECEIVED BEDSIDE REPORT FROM NOC RN. PT IS NOTED TO BE SITTING UP IN THE BED UPON ENTERING THE ROOM TALKING AND PARTICIPATING IN DISCUSSION. PT DOES APPEAR TO GET CONFUSED EASILY. WILL CONTINUE TO MONITOR AND ASSESS FURTHER.
--- NOTE | 2019-08-11 08:18 | NUR ---
BROOK DE SOUZA: SPEECH THERAPIST IN THE ROOM AT THIS TIME.
[2019-08-11 08:26] LABS: Vancomycin, Trough 16.3 ug/mL (5.0-10.0)
--- NOTE | 2019-08-11 11:00 | NUR ---
BIPAP ON: PLACED PT ON BIPAP AT THIS TIME D/T LOW SATS AND SLOW COMPENSATION.
--- NOTE | 2019-08-11 12:00 | NUR ---
BED BATH, WOUNDS, OOB: COMPLEATED BEDBATH AND RETOOK ALL WOUND PICTURES, UPON REVIEWING PREVIOUS PICTURES A FEW PICTURES WERE MISSED. BILAT ABD FOLDS APPEAR TO BE MUCH BETTER, MILD REDNESS NOTED NYSTATIN POWDER APPLIED. ALL DRESSINGS CHANGED. PT UP TO CHAIR WITH THE LIFT.
--- NOTE | 2019-08-11 12:00 | NUR ---
BIPAP OFF: DR RIVER CHANGED SETTING ON BIPAP SHORTLY AFTER PLACING PT ON THE BIPAP. PT TAKEN OFF BIPAP AT THIS TIME SO HE CAN EAT AND PLACED ON HIGH FLOW NC AT THE 5L HE WAS PREVIOUSLY ON.
--- NOTE | 2019-08-11 17:52 | NUR ---
TRANSFER: PT TO PCU 1 REPORT GIVEN
--- NOTE | 2019-08-11 18:15 | NUR ---
PT BROUGHT TO PCU 1 VIA RECLINER FROM ICU, HE IS A/OX3, COOPERATIVE WITH CARE, STATES HE'S DOING OK. NO NEEDS AT THIS TIME. CALL LIGHT IN REACH.
--- NOTE | 2019-08-11 18:48 | NUR ---
Clinical Visit: Called by ICU nurse to fill out a POLST form on pt. He had been a full code status, extubated yesterday. He is now expressing wish to change to DNR/DNI. Pt was transfered to PCU. Risks explained for DNR/DNI status. Pt reports that he would like to be DNR. No other concerns at this time, will remain available. Pt reports that he is feeling better. Call placed to Dr. Velez. Orders recieved for code status change. POLST in chart waiting for doctor signature.
--- NOTE | 2019-08-11 22:00 | NUR ---
ASSUMED CARE Assumed care of pt at approx 1900 after report was recieved from BUBBA Rodriguez. pt transferred from ICU to [facility] at approx 1800. Pt sitting in recliner. VSS. Breathing even, shallow, coarse lung sounds. Pt transferred via ceiling lift from recliner to bed for dinner. Pt ate 4 bites of mashed potatos, feeder 1:1. Pills crushed in applesause, 5L NC. No desaturation noted. Pt is alert and oriented, hoarse and soft voice. See shift assessment for detailed systems assessment. No acute concerns to note at start of shift.
[2019-08-12 04:41] LABS: BASOPHILS ABSOLUTE AUTO 0.05 K/mm3 (0.00-0.23); BASOPHILS PERCENT AUTO 1 % (0-2); EOSINOPHILS ABSOLUTE AUTO 0.35 K/mm3 (0.00-0.68); EOSINOPHILS PERCENT AUTO 6 % (0-6); Hematocrit 37.9 % (37.0-53.0); Hemoglobin 11.1 g/dL (13.5-17.5); IMMATURE GRAN ABSOLUTE AUTO 0.03 K/mm3 (0.00-0.10); IMMATURE GRAN PERCENT AUTO 1 % (0-1); LYMPHOCYTES PERCENT AUTO 12 % (21-46); MONOCYTES ABSOLUTE AUTO 0.48 K/mm3 (0.16-1.47); MONOCYTES PERCENT AUTO 8 % (4-13); Mean Corpuscular HGB 25.6 pg (26.0-34.0); Mean Corpuscular HGB Conc 29.3 g/dL (31.5-36.5); Mean Corpuscular Volume 87 fL (80-100); Mean Platelet Volume 10.2 fL (9.1-12.4); NEUTROPHILS ABSOLUTE AUTO 4.32 K/mm3 (1.96-9.15); NEUTROPHILS PERCENT AUTO 73 % (41-73); Platelet Count 304 K/mm3 (150-400); RDW Coefficient Variation 15.3 % (11.7-14.2); RDW Standard Deviation 48.7 fL (35.1-46.3); Red Blood Cell Count 4.34 M/mm3 (4.30-5.90); White Blood Cell Count 5.93 K/mm3 (4.00-11.30)
[2019-08-12 04:59] LABS: Anion Gap 4 mmol/L (6-16); Blood Urea Nitrogen 20 mg/dL (8-24); Bun/Creatinine Ratio 47.8 (12.0-20.0); CO2, Blood 32 mmol/L (21-32); Calcium, Blood 8.3 mg/dL (8.5-10.1); Chloride, Blood 103 mmol/L (98-108); Creatinine, Blood 0.42 mg/dL (0.60-1.20); Glomerular Filtration Rate >60 (60-); Glucose, Blood 82 mg/dL (70-99); Magnesium, Blood 2.1 mg/dL (1.6-2.4); Phosphorus, Blood 2.8 mg/dL (2.5-4.9); Potassium, Blood 3.4 mmol/L (3.5-5.5); Sodium, Blood 139 mmol/L (136-145)
--- NOTE | 2019-08-12 06:24 | NUR ---
SHIFT SUMMARY VSS this shift, pt remains alert and oriented, little sleep, BIPAP for approx 2 hrs, tolerating 5-6LPM on NC with oxygen saturations in 90's. Denies SOB. Occasional moist cough, unable to cough up sputum. Flutter valve given to pt and pt instructed on how to use it. Pt demonstrated to this RN and used on and off this shift. PICC to NERSI patent and draws for morning labs. S/L at this time. Infused abx per orders. Pt denies pain, hoarse voice and soft spoken. Compliant with q2 hour turns, requires ceiling lift for repositions. Little PO intake this shift, pt stating he was educated on need for ST orders and aspiration precautions. He takes all pills crushed in applesauce and has a puree diet. No acute concerns to note. No respiratory events. Telemetry with no events. Uses call light appropriately. chest x-ray this AM.
--- NOTE | 2019-08-12 08:00 | NUR ---
PT LAYING IN BED AWAKE A/OX3, PLEASANT AND COOPERATIVE WITH CARE, FOLLOWS COMMANDS WELL, LETHARGIC AND SLOW TO ANSWER, LUNGS ARE COURSE, WITH WET COUGH, ASKED HIM TO COUGH FOR ME, HE SAID HE CAN'T, BUT AFTER ENCOURAGEMENT HE DID, CURRENTLY ON 5 LITERS 02 VIA N/C, RESP EVEN AND UNLABORED, NO COUGH NOTED EXCEPT WHAT I ASKED HIM TO DO, PICC LINE TO NERIS, SITE IS CLEAR AND PATENT, BTX4, ABD LARGE SOFT NONTENDER, HAS A CHRONIC BAJWA IN PLACE, DRAINING PEYTON URINE, SKIN HAS MULTIPLE WOUNDS TO RIGHT CUNNINGHAM AND BUTTOCKS, LEFT UKA, MOVES UPPER EXT, BUT IS WEAK, HE IS A LIFT TO GET OOB, RYAN, CALL LIGHT IN REACH.
--- NOTE | 2019-08-12 19:23 | NUR ---
PT HAD NO ACUTE CHANGES THIS SHIFT, WATCHING TV WHEN CARE NOT BEING DONE. NO COMPLAINTS, STATES HES DOING OK. CALL LIGHT IN REACH.
[2019-08-12 21:19] LABS: Vancomycin, Trough 16.8 ug/mL (5.0-10.0)
--- NOTE | 2019-08-12 23:05 | NUR ---
CARE ASSUMED REPORT RECEIVED, CARE ASSUMED AT 1900 FROM BUBBA MUHAMMAD. PT ORIENTED TO SELF ONLY UPON ASSUMING CARE, HAS PROGRESSIVELY BECOME MORE CONFUSED. AT THIS TIME DOES NOT KNOW HE IS IN THE HOSPITAL IN [place] OR KNOW THE DAY. THINKS IT IS MORNING TIME, BELIEVES HE IS GOING HOME. STRENGTH AND PUPILS EQUAL BILATERALLY. REFUSING BIPAP UNTIL THIS POINT. ALLOWS PLACEMENT OF BIPAP AT THIS TIME. VITALS STABLE. RR SLIGHTLY ELEVATED. PT TOOK MEDICATIONS IN [place] AND TOLERATED WELL. PT INTERMITTENTLY WILLING TO PARTICIPATE IN VARIOUS CARES INCLUDING TURNS. PT SPOKE WITH SON ON PHONE THIS EVENING, REQUIRED SETUP ASSISTANCE. PT AGREEABLE TO CALL FOR NEEDS, CALL LIGHT IN REACH.
--- NOTE | 2019-08-13 06:46 | NUR ---
SUMMARY THROUGHOUT NIGHT, PT HAS CONTINUED TO BE CONFUSED AND AGITATED. UNABLE TO REDIRECT PT TO DO CERTAIN TASKS. PT BEGINS YELLING, JERKING HANDS TOWARDS STAFF IN FRUSTRATION ATTEMPTED APPROX EVERY HOUR TO HAVE PATIENT WEAR BIPAP WITH VARIOUS STAFF MEMBERS IN HOPES THAT IT WOULD HELP WITH HIS CONFUSION AND PT ONLY WORE FOR APPROX 20 MINUTES TOTAL LAST NIGHT. FINALLY THIS MORNING AT APPROX 0600 PT ALLOWED RESPIRATORY THERAPIST TO PLACE BIPAP AND HE HAS WORN IT SINCE. HE CALLS OUT SAYING, "TAKE THIS OFF." BUT REDIRECTABLE WHEN EXPLAINED. OTHERWISE, VITALS STABLE. PT REQUIRES MAX ASSIST FOR MOST TURNS BUT OCCASIONALLY WILL TURN HIMSELF IN BED. URINE DARK PEYTON, ADEQUATE OUTPUT THIS SHIFT. NO BOWEL MOVEMENT. PT ONLY AGREEABLE TO TAKE PART OF BOWEL CARE REGIME REGARDLESS OF EDUCATION AT PM MEDICATION ADMINISTRATION.
--- NOTE | 2019-08-13 10:23 | NUR ---
PT CBG THIS MORNING WAS 68 DR JONES AWARE, CRANBERRY JUICE GIVEN CBG WENT UP TO 123 ORDER FOR D5W 25MLS ON STAND BY TO RE CHECK CBG AFTER 2 HRS AND NOTIFY PROVIDER.
--- NOTE | 2019-08-13 12:00 | NUR ---
CBG CHECKED AT 1100 AND WAS 91, CALLED AND NOTIFY DR JONES, ORDER TO PROCEED GIVING THE ONE TIME ORDER FOR D5W50% 25MLS. WILL RECHECK CBG AFTER AN HOUR. PT CURRENTLY UP IN RECLINER CHAIR, WILL ENCOURAGE TO EAT LUNCH. WILL MONITOR
--- NOTE | 2019-08-13 13:14 | NUR ---
CBG AT 115 RIGHT NOW AN HOUR AFTER D5W50% 25MLS GIVEN. PT CURRENTLY WORKING WITH SPEECH THERAPY WITH HIS LUNCH TRAY.
--- NOTE | 2019-08-13 17:05 | NUR ---
PT SUMMARY: PT ALERT MOSTLY CONFUSED FOR THE SHIFT, ABLE TO STATE FULL NAME AND , SOMETIMES KNOWS WHERE HE'S AT, SOMETIMES UNAWARE OF SURROUNDING ESPECIALLY UPON WAKING UP. PT WAS ENCOURAGED TO USE BIPAP WHEN SLEEPING PT WAS NOT AGREEABLE THIS MORNING DROP HIS BIPAP MASK ON THE FLOOR AND SWITCHED TO NASAL CANNULA. PT WAS OFFERED TO GET TO THE RECLINER FOR LUNCH PT AGREED, ALSO RE-OFFERED BIPAP MASK AND THIS TIME PT WAS AGREEABLE. PT WORKED WITH SPEECH THERAPY AND PT WAS COUGHING WITH HIS PUREED LUNCH MEAL PER ST, ORDER PLACE FOR NPO PLAN TO DO BARIUM SWALLOW IN AM. DR. JONES IS AWARE, UNABLE TO START IV FLUID D/T CHF ORDER TO CHECK CBG Q4HRS AND HAVE D5W50% PRN IF CBG <90. ALSO DR. JONES ORDERED TO GIVE BACTRIM DS CRUSHED IN APPLESAUCE WITH PRECAUTIONS. PT CURRENTLY BACK IN BED AT THIS TIME ON BIPAP FIO2 OF 40% ALTERNATING WITH 6L OF O2 VIA NC, SATS HAS BEEN ABOVE 94%. VITALS HAS BEEN STABLE, HRR AFLUTTER ON THE 70'S. CALL LIGHTS WITHIN REACH WILL REPORT TO ONCOMING SHIFT.
--- NOTE | 2019-08-13 23:09 | NUR ---
BIPAP PLACED ON PT AT THIS TIME, 02/23, 40%FIO2
--- NOTE | 2019-08-14 00:10 | NUR ---
Assumed Care Report recieved from BUBBA Nur and care assumed at 1900. Pt sitting in bed, conversing appropriately with staff, holding conversation. Breathing is even and unlabored on 5L NC. Pt states "I want to eat, now". pt educated on NPO status. Repositioned with ceiling lift, compliant with q2 hr turns. Newman patent and draining to gravity. This RN assisted pt with calling Son so that he could speak with him. Pt holding appropriate conversation with son. See shift assessment for detailed systems assessment. Pt with moist cough, coarse lung sounds in bilateral upper lobes. Tele showing atrial flutter in 80's with PVC ectopy. Denies palpitations or shortness of breath. q4hr CBG this shift, plan for barrium swallow evaluation tomorrow. No acute concerns to note at start of shift.
--- NOTE | 2019-08-14 00:57 | NUR ---
Upon waking, pt disoriented stating he's in "[place]" and not able to connect surroundings with location. He is also stating "I don't remember any of that" when events of previous couple of days was recounted to him. Will continue to monitor.
[2019-08-14 05:20] LABS: BASOPHILS ABSOLUTE AUTO 0.03 K/mm3 (0.00-0.23); BASOPHILS PERCENT AUTO 1 % (0-2); EOSINOPHILS PERCENT AUTO 5 % (0-6); Hematocrit 38.9 % (37.0-53.0); Hemoglobin 11.5 g/dL (13.5-17.5); IMMATURE GRAN ABSOLUTE AUTO 0.02 K/mm3 (0.00-0.10); IMMATURE GRAN PERCENT AUTO 1 % (0-1); LYMPHOCYTES ABSOLUTE AUTO 0.89 K/mm3 (0.84-5.20); LYMPHOCYTES PERCENT AUTO 20 % (21-46); MONOCYTES ABSOLUTE AUTO 0.52 K/mm3 (0.16-1.47); MONOCYTES PERCENT AUTO 12 % (4-13); Mean Corpuscular HGB 25.9 pg (26.0-34.0); Mean Corpuscular HGB Conc 29.6 g/dL (31.5-36.5); Mean Corpuscular Volume 88 fL (80-100); Mean Platelet Volume 9.4 fL (9.1-12.4); NEUTROPHILS ABSOLUTE AUTO 2.76 K/mm3 (1.96-9.15); NEUTROPHILS PERCENT AUTO 62 % (41-73); Platelet Count 320 K/mm3 (150-400); RDW Coefficient Variation 15.3 % (11.7-14.2); RDW Standard Deviation 49.1 fL (35.1-46.3); Red Blood Cell Count 4.44 M/mm3 (4.30-5.90); White Blood Cell Count 4.42 K/mm3 (4.00-11.30)
[2019-08-14 05:43] LABS: Anion Gap 3 mmol/L (6-16); Blood Urea Nitrogen 15 mg/dL (8-24); Bun/Creatinine Ratio 36.7 (12.0-20.0); CO2, Blood 34 mmol/L (21-32); Chloride, Blood 103 mmol/L (98-108); Creatinine, Blood 0.41 mg/dL (0.60-1.20); Glucose, Blood 91 mg/dL (70-99); Magnesium, Blood 2.1 mg/dL (1.6-2.4); Potassium, Blood 3.4 mmol/L (3.5-5.5); Sodium, Blood 140 mmol/L (136-145)
[2019-08-14 05:44] LABS: Calcium, Blood 8.8 mg/dL (8.5-10.1); Glomerular Filtration Rate >60 (60-); Phosphorus, Blood 3.1 mg/dL (2.5-4.9)
--- NOTE | 2019-08-14 06:03 | NUR ---
PT HAS BEEN CONFUSED THROUGHOUT THE SECOND PART OF THIS SHIFT, BECOMING AGITATED WITH STAFF, ATTEMPTING TO EXIT BED. BED ALARM ON AND PT REDIRECTED FREQUENTLY. HE IS ALSO TAKING OFF TELE PATCHES THROUGHOUT SHIFT. PT REQUESTING TO "CALL MY SON" MULTIPLE TIMES THROUGHOUT THIS SHIFT. SON CALLED 2 TIMES TOTAL AND PT BECOMING AGITATED DURING CONVERSATION WITH SON. SON CALLED THIS RN AND PER SON, PT DOES NOT EXHIBIT CONFUSION AT NIGHT AT BASELINE. SAFETY PRECAUTIONS IN PLACE, WILL CONTINUE TO MONITOR.
--- NOTE | 2019-08-14 06:14 | NUR ---
SHIFT SUMMARY Pt with moderate confusion this shift. BIPAP worn approx 4 hours, two separate times. BIPAP settings 12/6 and Fio2 40%. When not on BIPAP, pt on 5-6L NC. VSS. Alert, oriented to self. States we are "in [place] at my house" and that the year is "13". Pt agitated easily this shift, attempting to call son multiple times. Pt following commands in the moment, but requiring frequent redirections. Bed alarm on for safety, pt attempting to exit bed x1 this shift. Repositioned q2 hours with ceiling lift. Pt denies pain. Newman patent and draining to gravity. See previous notes for updates during shift. No changes to oxygen demand this shift. Will continue to monitor.
--- NOTE | 2019-08-14 08:00 | NUR ---
AM ASSESSMENT: Pt resting in bed. Oriented to self, family and day but confused to place and situation. Calls me Oralia. When asking him to state his name and birthday pt states "you call me dad". When I asked why I would call him that he stated "because I am your dad". Asked if Oralia was his daughter, pt stated yes and is certain that I am her. Pt became frusterated when I told him I was his nurse, Madelyn, not his daughter. Pt on 5L high flow NC. Biox 93%. LS diminished with courseness. Pt does grimmace slightly when he repositions self in bed. States that his back hurts at times. BT positive, abd very distended with hyperactive BT. R LE pulse palp. 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 Call light in reach, bed alarm on. Will continue to monitor pt needs and reorient.
--- NOTE | 2019-08-14 14:20 | NUR ---
Pt continues to be confused but is yelling out less frequently. Appears comfortable. Bed bath given and repostioned to R side. Pt does continue to reposition self back to L side. Will continue to mnoitor.
--- NOTE | 2019-08-14 19:10 | NUR ---
SHift Summary: Pt continued to be confused throughout the shift and continues to call me Oralia, thinking that I am his daughter. Pt did appear to dose on and off this afternoon. Had a ST assessment today and remains strict NPO. Pt has asked for water frequently and becomes frusterated when he is told that he can not have it. Low volume IVF were running per orders. Mouth swabs given to pt and he provides his own oral care. Pt repositioned self to L side continuously this shift. Wound dressings intact. This evening pt stated that he was having L armpit pain and was requesting his asa. AM aspirin med that he refused this am was given. Pt IVF stopped since he was c/o SOB. BIOX 93% on 5L high flow NC. Fan prvided. Report given to night RN. Care transfered.
--- NOTE | 2019-08-14 22:13 | NUR ---
IV Fluids placed on standby, lung sounds course and moist throughout, pt remains on 5L NC with oxygen saturations 95%. Moist, wet, nonproductive cough. Provider called and orders recieved for protable 1 view chest xray now, 40 mg IV lasix once, and to continue fluids. Lasix given per orders, fluids restarted, and xray in room at this time. will continue to monitor.
--- NOTE | 2019-08-14 22:13 | NUR ---
BIPAP placed on pt
--- NOTE | 2019-08-14 22:50 | NUR ---
Pt not tolerating BIPAP, pulling it off constantly and yelling "where is mina?!" Mina is pt's son. This RN attempting to reorient pt without success. BIPAP placed on standby and NC reapplied to pt. Will attempt BIPAP placement once pt settles.
--- NOTE | 2019-08-15 00:38 | NUR ---
Update/Provider call Pt with RR increased to 28 at rest, appears labored. BIPAP attempted again but pt pulling it off. Pt went from confusion and yelling out, very active, to solmnolence but arrousable. Pt complaining of feeling "cold" and temperature taken, Temporal 97.8 and oral 97.9. HR noted to decrease from 75 suddently to 55-60 on tele. Provider, Anastacio, called to notify of pt condition change, awaiting call back at this time.
--- NOTE | 2019-08-15 01:10 | NUR ---
RT at bedside, attempting to replace BIPAP again. HR increasing to 70's. BIPAP settings 12/5 at 40% fio2
--- NOTE | 2019-08-15 02:40 | NUR ---
BIPAP removed at this time, placed on 5L NC, RR 22, lungs remain coarse throughout. He is awake and alert at this time. Remains confused and disoriented but is no longer somnolent.
[2019-08-15 04:07] LABS: Anion Gap 6 mmol/L (6-16); Blood Urea Nitrogen 15 mg/dL (8-24); Bun/Creatinine Ratio 35.5 (12.0-20.0); CO2, Blood 33 mmol/L (21-32); Calcium, Blood 8.8 mg/dL (8.5-10.1); Chloride, Blood 102 mmol/L (98-108); Creatinine, Blood 0.42 mg/dL (0.60-1.20); Glomerular Filtration Rate >60 (60-); Glucose, Blood 129 mg/dL (70-99); Potassium, Blood 3.5 mmol/L (3.5-5.5); Sodium, Blood 141 mmol/L (136-145)
--- NOTE | 2019-08-15 05:30 | NUR ---
Shift Summary See previous notes for events of shift. Pt remains confused, lethargic or somnolent at times. MD aware. Breathing is mildly labored at rest, BIPAP attempted multiple times this shift but pt not compliant and taking it off. Oxygen saturations at >90% on 5L NC. Lungs are coarse throughout. 1400 mls urine output this shift. repositioned q2. CBG >100 throughout shift. dextrose 5 LR infusing at 30mls/hr per orders and order clarified with provider this shift. provider updated on lung sounds and lasix ordered and given per orders. fluids infusing per provider order into NERIS PICC. PICC dressing reinforced with adhesive tape this shift. labs drawn from PICC. Site WNL. Overall, mentation declining this shift, MD notified and aware. Will continue to monitor until Day RN assumes care.
--- NOTE | 2019-08-15 18:04 | NUR ---
SHIFT SUMMARY PT A&O TO PERSON, PLACE, AND TIME; STATES ITS AUGUST 14 BUT IS UNABLE TO STATE YEAR OR WHY HE IS HERE. THIS EVENING PT STARTING TO CALL OUT FAMILY NAMES; REORIENTED PT. PT SPO2 >90% T/O SHIFT ON 5L O2 VIA NC, LS DIM WITH CRACKLES IN THE BASES. BARRIUM SWALLOW COMPLETED, PT FEEDER WITH PUREE AND THICKENED LIQUIDS. CHRONIC BAJWA, PATENT AND DRAINING. CLARIFIED ORDERS TO GIVEN BACTRIM THIS AM WITH STRICT NPO STATES; PER DR FERRIS; CONTINUE TO GIVE CRUSHED IN APPLE SAUCE. VSS. NO OTHER ACUTE CHANGES NOTED DURING SHIFT. WILL CONTINUE TO MONITOR UNTIL RERORT GIVEN TO ONCOMING RN.
--- NOTE | 2019-08-16 05:33 | NUR ---
SHIFT SUMMARY: PATINT AGGITATED AT START OF SHIFT, PULLED OFF TELEMETRY AND IVF. PATIENT ABLE TO BE CALMED AFTER 1ST FEW HOURS AND TELEMETRY BACK ON BUT PATIENT STILL REFUSING IVF. PATIENT ANGRY THAT HE IS STILL HERE. MID SHIFT PATIENT O2 DEMANDS INCREASED FROM 5ML/HR O2 TO 8ML/HR O2. PATIENT REFUSING CPAP AT THIS TIME. PATIENT BECOMING MORE LETHARGIC OVER TIME, RT PLACED BIPAP AND PATIENT REMAINED LETHARGIC, SAME PATTERN LAST NIGHT. ALL VSS, CALL LIGHT WITHIN REACH, BED LOW AND LOCKED WITH EXIT ALARM ON.
--- NOTE | 2019-08-16 17:27 | NUR ---
SHIFT SUMMARY PT A&Ox3; PERSON, PLACE AND DATE. PT MENTATION APPEARS MORE CLEAR THEN YESTERDAY AND HAS SUSTAINED FOR LONGER; PT HAS MOMENTS OF FORGETFULNESS. PT NEEDING LIFT FROM BED TO RECLINER. TITRATED PT O2 FROM 7 TO 4-5L O2 ANC, NEW ORDERS FROM DR FERRIS TO MAINTAIN O2 SATURATIONS 90-94%; LS DIM T/O SHIFT. PT HAS MOIST COUGH, SUCTION SET UP AT BEDSIDE. PT COMPLETED ORAL CARE DURING SHIFT. PT DENIES PAIN, CHEST PAIN/PRESSURE, NAUSEA AND DIZZINESS. PT RECEIVING PO ANTIBIOTICS. PT/OT STARTED TODAY. PLANS FOR SLEEP STUDY THIS EVENING. VSS. NO OTHER ACUTE CHANGES NOTED DURING SHIFT. WILL CONTINUE TO MONITOR UNTIL REPORT GIVEN TO ONCOMING RN.
--- NOTE | 2019-08-17 04:18 | NUR ---
SHIFT SUMMARY: PATIENT STARTED ON SLEEP STUDAY AT APPROX 2200 08/16/19. COMPLIANT AND SLEPT MOST OF THE SHIFT. VSS, NO ISSUES NOTED, CALL LIGHT WITHIN REACH, BED LOW AND LOCKED WITH CLOSE MONITORING OF PATIENT.
[2019-08-17 05:05] LABS: PCO2 Arterial 55.7 mmHg (35-45); pH Blood Arterial 7.41 (7.35-7.45)
[2019-08-17 06:26] LABS: Albumin, Blood 2.5 g/dL (3.4-5.0); Anion Gap 5 mmol/L (6-16); Blood Urea Nitrogen 20 mg/dL (8-24); Bun/Creatinine Ratio 40.6 (12.0-20.0); CO2, Blood 34 mmol/L (21-32); Calcium, Blood 9.2 mg/dL (8.5-10.1); Chloride, Blood 100 mmol/L (98-108); Creatinine, Blood 0.49 mg/dL (0.60-1.20); Glomerular Filtration Rate >60 (60-); Glucose, Blood 138 mg/dL (70-99); Phosphorus, Blood 4.3 mg/dL (2.5-4.9); Sodium, Blood 139 mmol/L (136-145)
[2019-08-17 07:10] LABS: BASOPHILS ABSOLUTE AUTO 0.05 K/mm3 (0.00-0.23); BASOPHILS PERCENT AUTO 1 % (0-2); EOSINOPHILS ABSOLUTE AUTO 0.23 K/mm3 (0.00-0.68); EOSINOPHILS PERCENT AUTO 5 % (0-6); Hematocrit 39.5 % (37.0-53.0); Hemoglobin 11.4 g/dL (13.5-17.5); IMMATURE GRAN ABSOLUTE AUTO 0.02 K/mm3 (0.00-0.10); IMMATURE GRAN PERCENT AUTO 0 % (0-1); LYMPHOCYTES ABSOLUTE AUTO 0.96 K/mm3 (0.84-5.20); LYMPHOCYTES PERCENT AUTO 21 % (21-46); MONOCYTES ABSOLUTE AUTO 0.57 K/mm3 (0.16-1.47); MONOCYTES PERCENT AUTO 13 % (4-13); Mean Corpuscular HGB 25.5 pg (26.0-34.0); Mean Corpuscular HGB Conc 28.9 g/dL (31.5-36.5); Mean Corpuscular Volume 88 fL (80-100); Mean Platelet Volume 9.7 fL (9.1-12.4); NEUTROPHILS ABSOLUTE AUTO 2.68 K/mm3 (1.96-9.15); NEUTROPHILS PERCENT AUTO 60 % (41-73); Platelet Count 263 K/mm3 (150-400); RDW Coefficient Variation 15.5 % (11.7-14.2); RDW Standard Deviation 50.4 fL (35.1-46.3); Red Blood Cell Count 4.47 M/mm3 (4.30-5.90); White Blood Cell Count 4.51 K/mm3 (4.00-11.30)
--- NOTE | 2019-08-17 08:28 | NUR ---
AM NOTE... ASSUMED CARE OF PT APROX 0700. PT IS A&Ox3 WITH MOMENTS OF FORGETFULNESS. PT IS ANXIOUS TO D/C HOME TODAY. WAITING ON THE RESULTS OF THE SLEEP STUDY AND POSSIBLE TRILOGY FOR THE PT TO D/C HOME WITH. L/S COARSE W/EXP WHEEZES HEARD T/O. PT IS ON 4L NC WITH O2 SATS AT 92%. BT PRESENT AND HYPERACTIVE, ABD SOFT AND NONTENDER TO PALP. PT STILL HAS ASPIRATION PRECAUTIONS IN PLACE, NECTAR THICK FLUIDS ONLY. PT IS UP IN RECLINER CHAIR THIS AM. CALL LIGHT IN REACH WILL CONTINUE TO MONITOR.
--- NOTE | 2019-08-17 15:05 | NUR ---
Pt resting in recliner chair upon arrival. Pt reports 5/10 in his right knee. Pt reports current regimen is managing pain. Pt reports SOB has improved and denies nausea at this time. Pt reports mild anxiety due to being in the hospital and wanting to be at home. Pt also reports some anxiety due to his current health and knowing is time is short. Engaged in therapeutic listening as Pt discussed the importance of his children and grandchildren. Pt reports adequate support at home when he discharges. Discussed Pt's wishes for life sustaining measures and POLST that is currently on file. Pt's reports his wishes have changed. Pt reports not wanting CPR and not wanting to be intubated. Educated on life sustaining measures including risk factors. Pt is agreeable to complete a new POLST. Assisted Pt with completing new POLST. Pt's wishes are DNR and Limited Treatment. Pt expresses appreciation of visit and reports no other concerns at this time. Dr Chavez signs POLST. Sent copy of POLST to medical records, placed original and copy in Pt's chart. Original POLST to go home with Pt. Palliative Care will remain available.
--- NOTE | 2019-08-17 17:06 | NUR ---
SHIFT SUMMARY... NO ACUTE NEGATIVE CHANGES NOTED THIS SHIFT. PT'S VS HAVE BEEN STABLE T/O SHIFT. PT WAS MEDICATED FOR PAIN PER EMAR. PT IS TO D/C HOME WITH A TRILOGY BIPAP ONCE THE MACHINE ARRIVES. PT'S FAMILY HAS BEEN UPDATED AND IS AGREEABLE WITH THIS PLAN OF CARE. PT HAS BEEN UP IN THE RECLINER CHAIR ALL SHIFT. CALL LIGHT IN REACH WILL CONTINUE TO MONITOR UNTIL REPORT IS GIVEN TO ONCOMING RN.
--- NOTE | 2019-08-18 03:55 | NUR ---
SHIFT SUMMARY PT HAS BEEN MOSTLY A/O; FORGETFUL AT TIMES. LIFT HAS BEEN USED TO TRANSFER FROM CHAIR TO BED. BAJWA PATENT WITH STAT LOCK IN PLACE. PT HAS BEEN REPOSITIONED THROUGHOUT THE SHIFT. PT HAS BEEN USING 4L O2 NC DURING THE NIGHT AND O2 SAT HAS BEEN MID 90'S. SEE VS HX. BIOX HAS ALSO BEEN IN PLACE DURING THE SHIFT. BIPAP IS SET UP AT BEDSIDE HOWEVER PT DID NOT WANT TO WEAR IT DURING THE NIGHT. O2 SAT HAS REMAINED MID 90'S ON NC WHILE ASLEEP. HR HAS BEEN 60'S-80'S WHILE AWAKE BUT DROPS TO 45-55 WHILE ASLEEP. DISCUSSED WITH MANAGER MANAGED CARE. SEVEN. TELE IN PLACE. NO ACUTE CHANGES DURING THE NIGHT. PT CURRENTLY ASLEEP.
[2019-08-18] MEDS ORDERED: VISBIOME 112.51 EACH PO (13:33)
[2019-08-18] MEDS ORDERED: SULTRIDS PO (13:33)
--- NOTE | 2019-08-18 16:21 | NUR ---
PT LEFT FLOOR W/ TRANSPORT AT 1530 TO GO HOME W/ ALL PERSONAL POSSESSIONS INCLUDING DISCHARGE PACKET, ORIGINAL POLST; [facility] CHECKED IN, AGREED TO DELIVERY TRILOGY & LIFT EQUIPMENT TO [facility]. DC INSTRUCTIONS REVIEWED W/ PT, STATED UNDERSTANDING. DRESSINGS CHANGED & PICC LINE REMOVED PRIOR TO DISCHARGE.
== END 2019-08-18 15:36 | disposition home or self-care (01) | DRG 207 ==
LOC: ER 17:50 → ICUE 21:40 → PCU 21:40 → ICUE 23:38 → PCU 08-11 18:14
PROVIDERS: Emergency Medicine; Internal Medicine; Internal Medicine Critical Care Medicine; Internal Medicine Pulmonary Disease; Nurse Practitioner Acute Care; Pharmacist; ADMIT Family Medicine
PROC: 5A1955Z Respiratory Ventilation, Greater than 96 Consecutive Hours (ICD-10-PCS; principal; 2019-07-27)
PROC: 0BH17EZ Insertion of Endotracheal Airway into Trachea, Via Natural or Artificial Opening (ICD-10-PCS; 2019-07-27)
DX: J18.9 Pneumonia, unspecified organism (principal); J96.22 Acute and chronic respiratory failure with hypercapnia; J96.21 Acute and chronic respiratory failure with hypoxia; I50.33 Acute on chronic diastolic (congestive) heart failure; J44.0 Chronic obstructive pulmonary disease with (acute) lower respiratory infection; J44.1 Chronic obstructive pulmonary disease with (acute) exacerbation; E66.2 Morbid (severe) obesity with alveolar hypoventilation; L03.115 Cellulitis of right lower limb; I48.92 Unspecified atrial flutter; Z68.42 Body mass index [BMI] 45.0-49.9, adult; Z99.81 Dependence on supplemental oxygen; Z89.612 Acquired absence of left leg above knee; E11.40 Type 2 diabetes mellitus with diabetic neuropathy, unspecified; I11.0 Hypertensive heart disease with heart failure; G47.33 Obstructive sleep apnea (adult) (pediatric); E11.51 Type 2 diabetes mellitus with diabetic peripheral angiopathy without gangrene; Z79.82 Long term (current) use of aspirin; E78.5 Hyperlipidemia, unspecified; Z79.4 Long term (current) use of insulin; D64.9 Anemia, unspecified; R13.10 Dysphagia, unspecified; F17.210 Nicotine dependence, cigarettes, uncomplicated
CPT/HCPCS: 0099U; 31500; 31720; 36415; 36569; 36600; 51702; 71045; 74230; 80048; 80053; 80069; 80202; 81001; 82330; 82565; 82803; 82947; 83605; 83735; 83880; 84100; 84145; 84439; 84443; 84481; 85025; 85027; 87040; 87070; 87077; 87086; 87147; 87186; 87205; 92526; 92610; 92611; 93005; 93010; 93971; 94002; 94003; 94640; 94644; 94660; 94762; 96374-59; 96375-59; 97110; 97162; 97166; 97530; 97535; 99285-25; A9270; A9270-GY; C1751; C8929; J0171; J0330; J0690; J0692; J0696; J0713; J1650; J1815; J1940; J2060; J2704; J2930; J2997; J3010; J3370; J3475; J3480; J7040; J7050; J7060; J7120; J7799; Q9957; U0003

== ENCOUNTER 2019-09-07 19:18 | Emergency (ER) | payer MEDICARE, OTHER ==
[~2019-09-07] VITALS: Ht 177.8 cm; Wt 125.6 kg
[~2019-09-07 19:18] MED LIST changes: +BASAGLAR K100 UNIT/1; +Cymbalta30 MG PO; +FUROSEMIDE40 MG PO
[2019-09-07 19:55] LABS: Hematocrit 33.9 % (37.0-53.0); Hemoglobin 9.7 g/dL (13.5-17.5); Mean Corpuscular HGB 25.4 pg (26.0-34.0); Mean Corpuscular HGB Conc 28.6 g/dL (31.5-36.5); Mean Corpuscular Volume 89 fL (80-100); Mean Platelet Volume 8.9 fL (9.1-12.4); Platelet Count 257 K/mm3 (150-400); RDW Coefficient Variation 15.8 % (11.7-14.2); Red Blood Cell Count 3.82 M/mm3 (4.30-5.90); White Blood Cell Count 6.42 K/mm3 (4.00-11.30)
[2019-09-07 20:16] LABS: Alanine Aminotransfer (ALT/SGP 14 U/L (12-78); Albumin, Blood 2.3 g/dL (3.4-5.0); Albumin/Globulin Ratio 0.5 (0.8-1.8); Alk Phos 117 U/L (50-136); Anion Gap 4 mmol/L (6-16); Aspartate Aminotrans (AST/SGOT 10 U/L (12-37); Bilirubin, Total 0.6 mg/dL (0.1-1.0); Blood Urea Nitrogen 11 mg/dL (8-24); Bun/Creatinine Ratio 26.9 (12.0-20.0); CO2, Blood 38 mmol/L (21-32); Calcium, Blood 8.3 mg/dL (8.5-10.1); Chloride, Blood 97 mmol/L (98-108); Creatinine, Blood 0.41 mg/dL (0.60-1.20); Globulin, Blood 4.4 g/dL (2.2-4.0); Glomerular Filtration Rate >60 (60-); Glucose, Blood 180 mg/dL (70-99); Potassium, Blood 3.9 mmol/L (3.5-5.5); Sodium, Blood 139 mmol/L (136-145); Total Protein, Blood 6.7 g/dL (6.4-8.2); Troponin I <0.015 ng/mL (0.000-0.040)
[2019-09-07 20:17] LABS: BAND PERCENT MAN 14 % (0-8); BASOPHILS ABSOLUTE MAN 0.06 K/mm3 (0.00-0.23); BASOPHILS PERCENT MAN 1 % (0-2); EOSINOPHILS ABSOLUTE MAN 0.12 K/mm3 (0.00-0.68); EOSINOPHILS PERCENT MAN 2 % (0-6); LYMPHOCYTES ABSOLUTE MAN 0.44 K/mm3 (0.84-5.20); LYMPHOCYTES PERCENT MAN 7 % (21-46); MONOCYTES ABSOLUTE MAN 0.32 K/mm3 (0.16-1.47); MONOCYTES PERCENT MAN 5 % (4-13); NEUTROPHILS ABSOLUTE MAN 5.45 K/mm3 (1.96-9.15); SEG NEUTROPHILS PERCENT MAN 71 % (41-73); TOTAL CELLS COUNTED 100
== END 2019-09-07 22:23 | disposition home or self-care (01) ==
LOC: ER 19:18
PROVIDERS: Physician Assistant
DX: J44.1 Chronic obstructive pulmonary disease with (acute) exacerbation (principal); I50.30 Unspecified diastolic (congestive) heart failure; E11.9 Type 2 diabetes mellitus without complications; F17.210 Nicotine dependence, cigarettes, uncomplicated; Z88.5 Allergy status to narcotic agent; Z79.899 Other long term (current) drug therapy; Z79.4 Long term (current) use of insulin; Z99.81 Dependence on supplemental oxygen
CPT/HCPCS: 36415; 71045; 80053; 83880; 84484; 85025; 93005; 93010; 94640; 96374; 99285-25; J1940

== ENCOUNTER 2019-10-30 13:37 | Inpatient (IN) | payer OTHER, MEDICARE ==
[~2019-10-30] VITALS: Ht 177.8 cm; Wt 137.0 kg
[~2019-10-30 13:37] MED LIST changes: +AMOCLA500 PO; -BASAGLAR K100 UNIT/1; +BASAGLAR K100 UNIT/1 SC; +Chest Congesti400 MG PO; +FLUT.05NI; +NICO21TP TOP; +Norco 5-325 Ta1 EACH PO; +Vitamin B Comple1 EA PO
[2019-10-30 14:27] LABS: BASOPHILS ABSOLUTE AUTO 0.04 K/mm3 (0.00-0.23); BASOPHILS PERCENT AUTO 1 % (0-2); EOSINOPHILS ABSOLUTE AUTO 0.09 K/mm3 (0.00-0.68); EOSINOPHILS PERCENT AUTO 1 % (0-6); Hematocrit 38.6 % (37.0-53.0); IMMATURE GRAN ABSOLUTE AUTO 0.04 K/mm3 (0.00-0.10); IMMATURE GRAN PERCENT AUTO 1 % (0-1); LYMPHOCYTES ABSOLUTE AUTO 0.62 K/mm3 (0.84-5.20); LYMPHOCYTES PERCENT AUTO 7 % (21-46); MONOCYTES ABSOLUTE AUTO 0.51 K/mm3 (0.16-1.47); MONOCYTES PERCENT AUTO 6 % (4-13); Mean Corpuscular HGB 25.8 pg (26.0-34.0); Mean Corpuscular HGB Conc 28.5 g/dL (31.5-36.5); Mean Corpuscular Volume 90 fL (80-100); Mean Platelet Volume 9.7 fL (9.1-12.4); NEUTROPHILS ABSOLUTE AUTO 7.48 K/mm3 (1.96-9.15); NEUTROPHILS PERCENT AUTO 85 % (41-73); Platelet Count 267 K/mm3 (150-400); RDW Coefficient Variation 17.5 % (11.7-14.2); RDW Standard Deviation 58.5 fL (35.1-46.3); Red Blood Cell Count 4.27 M/mm3 (4.30-5.90); White Blood Cell Count 8.78 K/mm3 (4.00-11.30)
[2019-10-30 14:52] LABS: Base Excess Venous 18.6 mmol/L; Bicarbonate Venous 39.4 mmol/L (24.0-30.0); PCO2 Venous 83.4 mmHg (38-42); PO2 Venous 99.8 mmHg (38-42); pH Blood Venous 7.34 (7.34-7.37)
[2019-10-30 14:59] LABS: Alanine Aminotransfer (ALT/SGP 19 U/L (12-78); Albumin, Blood 2.7 g/dL (3.4-5.0); Albumin/Globulin Ratio 0.5 (0.8-1.8); Alk Phos 140 U/L (50-136); Anion Gap 3 mmol/L (6-16); Aspartate Aminotrans (AST/SGOT 7 U/L (12-37); Bilirubin, Total 0.3 mg/dL (0.1-1.0); Blood Urea Nitrogen 12 mg/dL (8-24); CO2, Blood 41 mmol/L (21-32); Calcium, Blood 8.4 mg/dL (8.5-10.1); Chloride, Blood 94 mmol/L (98-108); Creatinine, Blood 0.44 mg/dL (0.60-1.20); Glomerular Filtration Rate >60 (60-); Glucose, Blood 263 mg/dL (70-99); Potassium, Blood 4.2 mmol/L (3.5-5.5); Sodium, Blood 138 mmol/L (136-145); Total Protein, Blood 7.7 g/dL (6.4-8.2); Troponin I <0.015 ng/mL (0.000-0.040)
--- NOTE | 2019-10-30 18:12 | NUR ---
PT ARRIVES TO PCU ON BIPAP, SETTINGS 14/7 WITH 35% FIO2. HE IS AWAKE AND TALKING TO STAFF. RESPIRATIONS 24-30 PER MINUTE. EXCORIATION TO COCCYX NOTED. METER SETTER AT BEDSIDE AT THIS TIME.
[2019-10-30 22:33] LABS: Adenovirus Not Detected (NOT DETECT); Bordetella pertussis Not Detected (NOT DETECT); Chlamydophila pneumoniae Not Detected (NOT DETECT); Coronavirus 229E Not Detected (NOT DETECT); Coronavirus HKU1 Not Detected (NOT DETECT); Coronavirus NL63 Not Detected (NOT DETECT); Coronavirus OC43 Not Detected (NOT DETECT); Human Metapneumovirus Not Detected (NOT DETECT); Human Rhinovirus/Enterovirus Not Detected (NOT DETECT); Influenza A/2009-H1 Not Detected (NOT DETECT); Influenza A/H1 Not Detected (NOT DETECT); Influenza A/H3 Not Detected (NOT DETECT); Influenza B Not Detected (NOT DETECT); Mycoplasma pneumoniae Not Detected (NOT DETECT); Parainfluenza Virus 1 Not Detected (NOT DETECT); Parainfluenza Virus 2 Not Detected (NOT DETECT); Parainfluenza Virus 3 Not Detected (NOT DETECT); Parainfluenza Virus 4 Not Detected (NOT DETECT); Respiratory Syncytial Virus Not Detected (NOT DETECT)
[2019-10-30 23:59] LABS: Source, Urine Catheter
[2019-10-31 00:14] LABS: Appearance, Urine Cloudy (Clear); Bilirubin, Urine Neg (Neg); Blood, Urine 4+ (Neg); Color, Urine Yellow (P-Yellow); Glucose Qualitative, Urine Neg (Neg); Ketones, Urine 1+ (Neg); Leukocyte Esterase, Urine 2+ (Neg); Nitrite, Urine Neg (Neg); Protein, Urine 3+ (Neg); Urobilinogen, Urine 2+ (Normal)
[2019-10-31 00:29] LABS: Bacteria Mod /hpf; Red Blood Cells, Urine 25-50 /hpf (0-2); Squamous Epithelial Cells Rare /hpf (Few)
[2019-10-31 00:30] LABS: Mucus Mod (0-Heavy)
[2019-10-31 04:13] LABS: BASOPHILS ABSOLUTE AUTO 0.01 K/mm3 (0.00-0.23); BASOPHILS PERCENT AUTO 0 % (0-2); EOSINOPHILS PERCENT AUTO 0 % (0-6); Hematocrit 34.4 % (37.0-53.0); IMMATURE GRAN ABSOLUTE AUTO 0.02 K/mm3 (0.00-0.10); IMMATURE GRAN PERCENT AUTO 0 % (0-1); LYMPHOCYTES ABSOLUTE AUTO 0.28 K/mm3 (0.84-5.20); LYMPHOCYTES PERCENT AUTO 5 % (21-46); MONOCYTES ABSOLUTE AUTO 0.03 K/mm3 (0.16-1.47); MONOCYTES PERCENT AUTO 1 % (4-13); Mean Corpuscular HGB 25.8 pg (26.0-34.0); Mean Corpuscular HGB Conc 29.1 g/dL (31.5-36.5); Mean Corpuscular Volume 89 fL (80-100); Mean Platelet Volume 9.4 fL (9.1-12.4); NEUTROPHILS ABSOLUTE AUTO 5.31 K/mm3 (1.96-9.15); NEUTROPHILS PERCENT AUTO 94 % (41-73); Platelet Count 225 K/mm3 (150-400); RDW Coefficient Variation 17.2 % (11.7-14.2); RDW Standard Deviation 55.8 fL (35.1-46.3); Red Blood Cell Count 3.87 M/mm3 (4.30-5.90); White Blood Cell Count 5.65 K/mm3 (4.00-11.30)
--- NOTE | 2019-10-31 04:20 | NUR ---
SHIFT SUMMARY: PATIENT ADMISSION COMPLETED, PATIENT CONFUSED, UNCOOPERATIVE AND POOR HISTORIAN. PATIENT PULLING OFF BIPAP AND TRYING TO GET OOB, NURSE ROUNDING INCREASED, BED LOW AND LOCKED, NURSE OUTSIDE OF PATIENTS ROOM. PATIENT HAS CHRONIC INDWELLING BAJWA, UA SENT PER PROTOCOL. PATIENTS HEART RHYTHM SEEMS TO BE SWITCHING BETWEEN AFIB/FLUTTER AND NSR OCCASIONALLY. PATIENT UNABLE TO TAKE ORAL PM MEDICATIONS HE WOULD NOT STAY AWAKE AND WAS AN ASPIRATION RISK AT THAT POINT. ALL OTHER VSS, CALL LIGHT WITHIN REACH, BED EXIT ALARM ON.
[2019-10-31 04:32] LABS: Anion Gap 2 mmol/L (6-16); Blood Urea Nitrogen 13 mg/dL (8-24); Bun/Creatinine Ratio 33.8 (12.0-20.0); CO2, Blood 40 mmol/L (21-32); Calcium, Blood 8.5 mg/dL (8.5-10.1); Chloride, Blood 96 mmol/L (98-108); Creatinine, Blood 0.39 mg/dL (0.60-1.20); Glomerular Filtration Rate >60 (60-); Glucose, Blood 254 mg/dL (70-99); Potassium, Blood 4.1 mmol/L (3.5-5.5); Sodium, Blood 138 mmol/L (136-145)
[2019-10-31 04:32] LABS: Base Excess Venous 16.9 mmol/L; Bicarbonate Venous 39.1 mmol/L (24.0-30.0); PCO2 Venous 47.4 mmHg (38-42); PO2 Venous 151 mmHg (38-42)
[2019-10-31 04:33] LABS: pH Blood Venous 7.53 (7.34-7.37)
--- NOTE | 2019-10-31 07:23 | NUR ---
PATIENT SLEEPING COMFORTABLY IN BED, NO SIGNS OF ACUTE DISTRESS. BIPAP APPLIED, WCTM.
[2019-10-31 12:21] LABS: Base Excess Venous 19.5 mmol/L; Bicarbonate Venous 40.2 mmol/L (24.0-30.0); PCO2 Venous 63.7 mmHg (38-42); pH Blood Venous 7.44 (7.34-7.37)
--- NOTE | 2019-10-31 18:05 | NUR ---
NO ACUTE EVENTS THIS SHIFT. VSS, PATIENT IN A FLUTTER THIS SHIFT. PATIENT'S VpH TRENDED IN CORRECT DIRECTION THIS SHIFT, 7.44 FROM 7.53. PATIENT ON BIPAP MOST OF FIRST HALF OF SHIFT, TRANSITIONED TO HIGH FLOW NASAL CANNULA TOLERATED. RT ADJUSTED BIPAP SETTINGS AND STARTED FLUTTER USE TODAY. PLAN IS TO CONTINUE IV ABX FOR SUSPECTED UTI.
--- NOTE | 2019-10-31 19:18 | NUR ---
RELINQUISHED PATIENT CARE.
[2019-11-01 03:46] LABS: Base Excess Venous 18.5 mmol/L; Bicarbonate Venous 40.1 mmol/L (24.0-30.0); PCO2 Venous 55.1 mmHg (38-42); pH Blood Venous 7.49 (7.34-7.37)
[2019-11-01 03:55] LABS: BASOPHILS ABSOLUTE AUTO 0.01 K/mm3 (0.00-0.23); BASOPHILS PERCENT AUTO 0 % (0-2); EOSINOPHILS PERCENT AUTO 0 % (0-6); Hematocrit 37.1 % (37.0-53.0); Hemoglobin 10.6 g/dL (13.5-17.5); IMMATURE GRAN ABSOLUTE AUTO 0.03 K/mm3 (0.00-0.10); IMMATURE GRAN PERCENT AUTO 0 % (0-1); LYMPHOCYTES ABSOLUTE AUTO 0.26 K/mm3 (0.84-5.20); LYMPHOCYTES PERCENT AUTO 3 % (21-46); MONOCYTES ABSOLUTE AUTO 0.21 K/mm3 (0.16-1.47); MONOCYTES PERCENT AUTO 3 % (4-13); Mean Corpuscular HGB 25.7 pg (26.0-34.0); Mean Corpuscular HGB Conc 28.6 g/dL (31.5-36.5); Mean Corpuscular Volume 90 fL (80-100); Mean Platelet Volume 9.7 fL (9.1-12.4); NEUTROPHILS ABSOLUTE AUTO 7.09 K/mm3 (1.96-9.15); NEUTROPHILS PERCENT AUTO 93 % (41-73); Platelet Count 240 K/mm3 (150-400); RDW Coefficient Variation 17.2 % (11.7-14.2); RDW Standard Deviation 56.9 fL (35.1-46.3); Red Blood Cell Count 4.12 M/mm3 (4.30-5.90)
[2019-11-01 04:12] LABS: Albumin, Blood 2.5 g/dL (3.4-5.0); Anion Gap 2 mmol/L (6-16); Blood Urea Nitrogen 24 mg/dL (8-24); Bun/Creatinine Ratio 46.4 (12.0-20.0); CO2, Blood 39 mmol/L (21-32); Calcium, Blood 9.2 mg/dL (8.5-10.1); Chloride, Blood 96 mmol/L (98-108); Creatinine, Blood 0.52 mg/dL (0.60-1.20); Glomerular Filtration Rate >60 (60-); Glucose, Blood 313 mg/dL (70-99); Phosphorus, Blood 3.9 mg/dL (2.5-4.9); Potassium, Blood 4.4 mmol/L (3.5-5.5); Sodium, Blood 137 mmol/L (136-145)
--- NOTE | 2019-11-01 05:21 | NUR ---
SHIFT SUMMARY PT SLEEPING IN ROOM COMFORTABLY AT THIS TIME. NO ACUTE CHANGES IN STATUS T/O NIGHT. PT SLEPT WELL AND WORE CPAP FOR MAJORITY OF NIGHT TOLERATED WELL. PT WAS AXO4 AND ANSWERED QUESTIONS APPROPRIATELY. SATS >92% ON HIFLOW NC AT 9L AND CPAP. PT DENIED ANY CP, DID REPORT SOME MINOR ACHES AND PAINS DURING NIGHT AND CALLED ONCE FOR PAIN MEDS. PT WAS MEDICATED PER EMAR. DENIED OTHER NEEDS. CALL LIGHT IN REACH.
--- NOTE | 2019-11-01 08:00 | NUR ---
pt laying in bed on the phone, a/ox3, cooperative with care, follows commands well, denies pain, states he's doing ok, lungs are course, dim t/o, resp evne and unlabored, no cough noted, hrr, tele in place running aflutter in the 50's, iv site to rfa site clear and patent, btx4, abd flat soft nontender, aguilar cath draining clear yellow urine, skin has some pressure wounds to coccyx, but pt refuses to turn, will do more education, nena, general weakness, samantha, call light in reach.
--- NOTE | 2019-11-01 12:56 | NUR ---
pt sitting up eating lunch. seems rather flat, but talks on the phone, RT in room working with him. call light in reach.
--- NOTE | 2019-11-01 13:07 | NUR ---
Met pt. in bed and his nurse in the room, attending to his needs , pt. reports doing much better encouraged pt. and offered prayers .
--- NOTE | 2019-11-01 18:09 | NUR ---
PT HAS BEEN REFUSING TO BE TURNED SINCE THIS AM. STATES HE'S DOING OK, NO NEEDS OR COMPLAINTS, DR. KENNEY IN TO SEE HIM. NO ACUTE CHANGES THIS SHIFT. CALL LIGHT IN REACH.
--- NOTE | 2019-11-02 06:11 | NUR ---
SHIFT SUMMARY PT SLEEPING IN ROOM COMFORTABLY AT THIS TIME. NO ACUTE CHANGES IN STATUS T/O NIGHT. PT SLEPT WELL DENIED ANY CP OR SOB. PT DID CHEST PHYSIOTHERAPY WITH RT, AND WORE CPAP T/O NIGHT AND TOLERATED WELL. SATS >92% ON CPAP. DENIED OTHER NEEDS. PT DID NOT ASK FOR PAIN MEDS DURING NIGHT. PT REFUSED TURNS T/O NIGHT. DID ALLOW ADAPTED PHYSICAL EDUCATION AIDE TO TURN AND CHANGE ATTENDS ONCE DURING NIGHT. ADAPTED PHYSICAL EDUCATION AIDE NOTED MEPILEX WAS NEEDED TO BE CHANGED PT REFUSING AT THIS TIME. REPORTS WILL ALLOW AT NEXT CHANGE. PT DENIED OTHER NEEDS. CALL LIGHT IN REACH.
--- NOTE | 2019-11-02 07:23 | NUR ---
ASSUMED PATIENT CARE. PATIENT RESTING COMFORTABLY IN BED, CONVERSING WITH NURSING STAFF. RT AT BEDSIDE, NO SIGNS OF ACUTE DISTRESS, WCTM.
--- NOTE | 2019-11-02 17:53 | NUR ---
NO ACUTE EVENTS THIS SHIFT. [facility] BROUGHT IN NEW MASK/TUBING FOR PATIENT'S HOME BIPAP THAT IS AT BEDSIDE. PATIENT TO USE HOME BIPAP TONIGHT. PATIENT ABLE TO TOLERATE BEING ON HIGH FLOW NASAL CANNULA AT 5-6 L THIS SHIFT. BLOOD SUGARS TRENDING IN 300S, DR. MACK NOTIFIED AND INSULIN REGIMEN ADJUSTED. PATIENT IS ALERT AND ORIENTED THIS SHIFT, ABLE TO ASSIST IN REPOSITIONING IN BED.
--- NOTE | 2019-11-02 19:16 | NUR ---
RELINQUISHED PATIENT CARE.
[2019-11-03 03:43] LABS: Base Excess Venous 20.6 mmol/L; Bicarbonate Venous 41.2 mmol/L (24.0-30.0); PCO2 Venous 67.3 mmHg (38-42); PO2 Venous 48.9 mmHg (38-42); pH Blood Venous 7.43 (7.34-7.37)
[2019-11-03 04:18] LABS: BASOPHILS PERCENT AUTO 0 % (0-2); EOSINOPHILS PERCENT AUTO 0 % (0-6); Hematocrit 39.3 % (37.0-53.0); Hemoglobin 11.2 g/dL (13.5-17.5); IMMATURE GRAN ABSOLUTE AUTO 0.03 K/mm3 (0.00-0.10); IMMATURE GRAN PERCENT AUTO 0 % (0-1); LYMPHOCYTES ABSOLUTE AUTO 0.25 K/mm3 (0.84-5.20); LYMPHOCYTES PERCENT AUTO 3 % (21-46); MONOCYTES ABSOLUTE AUTO 0.36 K/mm3 (0.16-1.47); MONOCYTES PERCENT AUTO 5 % (4-13); Mean Corpuscular HGB 25.3 pg (26.0-34.0); Mean Corpuscular HGB Conc 28.5 g/dL (31.5-36.5); Mean Corpuscular Volume 89 fL (80-100); Mean Platelet Volume 9.4 fL (9.1-12.4); NEUTROPHILS ABSOLUTE AUTO 6.83 K/mm3 (1.96-9.15); NEUTROPHILS PERCENT AUTO 92 % (41-73); Platelet Count 249 K/mm3 (150-400); RDW Coefficient Variation 16.6 % (11.7-14.2); RDW Standard Deviation 54.7 fL (35.1-46.3); Red Blood Cell Count 4.42 M/mm3 (4.30-5.90); White Blood Cell Count 7.47 K/mm3 (4.00-11.30)
[2019-11-03 04:33] LABS: Anion Gap 1 mmol/L (6-16); Blood Urea Nitrogen 29 mg/dL (8-24); Bun/Creatinine Ratio 51.3 (12.0-20.0); CO2, Blood 42 mmol/L (21-32); Calcium, Blood 8.7 mg/dL (8.5-10.1); Chloride, Blood 91 mmol/L (98-108); Creatinine, Blood 0.57 mg/dL (0.60-1.20); Glomerular Filtration Rate >60 (60-); Glucose, Blood 341 mg/dL (70-99); Potassium, Blood 4.4 mmol/L (3.5-5.5); Sodium, Blood 134 mmol/L (136-145)
--- NOTE | 2019-11-03 05:24 | NUR ---
SHIFT SUMMARY PT SLEEPING IN ROOM COMFORTABLY AT THIS TIME. NO ACUTE CHANGES IN STATUS T/O NIGHT. PT SLEPT WELL DENIED ANY CP OR SOB. PT ASKED FOR PAIN MEDS ONCE DURING NIGHT. BAJWA CATH CLOGGED UNABLE TO FLUSH, URINE LEAKING AROUND CATH. CATH REMOVED AND NEW CATH PLACED, AND FULL LINENE CHANGE DONE. NEW MEPILEX PLACED ON SORE TO BOTTUCKS. RESP EVEN UNLABORED ON 5L NC SATS >92%. PT WORE CPAP MOST OF THE NIGHT. DENIED OTHER NEEDS. CALL LIGHT WITHIN REACH.
--- NOTE | 2019-11-03 09:00 | NUR ---
PT LAYING IN BED AWAKE A/OX3, COOPERATIVE WITH CARE, FOLLOWS COMMANDS WELL, DENIES PAIN AT THIS TIME, STATES HE SLEPT OK, LUNGA ARE A BIT COURSE, WITH SOME OCC WHEEZING T/O, RESP EVEN AND UNLABORED, NO COUGH NOTED, HRR, TELE IN PLACE RUNNING AFLUTTER PER MONITOR, SEE NOEL WILLIS, IV SITE TO RFA SITE IS CLEAR AND PATENT, S.L. BTX4, ABD LARGE SOFT NONTENDER, BAJWA CATH DRAINING YELLOW URINE, SKIN HAS WOUNDS TO BUTTOCKS, HAS BEEN REFUSING TO BE TURNED, BUT DID ALLOW US TO TURN HIM THIS AM, MOVES UPPER EXT WELL, RYAN, CALL LIGHT IN REACH.
--- NOTE | 2019-11-03 12:16 | NUR ---
DR. MACK IN TO SEE PT. CHANGED HIM TO MEDICAL STATUS, NO NEEDS OR CHANGES. ONLY THING PT WANTED WAS COFFEE, THIS WAS GIVEN, CALL LIGHT IN REACH.
--- NOTE | 2019-11-03 21:29 | NUR ---
ASSUMED CARE OF PATIENT AT APPROXIMATELY 1905 FROM SABINA Mcintyre RN. PATIENT ALERT AND ORIENTED X4; WEAK; BEDREST; Q2H TURNS; ASSIST WITH TURNS; REFUSED TURNS AT TIMES. PATIENT REPORTED PAIN IN HIS BACK; MEDICATED PER EMAR AND REPOSISTIONED; L AKA. MEDICAL NO TELE STATUS; OXYGEN SATURATION ABOVE 90% ON 5LPM VIA NC (BASELINE): HOME BIPAP IN ROOM. REPORTS HE IS GOING HOME IN AM. PIV S/L. URINARY CATH PATENT. ATTENDS IN PLACE. LIFT PATIENT. PATIENT CURRENTLY RESTING IN BED; CALL LIGHT IN REACH; BED IN LOWEST POSISTION; WILL CONTINUE TO MONITOR AND ASSESS UNTIL END OF SHIFT.
--- NOTE | 2019-11-04 06:14 | NUR ---
PATIENT SLEPT ABOUT NINE HOURS LAST NIGHT. VSS. WILL CONTINUE TO MONITOR AND ASSESS UNTIL END OF SHIFT.
--- NOTE | 2019-11-04 08:00 | NUR ---
pt laying in bed, states he slept ok last night, doing ok, no complaints, he is down to his baseline, lungs are dim t/o, no cough noted, hrirr, tele in place running afib per monitor, see strip, no edema noted, ppp+2, cap refill <3 sec, vs stable, afebrile, iv site is clear and patent, to rfa, btx4, abd large soft nontender, voids via chronic aguilar cath draining yellow urine with sediment, skin has pressure sore to buttocks, laka, moves upper ext well, samantha. call light in reach.
[2019-11-04] MEDS ORDERED: N-ACETYL-L-CYS600 MG PO (12:48)
[2019-11-04] MEDS ORDERED: LEVOFLOXACIN750 M1 PO (12:49)
[2019-11-04] MEDS ORDERED: NYAMYC15 G1 TOP (12:50)
[2019-11-04] MEDS ORDERED: DELTASONE20 MG PO (12:54)
[2019-11-04] MEDS ORDERED: VISBIOME PO (13:01)
--- NOTE | 2019-11-04 15:40 | NUR ---
PT HAS BEEN DISCHARGED TO HOME, NEW MEDICATIONS WERE CALLED INTO [facility] THE [facility] ISN'T OPEN TODAY. IV REMOVED INTACT. ALL HIS BELONGINGS WERE BAGGED UP FOR HIM, LEFT FOR HOME VIA CART WITH TRANSPORT IN ATTENDENCE.
== END 2019-11-04 15:36 | disposition home or self-care (01) | DRG 189 ==
LOC: ER 13:37 → PCU 16:00
PROVIDERS: Emergency Medicine; Internal Medicine; Internal Medicine Critical Care Medicine; ADMIT Family Medicine
PROC: 5A09457 Assistance with Respiratory Ventilation, 24-96 Consecutive Hours, Continuous Positive Airway Pressure (ICD-10-PCS; principal; 2019-10-30)
DX: J96.21 Acute and chronic respiratory failure with hypoxia (principal); R65.11 Systemic inflammatory response syndrome (SIRS) of non-infectious origin with acute organ dysfunction; J44.1 Chronic obstructive pulmonary disease with (acute) exacerbation; E66.2 Morbid (severe) obesity with alveolar hypoventilation; I50.32 Chronic diastolic (congestive) heart failure; J98.11 Atelectasis; Z20.828 Contact with and (suspected) exposure to other viral communicable diseases; E11.9 Type 2 diabetes mellitus without complications; J96.22 Acute and chronic respiratory failure with hypercapnia; I11.0 Hypertensive heart disease with heart failure; Z66 Do not resuscitate; D64.9 Anemia, unspecified; Z96.0 Presence of urogenital implants; F17.210 Nicotine dependence, cigarettes, uncomplicated; Z99.81 Dependence on supplemental oxygen; Z89.612 Acquired absence of left leg above knee; Z79.4 Long term (current) use of insulin; Z79.82 Long term (current) use of aspirin; Z79.51 Long term (current) use of inhaled steroids; Z68.35 Body mass index [BMI] 35.0-35.9, adult
CPT/HCPCS: 0099U; 36415; 51702; 71045; 80048; 80053; 80069; 81001; 82803; 82947; 83605; 83880; 84145; 84484; 85025; 85379; 87040; 87070; 87077; 87086; 87186; 87205; 93005; 93010; 94640; 94660; 94667; 94668; 94762; 96374; 96375; 99285-25; A9270; A9270-GY; J0696; J1650; J1815; J2930; U0002

== ENCOUNTER 2020-01-02 04:31 | Inpatient (IN) | payer OTHER, MEDICARE ==
[~2020-01-02] VITALS: Ht 177.8 cm; Wt 127.3 kg
[~2020-01-02 04:31] MED LIST changes: +DELTASONE20 MG PO; +LEVOFLOXACIN750 M1 PO; +N-ACETYL-L-CYS600 MG PO; +NYAMYC15 G1 TOP; +VISBIOME PO
[2020-01-02 04:57] LABS: BASOPHILS ABSOLUTE AUTO 0.03 K/mm3 (0.00-0.23); BASOPHILS PERCENT AUTO 0 % (0-2); EOSINOPHILS ABSOLUTE AUTO 0.01 K/mm3 (0.00-0.68); EOSINOPHILS PERCENT AUTO 0 % (0-6); Hematocrit 35.2 % (37.0-53.0); Hemoglobin 10.6 g/dL (13.5-17.5); IMMATURE GRAN ABSOLUTE AUTO 0.06 K/mm3 (0.00-0.10); IMMATURE GRAN PERCENT AUTO 1 % (0-1); LYMPHOCYTES ABSOLUTE AUTO 0.89 K/mm3 (0.84-5.20); LYMPHOCYTES PERCENT AUTO 7 % (21-46); MONOCYTES ABSOLUTE AUTO 0.75 K/mm3 (0.16-1.47); MONOCYTES PERCENT AUTO 6 % (4-13); Mean Corpuscular HGB 25.9 pg (26.0-34.0); Mean Corpuscular HGB Conc 30.1 g/dL (31.5-36.5); Mean Corpuscular Volume 86 fL (80-100); Mean Platelet Volume 9.3 fL (9.1-12.4); NEUTROPHILS ABSOLUTE AUTO 10.99 K/mm3 (1.96-9.15); NEUTROPHILS PERCENT AUTO 86 % (41-73); Platelet Count 297 K/mm3 (150-400); RDW Coefficient Variation 15.4 % (11.7-14.2); Red Blood Cell Count 4.09 M/mm3 (4.30-5.90); White Blood Cell Count 12.73 K/mm3 (4.00-11.30)
[2020-01-02 05:16] LABS: Alanine Aminotransfer (ALT/SGP 12 U/L (12-78); Albumin, Blood 2.3 g/dL (3.4-5.0); Albumin/Globulin Ratio 0.5 (0.8-1.8); Alk Phos 109 U/L (50-136); Anion Gap 4 mmol/L (6-16); Aspartate Aminotrans (AST/SGOT 12 U/L (12-37); Bilirubin, Total 0.4 mg/dL (0.1-1.0); Blood Urea Nitrogen 14 mg/dL (8-24); Bun/Creatinine Ratio 36.8 (12.0-20.0); CO2, Blood 38 mmol/L (21-32); Calcium, Blood 9.2 mg/dL (8.5-10.1); Chloride, Blood 93 mmol/L (98-108); Creatinine, Blood 0.38 mg/dL (0.60-1.20); Globulin, Blood 4.6 g/dL (2.2-4.0); Glomerular Filtration Rate >60 (60-); Glucose, Blood 292 mg/dL (70-99); Sodium, Blood 135 mmol/L (136-145); Total Protein, Blood 6.9 g/dL (6.4-8.2); Troponin I <0.015 ng/mL (0.000-0.040)
[2020-01-02 12:48] LABS: Adenovirus Not Detected (NOT DETECT); Bordetella pertussis Not Detected (NOT DETECT); Chlamydophila pneumoniae Not Detected (NOT DETECT); Coronavirus 229E Not Detected (NOT DETECT); Coronavirus HKU1 Not Detected (NOT DETECT); Coronavirus NL63 Not Detected (NOT DETECT); Coronavirus OC43 Not Detected (NOT DETECT); Human Metapneumovirus Not Detected (NOT DETECT); Human Rhinovirus/Enterovirus Not Detected (NOT DETECT); Influenza A/2009-H1 Not Detected (NOT DETECT); Influenza A/H1 Not Detected (NOT DETECT); Influenza A/H3 Not Detected (NOT DETECT); Influenza B Not Detected (NOT DETECT); Mycoplasma pneumoniae Not Detected (NOT DETECT); Parainfluenza Virus 1 Not Detected (NOT DETECT); Parainfluenza Virus 2 Not Detected (NOT DETECT); Parainfluenza Virus 3 Not Detected (NOT DETECT); Parainfluenza Virus 4 Not Detected (NOT DETECT); Respiratory Syncytial Virus Not Detected (NOT DETECT); SARS-Cov-2 (COVID-19), BioFire Not Detected (NOT DETECT)
[2020-01-02 19:51] LABS: Source, Urine Catheter
--- NOTE | 2020-01-02 19:52 | NUR ---
SHIFT SUMMARY: ARRIVED TO MEDICAL FLOOR AT 1200. AROUSES TO LOUD SPEECH BUT FALLS RIGHT BACK TO SLEEP, DIFFICULT TO GET ADMISSION INFORMATION. LUNG SOUNDS ARE COARSE CRACKLES, VERY WET, NOT COUGHING AT THIS TIME. O2 AT 5 L/MIN, SWITCHED NC FOR OXYMIZER, SATS 91-94%. BAJWA CATHETER CHANGED PER POLICY, UA SENT. URINE IS BROWN, CLOUDY, AND VERY MALODOROUS. REQUIRED FULL BED BATH UPOPN ARRIVAL, WAS QUITE DIRTY AND MALODOROUS. HAS MANY AREAS OF SKIN BREAKDOWN, SEE PHOTOS IN CHART. AWOKE BRIEFLY TONIGHT, SPOKE TO FAMILY BY PHONE AND WENT BACK TO SLEEP. HOB KEPT > 30 DEGREES. IVF INFUSING, IS NPO.
[2020-01-02 19:57] LABS: Appearance, Urine Cloudy (Clear); Blood, Urine 5+ (Neg); Color, Urine Amber (P-Yellow); Glucose Qualitative, Urine 2+ (Neg); Ketones, Urine 2+ (Neg); Leukocyte Esterase, Urine 2+ (Neg); Nitrite, Urine Pos (Neg); Protein, Urine 3+ (Neg); Specific Gravity, Urine 1.025 (1.003-1.022); Urobilinogen, Urine 1+ (Normal)
[2020-01-02 20:03] LABS: Bilirubin, Urine 1+ (Neg)
[2020-01-02 20:04] LABS: Red Blood Cells, Urine TNTC /hpf (0-2); Squamous Epithelial Cells Few /hpf (Few)
[2020-01-02 20:05] LABS: Bacteria Many /hpf
--- NOTE | 2020-01-03 01:19 | NUR ---
Dr. Chaudhry notified of possitive blood cultures for the Pt of Gram + cocci in clusters. Also notified of possitive UA. Pt is presently on Rocephin 1 GM and Zithromax 500 mg p.o. daily. She states this is appropriate at this time.
[2020-01-03 05:24] LABS: BASOPHILS ABSOLUTE AUTO 0.01 K/mm3 (0.00-0.23); BASOPHILS PERCENT AUTO 0 % (0-2); EOSINOPHILS PERCENT AUTO 0 % (0-6); Hematocrit 36.9 % (37.0-53.0); IMMATURE GRAN ABSOLUTE AUTO 0.04 K/mm3 (0.00-0.10); IMMATURE GRAN PERCENT AUTO 1 % (0-1); LYMPHOCYTES ABSOLUTE AUTO 0.38 K/mm3 (0.84-5.20); LYMPHOCYTES PERCENT AUTO 4 % (21-46); MONOCYTES PERCENT AUTO 2 % (4-13); Mean Corpuscular HGB Conc 29.8 g/dL (31.5-36.5); Mean Corpuscular Volume 87 fL (80-100); Mean Platelet Volume 9.3 fL (9.1-12.4); NEUTROPHILS ABSOLUTE AUTO 7.99 K/mm3 (1.96-9.15); NEUTROPHILS PERCENT AUTO 93 % (41-73); Platelet Count 295 K/mm3 (150-400); RDW Coefficient Variation 15.3 % (11.7-14.2); RDW Standard Deviation 48.4 fL (35.1-46.3); Red Blood Cell Count 4.23 M/mm3 (4.30-5.90); White Blood Cell Count 8.62 K/mm3 (4.00-11.30)
[2020-01-03 05:44] LABS: Alanine Aminotransfer (ALT/SGP 13 U/L (12-78); Albumin, Blood 2.2 g/dL (3.4-5.0); Albumin/Globulin Ratio 0.5 (0.8-1.8); Alk Phos 94 U/L (50-136); Anion Gap 4 mmol/L (6-16); Aspartate Aminotrans (AST/SGOT 6 U/L (12-37); Bilirubin, Total 0.4 mg/dL (0.1-1.0); Blood Urea Nitrogen 17 mg/dL (8-24); Bun/Creatinine Ratio 46.4 (12.0-20.0); CO2, Blood 38 mmol/L (21-32); Calcium, Blood 9.4 mg/dL (8.5-10.1); Chloride, Blood 97 mmol/L (98-108); Creatinine, Blood 0.37 mg/dL (0.60-1.20); Globulin, Blood 4.3 g/dL (2.2-4.0); Glomerular Filtration Rate >60 (60-); Glucose, Blood 248 mg/dL (70-99); Potassium, Blood 3.9 mmol/L (3.5-5.5); Sodium, Blood 139 mmol/L (136-145); Total Protein, Blood 6.5 g/dL (6.4-8.2)
--- NOTE | 2020-01-03 07:16 | NUR ---
Rn summary: Patient is alert and oriented, more awake this evening than he was during the day. Pt awake and watching TV. Pt is on O2 5Liters via oximizer. Breath sounds are course in the bases. Has a productive cough with creamy thick sputum. Tele shows SR rate in the 70's. Pt has aguilar cath, urine is dk rolly. Groin is fire red, irritated. Pt has scaly yeast in Left axilla, side, fold and leg creases. Nystatin applied. Pt has been NPO. Pt had one positive and one no growth blood culture. UA results back, pls see results. IV's are patent. Pt does have a L AKA, could bennifit from a lift room. Call light is in reach. Report given to Kayla MAC.
--- NOTE | 2020-01-03 18:15 | NUR ---
SHIFT SUMMARY: NO ACUTE EVENTS THIS SHIFT. AFTER CPT THIS MORNING, BREATHING IS BETTER AND LUNG SOUNDS IMPROVED SLIGHTLY. STARTED ON VANCOMYCIN. IN BETTER SPIRITS, TALKED TO HIS KIDS ON THE PHONE SEVERAL TIMES THROUGHOUT THE DAY. GOOD APPETITE, DENIES NAUSEA. ON O2 AT 5 L/MIN, WHICH IS HIS BASELINE. SINUS RHYTHM ON TELEMETRY, HAS SINCE BEEN D/C'D. DENIED PAIN.
--- NOTE | 2020-01-04 04:49 | NUR ---
SHIFT SUMMARY: VSS. AFEB. AAOX3. ABLE TO COMMUNICATE NEEDS. 02 95% ON 4L VIA NC. RHONCHI AUSCULTATED THROUGHOUT B LOBES. PT REPORTS USING IS AND STATES HE PREFERS TO USE CHEST PERCUSSION VEST IN THE AM DUE TO INCREASED CHEST CONGESTION UPON WAKING. IV ABT INFUSED PER ORDERS. F/C PATENT AND DRAINING PEYTON COLORED URINE. NO ACUTE CONCERNS AT THIS TIME. WILL CONT TO MONITOR.
[2020-01-04 05:20] LABS: BASOPHILS ABSOLUTE AUTO 0.01 K/mm3 (0.00-0.23); BASOPHILS PERCENT AUTO 0 % (0-2); EOSINOPHILS PERCENT AUTO 0 % (0-6); Hematocrit 36.6 % (37.0-53.0); Hemoglobin 11.1 g/dL (13.5-17.5); IMMATURE GRAN ABSOLUTE AUTO 0.05 K/mm3 (0.00-0.10); IMMATURE GRAN PERCENT AUTO 1 % (0-1); LYMPHOCYTES ABSOLUTE AUTO 0.46 K/mm3 (0.84-5.20); LYMPHOCYTES PERCENT AUTO 5 % (21-46); MONOCYTES ABSOLUTE AUTO 0.24 K/mm3 (0.16-1.47); MONOCYTES PERCENT AUTO 3 % (4-13); Mean Corpuscular HGB 26.6 pg (26.0-34.0); Mean Corpuscular HGB Conc 30.3 g/dL (31.5-36.5); Mean Corpuscular Volume 88 fL (80-100); Mean Platelet Volume 9.1 fL (9.1-12.4); NEUTROPHILS ABSOLUTE AUTO 7.92 K/mm3 (1.96-9.15); NEUTROPHILS PERCENT AUTO 91 % (41-73); Platelet Count 321 K/mm3 (150-400); RDW Coefficient Variation 15.4 % (11.7-14.2); RDW Standard Deviation 48.8 fL (35.1-46.3); Red Blood Cell Count 4.17 M/mm3 (4.30-5.90); White Blood Cell Count 8.68 K/mm3 (4.00-11.30)
[2020-01-04 05:43] LABS: Anion Gap 1 mmol/L (6-16); Blood Urea Nitrogen 26 mg/dL (8-24); Bun/Creatinine Ratio 56.3 (12.0-20.0); CO2, Blood 39 mmol/L (21-32); Calcium, Blood 9.1 mg/dL (8.5-10.1); Chloride, Blood 97 mmol/L (98-108); Creatinine, Blood 0.46 mg/dL (0.60-1.20); Glomerular Filtration Rate >60 (60-); Glucose, Blood 344 mg/dL (70-99); Potassium, Blood 4.3 mmol/L (3.5-5.5); Sodium, Blood 137 mmol/L (136-145)
--- NOTE | 2020-01-04 17:00 | NUR ---
Shift Summary A/Ox3, pleasant and cooperative with care. Calls for needs appropriately. Follows instructions well, able to assist with bed mobility. Daughter at bedside for brief moment today. 5L O2 per NC. Dressing to coccyx changed. Denies shortness of breath, unbearable pain, diarrhea. No other complaints or acute concerns. Bed in lowest position, call light in reach. Will continue to monitor.
--- NOTE | 2020-01-05 03:30 | NUR ---
SUMMARY NO NEW ISSUES NOTED. PT HAD A GOOD EVENING W/ OUT ISSUE. PT HAS BEEN SLEEPING WELL. PT CURRENTLY SLEEPING AND IN NO DISTRESS. CALL LIGHT IN REACH.
[2020-01-05 04:37] LABS: BASOPHILS ABSOLUTE AUTO 0.01 K/mm3 (0.00-0.23); BASOPHILS PERCENT AUTO 0 % (0-2); EOSINOPHILS ABSOLUTE AUTO 0.01 K/mm3 (0.00-0.68); EOSINOPHILS PERCENT AUTO 0 % (0-6); Hematocrit 37.5 % (37.0-53.0); Hemoglobin 11.2 g/dL (13.5-17.5); IMMATURE GRAN ABSOLUTE AUTO 0.09 K/mm3 (0.00-0.10); IMMATURE GRAN PERCENT AUTO 1 % (0-1); LYMPHOCYTES ABSOLUTE AUTO 0.49 K/mm3 (0.84-5.20); LYMPHOCYTES PERCENT AUTO 6 % (21-46); MONOCYTES ABSOLUTE AUTO 0.35 K/mm3 (0.16-1.47); MONOCYTES PERCENT AUTO 5 % (4-13); Mean Corpuscular HGB Conc 29.9 g/dL (31.5-36.5); Mean Corpuscular Volume 87 fL (80-100); Mean Platelet Volume 9.1 fL (9.1-12.4); NEUTROPHILS ABSOLUTE AUTO 6.78 K/mm3 (1.96-9.15); NEUTROPHILS PERCENT AUTO 88 % (41-73); Platelet Count 329 K/mm3 (150-400); RDW Standard Deviation 48.2 fL (35.1-46.3); White Blood Cell Count 7.73 K/mm3 (4.00-11.30)
[2020-01-05 04:52] LABS: Anion Gap 3 mmol/L (6-16); Blood Urea Nitrogen 20 mg/dL (8-24); Bun/Creatinine Ratio 41.9 (12.0-20.0); CO2, Blood 39 mmol/L (21-32); Calcium, Blood 9.2 mg/dL (8.5-10.1); Chloride, Blood 95 mmol/L (98-108); Creatinine, Blood 0.48 mg/dL (0.60-1.20); Glomerular Filtration Rate >60 (60-); Glucose, Blood 328 mg/dL (70-99); Potassium, Blood 4.4 mmol/L (3.5-5.5); Sodium, Blood 137 mmol/L (136-145)
[2020-01-05 05:37] LABS: Base Excess Venous 15.2 mmol/L; PCO2 Venous 63.7 mmHg (38-42); PO2 Venous 108 mmHg (38-42); pH Blood Venous 7.41 (7.34-7.37)
[2020-01-05 05:38] LABS: Bicarbonate Venous 36.6 mmol/L (24.0-30.0)
--- NOTE | 2020-01-05 07:58 | NUR ---
CNA2 STUDENT DOING CLINICALS AND CARE
[2020-01-05 11:29] LABS: Vancomycin, Trough 13.8 ug/mL (5.0-10.0)
[2020-01-05 12:55] LABS: Percent Saturation 19.2 % (20.0-50.0)
--- NOTE | 2020-01-05 18:26 | NUR ---
Shift Summary C/O pain to R cano. Medicated with Tylenol per EMAR with minimal relief. Massaged area, applied lotion, provided range of motion, and elevated R leg for additional comfort. Dressings to buttock changed, nystatin applied to folds. Remains on 5L NC, no s/s shortness of breath. Otherwise, patient had an uneventful day.
[2020-01-06 04:24] LABS: BASOPHILS ABSOLUTE AUTO 0.01 K/mm3 (0.00-0.23); BASOPHILS PERCENT AUTO 0 % (0-2); EOSINOPHILS PERCENT AUTO 0 % (0-6); Hematocrit 40.9 % (37.0-53.0); Hemoglobin 12.3 g/dL (13.5-17.5); IMMATURE GRAN ABSOLUTE AUTO 0.14 K/mm3 (0.00-0.10); IMMATURE GRAN PERCENT AUTO 2 % (0-1); LYMPHOCYTES PERCENT AUTO 7 % (21-46); MONOCYTES ABSOLUTE AUTO 0.37 K/mm3 (0.16-1.47); MONOCYTES PERCENT AUTO 5 % (4-13); Mean Corpuscular HGB 26.2 pg (26.0-34.0); Mean Corpuscular HGB Conc 30.1 g/dL (31.5-36.5); Mean Corpuscular Volume 87 fL (80-100); Mean Platelet Volume 8.9 fL (9.1-12.4); NEUTROPHILS ABSOLUTE AUTO 6.55 K/mm3 (1.96-9.15); NEUTROPHILS PERCENT AUTO 87 % (41-73); Platelet Count 315 K/mm3 (150-400); RDW Coefficient Variation 14.9 % (11.7-14.2); RDW Standard Deviation 47.8 fL (35.1-46.3); Red Blood Cell Count 4.69 M/mm3 (4.30-5.90); White Blood Cell Count 7.57 K/mm3 (4.00-11.30)
[2020-01-06 04:40] LABS: Anion Gap 1 mmol/L (6-16); Blood Urea Nitrogen 19 mg/dL (8-24); Bun/Creatinine Ratio 30.9 (12.0-20.0); CO2, Blood 42 mmol/L (21-32); Calcium, Blood 9.2 mg/dL (8.5-10.1); Chloride, Blood 94 mmol/L (98-108); Creatinine, Blood 0.62 mg/dL (0.60-1.20); Glomerular Filtration Rate >60 (60-); Glucose, Blood 351 mg/dL (70-99); Potassium, Blood 4.6 mmol/L (3.5-5.5); Sodium, Blood 137 mmol/L (136-145)
--- NOTE | 2020-01-06 05:06 | NUR ---
ECHOCARDIOGRAPH TECHNICIAN SUMMARY PT BEGAN SHIFT W C/O R [place] PAIN AND WAS GIVEN TYLENOLN WHICH BROUGHT JHIM SOME RELIEF. PT DENIED ANY OTHER PAIN OR NAUSEA DURING THE NIGHT AND SLEPT COMFORTABLY FOR MOST OF THE SHIFT W NO NEW S/S.
[2020-01-06] MEDS ORDERED: Q-Tussin100 MG/5 M PO (09:45)
[2020-01-06] MEDS ORDERED: DOXY100 PO (09:45)
--- NOTE | 2020-01-06 15:11 | NUR ---
1259 PT DISCHARGED HOME VIA GURNEY TRANSPORT. IV'S REMOVED. NEW RX FA[facility]ED TO [facility] PER PT REQUEST. D/C INSTRUCTIONS REVIEWED WITH PT AND COPY PROVIDED. NO OTHER CHANGES OR CONCERNS.
== END 2020-01-06 13:00 | disposition home or self-care (01) | DRG 698 ==
LOC: ER 04:31 → ERHOLD 06:17 → MEDS 11:53
PROVIDERS: Emergency Medicine; Internal Medicine; ADMIT Internal Medicine
DX: T83.511A Infection and inflammatory reaction due to indwelling urethral catheter, initial encounter (principal); A41.51 Sepsis due to Escherichia coli [E. coli]; J18.9 Pneumonia, unspecified organism; J96.21 Acute and chronic respiratory failure with hypoxia; J96.22 Acute and chronic respiratory failure with hypercapnia; J98.11 Atelectasis; J44.0 Chronic obstructive pulmonary disease with (acute) lower respiratory infection; I50.32 Chronic diastolic (congestive) heart failure; J44.1 Chronic obstructive pulmonary disease with (acute) exacerbation; I48.92 Unspecified atrial flutter; N39.0 Urinary tract infection, site not specified; L89.892 Pressure ulcer of other site, stage 2; G89.4 Chronic pain syndrome; E11.9 Type 2 diabetes mellitus without complications; E86.0 Dehydration; E66.01 Morbid (severe) obesity due to excess calories; G47.33 Obstructive sleep apnea (adult) (pediatric); Z99.81 Dependence on supplemental oxygen; I11.0 Hypertensive heart disease with heart failure; Z89.612 Acquired absence of left leg above knee; F17.210 Nicotine dependence, cigarettes, uncomplicated; Z66 Do not resuscitate; I27.81 Cor pulmonale (chronic)
CPT/HCPCS: 0202U; 36415; 71045; 80048; 80053; 80202; 81001; 82728; 82803; 82947; 83540; 83550; 83605; 83880; 84145; 84484; 85025; 87040; 87077; 87086; 87186; 93005; 93010; 94640; 94644; 94667; 94668; 94760; 96365; 96366; 96375; 99285-25; A9270; A9270-GY; J0456; J0696; J1650; J1956; J2930; J3370; J7030; J7050; J7512

== ENCOUNTER 2020-03-11 22:57 | Inpatient (IN) | payer OTHER, MEDICARE ==
[~2020-03-11] VITALS: Ht 182.9 cm; Wt 127.3 kg
[~2020-03-11 22:57] MED LIST changes: +ALBU2.5V5 INH; -ALBU3IS INH; +DOXY100 PO; +Q-Tussin100 MG/5 M PO
[2020-03-11 23:14] LABS: BASOPHILS ABSOLUTE AUTO 0.02 K/mm3 (0.00-0.23); BASOPHILS PERCENT AUTO 0 % (0-2); EOSINOPHILS ABSOLUTE AUTO 0.01 K/mm3 (0.00-0.68); EOSINOPHILS PERCENT AUTO 0 % (0-6); Hematocrit 38.2 % (37.0-53.0); Hemoglobin 10.8 g/dL (13.5-17.5); IMMATURE GRAN ABSOLUTE AUTO 0.03 K/mm3 (0.00-0.10); IMMATURE GRAN PERCENT AUTO 0 % (0-1); LYMPHOCYTES ABSOLUTE AUTO 0.38 K/mm3 (0.84-5.20); LYMPHOCYTES PERCENT AUTO 6 % (21-46); MONOCYTES ABSOLUTE AUTO 0.83 K/mm3 (0.16-1.47); MONOCYTES PERCENT AUTO 12 % (4-13); Mean Corpuscular HGB 26.1 pg (26.0-34.0); Mean Corpuscular HGB Conc 28.3 g/dL (31.5-36.5); Mean Corpuscular Volume 92 fL (80-100); NEUTROPHILS ABSOLUTE AUTO 5.53 K/mm3 (1.96-9.15); NEUTROPHILS PERCENT AUTO 81 % (41-73); Platelet Count 248 K/mm3 (150-400); RDW Coefficient Variation 15.9 % (11.7-14.2); RDW Standard Deviation 54.3 fL (35.1-46.3); Red Blood Cell Count 4.14 M/mm3 (4.30-5.90)
[2020-03-11 23:15] LABS: PCO2 Arterial 101 mmHg (35-45); PO2 Arterial 192 mmHg (80-100); pH Blood Arterial 7.24 (7.35-7.45)
[2020-03-11 23:37] LABS: Source, Urine Catheter
[2020-03-11 23:39] LABS: Alanine Aminotransfer (ALT/SGP 22 U/L (12-78); Albumin, Blood 2.5 g/dL (3.4-5.0); Albumin/Globulin Ratio 0.5 (0.8-1.8); Alk Phos 129 U/L (50-136); Anion Gap 2 mmol/L (6-16); Aspartate Aminotrans (AST/SGOT 29 U/L (12-37); Bilirubin, Total 0.6 mg/dL (0.1-1.0); Blood Urea Nitrogen 14 mg/dL (8-24); CO2, Blood 43 mmol/L (21-32); Calcium, Blood 8.7 mg/dL (8.5-10.1); Chloride, Blood 93 mmol/L (98-108); Creatinine, Blood 0.47 mg/dL (0.60-1.20); Globulin, Blood 4.9 g/dL (2.2-4.0); Glomerular Filtration Rate >60 (60-); Glucose, Blood 257 mg/dL (70-99); Potassium, Blood 4.2 mmol/L (3.5-5.5); Sodium, Blood 138 mmol/L (136-145); Total Protein, Blood 7.4 g/dL (6.4-8.2); Troponin I <0.015 ng/mL (0.000-0.040)
[2020-03-11 23:39] LABS: Blood, Urine 5+ (Neg); Glucose Qualitative, Urine Neg (Neg); Ketones, Urine 2+ (Neg); Leukocyte Esterase, Urine 3+ (Neg); Nitrite, Urine Pos (Neg); Protein, Urine 3+ (Neg); Specific Gravity, Urine 1.025 (1.003-1.022); Urobilinogen, Urine 2+ (Normal)
[2020-03-11 23:54] LABS: Appearance, Urine Cloudy (Clear); Bilirubin, Urine 1+ (Neg); Color, Urine Amber (P-Yellow)
[2020-03-11 23:56] LABS: Red Blood Cells, Urine TNTC /hpf (0-2); White Blood Cells, Urine TNTC /hpf (0-5)
[2020-03-11 23:57] LABS: Squamous Epithelial Cells Rare /hpf (Few)
[2020-03-11 23:58] LABS: Bacteria Many /hpf
[2020-03-11 23:59] LABS: Triple Phosphate Crystals Few /hpf
[2020-03-12 00:37] LABS: Influenza A, PCR Negative (NEGATIVE); Influenza B, PCR Negative (NEGATIVE); Resp Syncytial Virus, PCR Negative (NEGATIVE); SARS-Cov-2 (COVID-19) PCR, MMC Negative (NEGATIVE)
--- NOTE | 2020-03-12 02:30 | NUR ---
ADMIT/ASSESSMENT PT ADMITTED TO ICU 07 VIA ER. PT ARRIVED VIA GURNEY WITH RT AND A NURSE. PT INTUBATED AND ON MECH VENT. PT NOT WAKING UP OR FOLLOWING INSTRUCTIONS BUT MOVING EXT. BILAT SOFT WRIST RESTRAINTS ON. PT TRANSFERED TO BED BY STAFF WITH SLIDER SHEET. BED BATH GIVEN. BOTTOM AND BREANNE AREA RED AND EXCORIATED. WOUND NOTED TO RIGHT CALF. ALL FOLD RED AND YEASTY. LUNG COARSE AND DECREASED. VENT SETTINGS AC 16 TV 550 PEEP 5 FIO2 40%. SUCTIONED LARGE AMT THICK DOMINGUEZ SERCTIONS VIA ET TUBE. IV 18G TO RIGHT AC, FLUSHED WITHOUT DIFFICULTY. PROPOFOL STARTED AT 15 MCQ/KG/MIN. IV 20G FIELD START TO LEFT AC, FLUSHED WITHOUT DIFFICULTY. NS 75 ML/HR STARTED. BAJWA CATH CHANGED IN ER. DRAINING DARK YELLOW URINE. OG TO LIS WITH BROWN DRAINAGE. HEART RATE IRREGULAR. BP STABLE.
--- NOTE | 2020-03-12 04:35 | NUR ---
FAMILY DAUGHTER KEN CALLED FOR UPDATE. CONSENT OBTAINED FOR BLOOD PRODUCTS IF NEEDED. DAUGHTER STATED,"WHEN HE WAS IN THE HOSPITAL LAST TIME HE HAD A POLST THAT DONE THAT SAID NO INTUBATION". EXPLAINED THAT FAMILY WILL NEED TO TALK TO DOCTOR AND PALLATIVE CARE TODAY ABOUT HIS CODE STATUS AND WHEATHER THE FAMILY WANTS TO EXTUBATE HIM. GAVE DAUGHTER UPDATE.
--- NOTE | 2020-03-12 06:34 | NUR ---
SHIFT SUMMARY PT ADMITTED DURING THE NIGHT. INTUBATED AND ON MECH VENT. LUNGS COARSE THROUGOUT. SUCTIONED LARGE AMT THICK DOMINGUEZ SPUTUM. HEART RATE REGULAR, BP STABLE. PT HAD EXTRA LARGE SOFT STOOL. TURNED SIDE TO SIDE TO KEEP OFF BOTTOM. SEVERE EXCORIATION TO BOTTOM AND BREANNE AREA. YEAST TO FOLDS. PROPOFOL CURRENTLY AT 30MCQ/KG/MIN. NS AT 75 ML/HR FOR ONE LITER. MIN AMT DARK YELLOW/PEYTON URINE. TALKED WITH DAUGHTER ABOUT CODE STATUS AND POSSIBLE EXTUBATION. DAUGHTER STATES,"HE WOULD NOT WANT TO BE INTUBATED". REPORT TO ON COMING NURSE
--- NOTE | 2020-03-12 07:00 | NUR ---
PT RECEIVED FROM BUBBA FRITZ. PT ON VENT /, COUGHING WITH THICK RETURN ON SUCTIONING. PT GRIMACING AND "FIGHTING" WITH ANY CARE GIVEN. PROPOFOL INFUSING AT 30MCG, NS AT 75, SOFT RESTRAINTS ON WRISTS, PT CHEWING ON TUBE. FIDGETING. LOWER ABDOMEN/GROIN AREA DRIED AND CLEANED, BAJWA IN PLACE WITH CREAMY EXUDATE AT THE HEAD OF THE PENIS, CLEANED. PT GIVEN SEDATION VACATION FOR ABOUT 5 MINUTES, OPENED EYES WHEN ASKED. NO OTHER COMMANDS FOLLOWED. SEDATION PLACED AT 40 MCG.
[2020-03-12 07:55] LABS: Troponin I 0.102 ng/mL (0.000-0.040)
[2020-03-12 08:51] LABS: Base Excess Venous 22.9 mmol/L; Bicarbonate Venous 44.6 mmol/L (24.0-30.0); PCO2 Venous 57.3 mmHg (38-42); PO2 Venous 49.4 mmHg (38-42); pH Blood Venous 7.51 (7.34-7.37)
--- NOTE | 2020-03-12 09:00 | NUR ---
IN TO SEE PT. HAS SUSPENDED THE PROPOFOL AND THE IV INFUSION. HE HAS SPOKEN WITH FAMILY AND THEY HAVE CHOSEN TO REMOVE THE VENTILATOR THIS AFTERNOON WHEN THE FAMILY CAN BE HERE.
--- NOTE | 2020-03-12 14:30 | NUR ---
PT'S DAUGHTER HERE, DR. HIGH READY FOR EXTUBATION. PT PUT ON BIPAP 10/5 30%. PT RESTLESS, UNSETTLED. PRECEDEX STARTED. MORPHINE GIVEN.
--- NOTE | 2020-03-12 17:56 | NUR ---
pt extubated, called by nursing to speak with daughter. She recognized this abstract writer from inteations and care of other family memebers. Daughter expressing great stress at pt being intubated in the field. She knows this would not be his wishes. We reviewed past discussion of care and settled and plan of care. At this time will stay the course and keep on bipap and offer limited care no repeat intubation. The hoep is that he can recover enouthg to interact with family and survive amee. Eventual goal is transition to hospice as he has had steady decline and expression and feeling of he is at the end of his life. Daughter states her and he siblings grieving and having anticipatory grief.Pt lives with her and her children are very attached. She is seeking help in how to manage teir grief. Advised that we can talk later about resources and support from [facility]. She does not want to do hospice at home. He is service connected vet updated resident caregiver on getting access to VA benefits.
--- NOTE | 2020-03-12 19:00 | NUR ---
SHIFT SUMMARY: PT CONTINUES ON BIPAP 18/10 50%. PT MORE RESTFUL AFTER THE MORPHINE. DR. HIGH HAS STOPPED THE PRECEDEX FOR THE NIGHT. PT REMAINS WITH LABORED BREATHING, GARGLING CHEST, ABLE TO COUGH WITH ENCOURAGEMENT. IV PATENT X 2 IN RIGHT A/C AND RIGHT WRIST/FOREARM AREA. WHILE HIS FAMILY WAS WITH HIM TODAY, 2 DAUGHTERS, 1 SON, THEY SPOKE WITH BUBBA MOBLEY FROM PALLIATIVE CARE AND MADE THE DECISION TO WATCH HIM OVER THE NEXT 24-48 HOURS, IF NO IMPROVEMENT THEY WOULD CHANGE HIS STATUS TO COMFORT CARE. ONCE THE PATIENT WAS MEDICATED AND COMFORTABLE THE CHILDREN LEFT.
--- NOTE | 2020-03-12 19:27 | NUR ---
ASSUMPTION OF CARE RECEIVED REPORT FROM DECLAN MAC, ASSUMED CARE OF PATIENT. PATIENT IN BED, NO RESPONSE TO VERBAL OR PHYSICAL STIMULI. BIPAP 18/10, FIO2 50% AT 1915, DECREASED AT THIS TIME TO 14/, 30% FIO2. SATS ABOVE 88% ORDERED. BAJWA CATHETER PATENT AND DRAINING, CLEAR YELLOW URINE. 2 PIV SL TO RUE. VITALS STABLE CHARTED. WILL REVIEW ORDERS AND TREAT PRESCRIBED.
[2020-03-13 05:17] LABS: BASOPHILS ABSOLUTE AUTO 0.04 K/mm3 (0.00-0.23); BASOPHILS PERCENT AUTO 1 % (0-2); EOSINOPHILS ABSOLUTE AUTO 0.05 K/mm3 (0.00-0.68); EOSINOPHILS PERCENT AUTO 1 % (0-6); Hematocrit 33.5 % (37.0-53.0); Hemoglobin 9.9 g/dL (13.5-17.5); IMMATURE GRAN ABSOLUTE AUTO 0.03 K/mm3 (0.00-0.10); IMMATURE GRAN PERCENT AUTO 1 % (0-1); LYMPHOCYTES ABSOLUTE AUTO 0.89 K/mm3 (0.84-5.20); LYMPHOCYTES PERCENT AUTO 14 % (21-46); MONOCYTES ABSOLUTE AUTO 0.75 K/mm3 (0.16-1.47); MONOCYTES PERCENT AUTO 11 % (4-13); Mean Corpuscular HGB 26.3 pg (26.0-34.0); Mean Corpuscular HGB Conc 29.6 g/dL (31.5-36.5); Mean Corpuscular Volume 89 fL (80-100); Mean Platelet Volume 9.5 fL (9.1-12.4); NEUTROPHILS PERCENT AUTO 73 % (41-73); Platelet Count 244 K/mm3 (150-400); Red Blood Cell Count 3.76 M/mm3 (4.30-5.90); White Blood Cell Count 6.56 K/mm3 (4.00-11.30)
[2020-03-13 05:37] LABS: Anion Gap 4 mmol/L (6-16); Blood Urea Nitrogen 15 mg/dL (8-24); Bun/Creatinine Ratio 30.9 (12.0-20.0); CO2, Blood 43 mmol/L (21-32); Calcium, Blood 8.4 mg/dL (8.5-10.1); Chloride, Blood 95 mmol/L (98-108); Creatinine, Blood 0.49 mg/dL (0.60-1.20); Glomerular Filtration Rate >60 (60-); Glucose, Blood 69 mg/dL (70-99); Potassium, Blood 3.1 mmol/L (3.5-5.5); Sodium, Blood 142 mmol/L (136-145)
--- NOTE | 2020-03-13 06:14 | NUR ---
SHIFT SUMMARY PATIENT RESTED THROUGH NIGHT ON BIPAP, CURRENT SETTINGS 12/5 40% FIO2. PATIENT AWAKE, ORIENTED, ASKING APPROPRIATE QUESTIONS. ORAL CARE PROVIDED. VITALS STABLE CHARTED. BLOOD SUGARS RESULTED AT 65, REPORTED TO DR. DAUGHERTY, D50 GIVEN CHARTED. WILL MONITOR PATIENT'S RESPONSE, AND GIVE REPORT TO ONCOMING RN.
--- NOTE | 2020-03-13 08:00 | NUR ---
PT RECEIVED FROM BUBBA ROGERS. PT AWAKENS TO VOICE,ANSWERS QUESTIONS, VERBALIZES PAIN,TOLERATING BIPAP. ASKED FOR WATER. ASKED QUESTIONS ABOUT SITUATION,WHEN HE CAME IN AND WHAT HAPPENED SINCE. OVERVIEW GIVEN, PT VERBALIZED UNDERSTANDING. LUNGS SOUND IMPROVED TODAY, LESS COARSE WITH CONTINUED EXPIRATORY WHEEZE. PT WITH BOWEL SOUNDS, CATHETER IN PLACE, PT DENIES ANY C/O RELATED TO CATHETER. SKIN FOLDS REMAIN REDDENED AND TENDER/PT STATES HIS RIGHT LEG IS PAINFUL, THIS IS NOT NEW. TOLERATING BIPAP WELL.
--- NOTE | 2020-03-13 10:00 | NUR ---
DR. HIGH IN TO SEE PT. PATIENT TAKEN OFF BIPAP AND PLACED ON 2L/NC SATS DROPPED TO THE MID'S 80'S, DR. HIGH ASKED TO BE PLACED AT 4L/NC. PT REMINDED TO BREATHE IN THROUGH HIS NOSE FOR THE OXYGEN. SATS IMPROVED.
[2020-03-13 15:39] LABS: Vancomycin, Trough 14.7 ug/mL (5.0-10.0)
--- NOTE | 2020-03-13 18:28 | NUR ---
ED HAS HAD A GOOD DAY. ED BEGAN THE DAY ON BIPAP / 40%. MID MORNING PLACED HIM ON NASAL CANNULA AT 4L TO KEEP SATS >88%. ED WENT ON BIPAP A COUPLE OF TIMES THROUGHOUT THE DAY, BUT TOLERATED THE NASAL CANNULA WELL. HIS MOOD HAS BEEN GOOD, HE IS NOW TOLERATING ICE CHIPS AND USING THE YANKAUER TO SUCTION HIS AIRWAY WHEN HE DOES PRODUCE FROM HIS COUGH. HIS LUNGS SOUND COARSE WITH A MOIST COUGH, THE COUGH IS NOT OFTEN PRODUCTIVE. HAS GIVEN LASIX TO HELP CLEAR THE FLUID. HIS DAUGHTER WAS IN FOR ABOUT AN HOUR TODAY, SHE SPOKE WITH LEANDRA FROM PALIATIVE CARE. HE WAS CHANGED TO PCU STATUS AND THIS WAS EXPLAINED TO HIM.
--- NOTE | 2020-03-13 22:25 | NUR ---
ARRYTHMIA / CALL TO PT MONITOR SHOWING AFIB W/ AVERAGE HR 70's-90's. PT W/ NOTED HR INCREASE TO 110's-120's FOLLOWED BY DECREASE IN HR TO 40's-50's. EVENT STRIPS PRINTED & PLACED IN CHART. CALL TO MD WALLS W/ ORDER TO DRAW BMP & MG VALUES & DC 2300 SCHEDULED IV LASIX.
[2020-03-13 23:02] LABS: Anion Gap 8 mmol/L (6-16); Blood Urea Nitrogen 15 mg/dL (8-24); Bun/Creatinine Ratio 33.9 (12.0-20.0); CO2, Blood 39 mmol/L (21-32); Calcium, Blood 8.7 mg/dL (8.5-10.1); Chloride, Blood 95 mmol/L (98-108); Creatinine, Blood 0.44 mg/dL (0.60-1.20); Glomerular Filtration Rate >60 (60-); Glucose, Blood 94 mg/dL (70-99); Magnesium, Blood 1.9 mg/dL (1.6-2.4); Potassium, Blood 3.2 mmol/L (3.5-5.5); Sodium, Blood 142 mmol/L (136-145)
[2020-03-14 03:26] LABS: BASOPHILS ABSOLUTE AUTO 0.04 K/mm3 (0.00-0.23); BASOPHILS PERCENT AUTO 1 % (0-2); EOSINOPHILS ABSOLUTE AUTO 0.09 K/mm3 (0.00-0.68); EOSINOPHILS PERCENT AUTO 1 % (0-6); Hematocrit 35.8 % (37.0-53.0); Hemoglobin 10.5 g/dL (13.5-17.5); IMMATURE GRAN ABSOLUTE AUTO 0.03 K/mm3 (0.00-0.10); IMMATURE GRAN PERCENT AUTO 0 % (0-1); LYMPHOCYTES ABSOLUTE AUTO 0.79 K/mm3 (0.84-5.20); LYMPHOCYTES PERCENT AUTO 11 % (21-46); MONOCYTES ABSOLUTE AUTO 0.68 K/mm3 (0.16-1.47); MONOCYTES PERCENT AUTO 9 % (4-13); Mean Corpuscular HGB 26.3 pg (26.0-34.0); Mean Corpuscular HGB Conc 29.3 g/dL (31.5-36.5); Mean Corpuscular Volume 90 fL (80-100); NEUTROPHILS ABSOLUTE AUTO 5.88 K/mm3 (1.96-9.15); NEUTROPHILS PERCENT AUTO 78 % (41-73); Platelet Count 247 K/mm3 (150-400); RDW Coefficient Variation 15.8 % (11.7-14.2); RDW Standard Deviation 52.2 fL (35.1-46.3); Red Blood Cell Count 3.99 M/mm3 (4.30-5.90); White Blood Cell Count 7.51 K/mm3 (4.00-11.30)
[2020-03-14 03:44] LABS: Anion Gap 5 mmol/L (6-16); Blood Urea Nitrogen 15 mg/dL (8-24); Bun/Creatinine Ratio 37.5 (12.0-20.0); CO2, Blood 39 mmol/L (21-32); Calcium, Blood 8.5 mg/dL (8.5-10.1); Chloride, Blood 96 mmol/L (98-108); Glomerular Filtration Rate >60 (60-); Glucose, Blood 84 mg/dL (70-99); Potassium, Blood 3.6 mmol/L (3.5-5.5); Sodium, Blood 140 mmol/L (136-145)
--- NOTE | 2020-03-14 06:44 | NUR ---
SHIFT SUMMARY PT W/ 1 ADDITIONAL RUN OF VTACH CONSISTING OF 18 BTS, SEE EVENT STRIP IN CHART. IV KCL INFUSING PER ORDERS. NO OTHER EVENTS OVER NIGHT. PT SLEEPING MAJORITY OF SHIFT. VSS. MONITOR SHOWING AFIB, HR 40's-120's. REPORT GIVEN TO DAY SHIFT RN.
--- NOTE | 2020-03-14 08:00 | NUR ---
PT RESTING QUIETLY ON BIPAP SINCE CARE ASSUMED @ 0700. PT GIVEN BREAK FROM BIPAP. PLACED ON 5 LITERS NASAL CANULA. PT IS AWAKE AND ALERT. COMMUNICATING NEEDS. HOWEVER, PT IS UNAWARE OF THE SEVERITY OF HIS ILLNESS. PT ASKING FOR A DRINK OF WATER AND FOR FOOD. ATTEMPTED TO EXPLAIN TO PT THAT HE HAS BEEN ASPIRATING ON FOOD AND DRINK. PT STATES THAT HE WAS NOT AWARE OF THIS FACT. ORAL CARE COMPLETED. PT ASKING RN "AM I GOING TO ?" ATTEMPTED TO EXPLAIN TO PT THAT HE HAS SEVERE LUNG DISEASE AND THAT THERE IS NO CURE FOR THIS. PT STATES "I DON'T WANT TO ." ATTEMPTED TO DISCUSS WITH PT WHETHER OR NOT HE WOULD LIKE TO BE RESUSCITATED OR NOT. PT STATES "I DON'T KNOW." DISCUSSED THE OPTION OF FOCUSING HIS CARE ON COMFORT. PT VERBALIZED THAT HE UNDERSTOOD THIS. HOWEVER, PT STATES "I JUST DON'T KNOW WHAT TO DO." LUNGS REMAIN COARSE AND DIMINISHED THROUGH OUT WITH SCATTERED EXPIRATORY WHEEZES ON THE LEFT. OCCASIONAL, WEAK, MOIST, NONPRODUCTIVE COUGH NOTED. PT MAINTAINS SATS>90% ON 5 LITERS NASAL CANULA. DYSPNEA WITH MINIMAL EXERTION. PT NPO. BEDBATTH AND LINEN CHANGE COMPLETED. ANTIFUNGAL POWDER PLACED TO SKIN FOLDS. MULTIPLE FOAM DRESSINGS TO COCCYX AND BUTTOCKS REMAIN C/D/I. RIGHT CALF WITH FOAM DRESSING WELL- ALSO REMAINS C/D/I. PT POSITIONED TO COMFORT ON RIGHT SIDE- PT ASKED FOR THE TELEPHONE. ADMITTED ATTORNEYS ASSISITED HIM WITH CALLING. PT WAS ABLE TO STATE THE PHONE NUMBER ACURATELY.
--- NOTE | 2020-03-14 11:42 | NUR ---
PT DAUGHTER CALLED AND STATED THAT THE FAMILY HAS DECIDED TO MAKE PT COMFORT CARE STATUS. PT DAUGHTER KEN SPOKE WITH DR. HIGH. DR. HIGH SPOKE WITH PT WELL. DR. MOY UPDATED. PT MADE COMFORT CARE, BUT WILL CONTINUE ANTIBIOTICS.
--- NOTE | 2020-03-14 13:07 | NUR ---
PT RESTING QUIETLY WHEN NOT DISTURBED. PT DENIES PAIN OR SOB AT THIS TIME. REPORT PHONE TO BUBBA BUI IN PREP TO TRANSFER PT TO ROOM 364-COMFORT CARE STATUS.
--- NOTE | 2020-03-14 14:21 | NUR ---
ICU TRANSFER TO 364. NEW COMFORT CARE ORDERS. PT STATE NO PAIN @ THIS TIME. HE BECAME SHORT OF BREATH w TRANSFER/TURNING IN BED, HOWEVER ABLE TO RECOVER AFTER 5-6 MIN. HE IS NPO @ THIS TIME, STATES UNDERSTANDING OF ASPIRATION ISSUES. MOIST SPONGES PROVIDED. SX PROVIDED, PT DEMONSTRATE USE. STATE COMFORT @ THIS TIME, CALL LIGHT IN REACH. WILL MX, PROVIDE COMFORT CARE.
--- NOTE | 2020-03-14 16:22 | NUR ---
PT RESTING QUIETLY, WATCHING TV OR TALKING ON PHONE w FAMILY/FRIENDS. NO S/S PAIN. O2 @ 5L,HE IS NOT SOB @ REST. USING SX @ BEDSIDE PRN. MOIST ORAL SWABS PROVIDED, CONTINUES NPO
--- NOTE | 2020-03-14 18:36 | NUR ---
PT STATE NEED FOR NICOTINE PATCH, DR ARMIJO NOTIFIED, PLACED R UPPER ARM. PT STATE BACK, SHOULDERS, R LEG PAIN 6/10. PRN ROXANOL 10MG GIVEN. HE IS PLEASANT, WATCHING TV. MOIST SPONGES & SX @ BEDSIDE.
--- NOTE | 2020-03-15 04:42 | NUR ---
SHIFT SUMMARY PT IS A/O X4. BEDREST OVERNIGHT. HAS BEEN ASSISTED WITH REPOSITIONING PRN, DECLINING REPOSITIONING AT TIMES. MEDICATED FOR PAIN X1 OVERNIGHT; HAS OTHERWISE DECLINED PAIN MEDICATIONS. PT DOES REPORT SOB AND HAS BEEN RECIEVING BREATHING TREATMENTS PRN PER RT. USING O2 VIA NC OVERNIGHT. HOB ELEVATED TO FACILITATE BREATHING. PT NPO, USING MOUTH SWABS AND SUCTION PRN. CATHETER IN PLACE OVERNIGHT. PT RESTING IN BED WITH CALL LIGHT IN REACH AT THIS TIME.
--- NOTE | 2020-03-15 21:09 | NUR ---
2000 70 Y/O OBESE MALE RESTING COMFORTABLY IN BED; DENIES PAIN OR NAUSEA; WEARING O2 AT 5L/M PER NASAL CANNULA; COMFORT CARE MEASURES MAINTAINED; CONTACT PRECAUTIONS.
--- NOTE | 2020-03-16 03:30 | NUR ---
SHIFT SUMMARY: 70 Y/O OBESE MALE RESTED COMFORTABLY ALL SHIFT; PT DNR ON COMFORT CARE MEASURES; CONTACT PRECAUTIONS MAINTAINED; DENIES PAIN OR NAUSEA; WEARING O2 AT 5L/M VIA NASAL CANNULA; ALERT AND ORIENTED X 4; BED ALARM ON FOR SAFETY, BED LOW POSITION WITH CALL LIGHT AT SIDE.
[2020-03-16] MEDS ORDERED: MORP20L SL (09:40)
--- NOTE | 2020-03-16 10:00 | NUR ---
Comfort Care Visit Pt resting in bed upon arrival. Bedside RN providing care. Pt denies pain at this time. Moderate dyspnea noted with Pt reporting SOB has improved. Pt agreeable with D/C plan. Pt to D/C home with hospice today. Palliative Care will remain available.
--- NOTE | 2020-03-16 10:27 | NUR ---
BED BATH GIVEN, BAJWA CARE COMPLETE, AND ANTIFUNGAL POWDER APPLIED TO SKIN FOLDS. PAIN MEDICATION GIVEN FOR AIR HUNGER POST BED BATH. DAUGHTER, KEN CALLED AND VERBALIZED UNDERSTANDING OF THE DISCHARGE ORDERS, ALL QUESTIONS ANSWERED. RX FOR ROXANOL IN DISCHARGE FOLDER. AWAITING TRANSPORT.
--- NOTE | 2020-03-16 10:40 | NUR ---
PICKED UP BY TRANSPORT A THIS TIME TO GO HOME. SON, NEENA, TOOK PATIENTS BELONGINGS AND DISCHARGE INSTRUCTIONS, INCLUDING ROXANOL RX.
== END 2020-03-16 10:51 | disposition hospice, home (50) | DRG 871 ==
LOC: ER 22:57 → ICUE 03-12 01:19 → ICUW 03-12 01:19 → ICUE 03-12 01:50 → MEDS 03-14 13:32
PROVIDERS: Emergency Medicine; Internal Medicine; Internal Medicine Critical Care Medicine; ADMIT Internal Medicine
PROC: 0BH17EZ Insertion of Endotracheal Airway into Trachea, Via Natural or Artificial Opening (ICD-10-PCS; principal; 2020-03-12)
PROC: 5A1935Z Respiratory Ventilation, Less than 24 Consecutive Hours (ICD-10-PCS; 2020-03-12)
DX: A41.9 Sepsis, unspecified organism (principal); J96.21 Acute and chronic respiratory failure with hypoxia; J96.22 Acute and chronic respiratory failure with hypercapnia; J69.0 Pneumonitis due to inhalation of food and vomit; I50.33 Acute on chronic diastolic (congestive) heart failure; J44.1 Chronic obstructive pulmonary disease with (acute) exacerbation; N39.0 Urinary tract infection, site not specified; E87.2 Acidosis; E66.2 Morbid (severe) obesity with alveolar hypoventilation; I48.92 Unspecified atrial flutter; I11.0 Hypertensive heart disease with heart failure; Z20.828 Contact with and (suspected) exposure to other viral communicable diseases; Z66 Do not resuscitate; Z51.5 Encounter for palliative care; E11.42 Type 2 diabetes mellitus with diabetic polyneuropathy; Z89.612 Acquired absence of left leg above knee; Z99.81 Dependence on supplemental oxygen; G47.33 Obstructive sleep apnea (adult) (pediatric); F17.210 Nicotine dependence, cigarettes, uncomplicated; R13.10 Dysphagia, unspecified; G89.29 Other chronic pain; Z68.37 Body mass index [BMI] 37.0-37.9, adult; I44.30 Unspecified atrioventricular block
CPT/HCPCS: 0241U; 31720; 36415; 36600; 51702; 71045; 80048; 80053; 80202; 81001; 82550; 82803; 82947; 83605; 83735; 83880; 84484; 85025; 87040; 87070; 87077; 87086; 87185; 87186; 87205; 93005; 93010; 94002; 94003; 94640; 94660; 94760; 99285-25; A9270; A9270-GY; C9113; J0696; J1650; J1940; J2270; J2704; J3370; J3480; J7030; J7050